=== PATIENT | male | born 1955 | race Caucasian/White ===

== ENCOUNTER 2019-04-06 09:40 | Inpatient (IN) | payer OTHER ==
[~2019-04-06 09:40] MED LIST: EPINEPHrine 1 MG/1 ML Amp ONE; Labetalol 100 MG/20 ML MDV ONE; Lidocaine 1% 10 ML MDV ONE; Midazolam 1 MG/ML 5 ML SDV ONE; methylPREDNISolone Sodium Succinate 125 MG/2 ML SDV ONE
[2019-04-06] MEDS ORDERED: methylPREDNISolone Sodium Succinate 125 MG/2 ML SDV ONE (09:51)
[2019-04-06] MEDS ORDERED: Sodium Chloride 0.9% 10 ML Syringe FLUSH PRN (09:52)
[2019-04-06] MEDS ORDERED: methylPREDNISolone Sodium Succinate 125 MG/2 ML SDV IVPUSH ONE (09:54)
--- NOTE | 2019-04-06 09:54 | EDM.PDOC ---
ED HPI GENERAL MEDICAL PROBLEM - General Chief Complaint: Respiratory Problem Stated Complaint: [facility] Time Seen by Provider: 04/06/19 09:40 Source of Information: Reports: Patient, RN Notes Reviewed - History of Present Illness INITIAL COMMENTS - FREE TEXT/NARRATIVE: 64-year-old male has been brought in by [facility] [facility] ambulance with severe difficulty breathing. He does have advanced COPD. He is chronically short of breath but had been doing fine during the night and had been up for close to an hour this morning also continuing to do okay when he suddenly said "I can't breathe". He does have chronic cough associated with his COPD but has not been coughing more than typical. His states that he did do fine with his breathing during the night and seemed to be doing okay this morning until his sudden difficulty getting enough air. Family apparently did have an oximeter and his sats were down into the 60s prior to EMS arrival. On EMS arrival he was down to around 50, very dusky face and upper body. He does have history of pneumonia. His states that he very that he very strongly has made it known that he does not want to be intubated or on a ventilator. - Related Data Allergies Allergy/AdvReac Type Severity Reaction Status Date / Time No Known Allergies Allergy Verified 04/06/19 11:46 Home Meds: Home Meds Albuterol Sulfate [Albuterol Sulfate Hfa] 2 puff IH Q4HR PRN 10/16/18 [History] Albuterol/Ipratropium [DuoNeb 3.0-0.5 MG/3 ML] 3 ml IH BID 10/16/18 [History] Budesonide/Formoterol Fumarate [Symbicort 80-4.5 Mcg Inhaler] 2 puff IH BID [History] Tiotropium [place] [Spiriva Respimat] 2.5 mcg IH DAILY 10/16/18 [History] ED ROS GENERAL - Review of Systems Review Of Systems: Unable To Obtain (Unable to obtain complete ROS, the information I am getting is from his and daughter) Constitutional: Denies: Fever, Chills, Diaphoresis HEENT: Denies: Throat Pain Respiratory: Reports: Shortness of Breath, Cough. Denies: Hemoptysis Skin: Reports: Change in Color (Face and upper body was very dusky upon EMS arrival) ED EXAM, GENERAL - Physical Exam Exam: See Below General Appearance: Obtunded, Severe Distress Eye Exam: Bilateral Eye: PERRL Throat/Mouth: Normal Inspection Head: Atraumatic. No: Facial Swelling Neck: Supple, Other (Bilateral JVD) Respiratory/Chest: Respiratory Distress (Severe), Wheezing (Mild bilateral), Accessory Muscle Use, Retractions (Moderate) Cardiovascular: Tachycardia (132) GI/Abdominal: Soft, Non-Tender. No: Distended Extremities: No Pedal Edema. No: Increased Warmth, Redness (Legs are not red or swollen) Neurological: Unresponsive Skin Exam: Dry, Other (Face and upper body still somewhat dusky on arrival to ED ) Course - Vital Signs Last Recorded V/S: Last Vital Signs Temp 98.5 F 04/06/19 11:49 Pulse 130 H 04/06/19 11:49 Resp 23 H 04/06/19 11:49 BP 189/135 H 04/06/19 11:49 Pulse Ox 74 L 04/06/19 11:49 - Orders/Labs/Meds Orders: Active Orders 24 hr Category Date Time Status Oxygen Therapy [RC] ASDIRECTED Care 04/06/19 09:53 Active Peripheral IV Care [RC] Q2HR Care 04/06/19 09:53 Active RT Aerosol Therapy [RC] ASDIRECTED Care 04/06/19 09:54 Active Chest 1V-Tube Placement Chk NC [CR] Routine Exams 04/06/19 11:00 Taken Sodium Chloride 0.9% [Normal Saline] 1,000 ml Med 04/06/19 12:45 Active IV ASDIRECTED Sodium Chloride 0.9% [Saline Flush] Med 04/06/19 09:52 Active 10 ml FLUSH ASDIRECTED PRN Peripheral IV Insertion Adult [OM.PC] Stat Oth 04/06/19 09:53 Ordered Medication Orders Acetaminophen (Tylenol) 650 mg PO Q4H PRN PRN Reason: Pain (Mild 1-3)/fever Hydrocodone Bitart/Acetaminophen ([place] 325-5 Mg) 1 tab PO Q4H PRN PRN Reason: Pain (moderate 4-6) Albuterol (Proventil Hfa) 0 gm INH Q4H PRN PRN Reason: Shortness of Breath Albuterol/Ipratropium (Duoneb 3.0-0.5 Mg/3 Ml) 3 ml INH BIDRT [facility] Bisacodyl (Dulcolax) 5 mg PO DAILY PRN PRN Reason: Constipation Docusate Sodium (Colace) 100 mg PO BID PRN PRN Reason: Constipation Glycopyrrolate (Seebri Neohaler) 0 mcg IH BIDRT [facility] Guaifenesin/Phenylephrine HCl (Robitussin Dm) 10 ml PO Q4H PRN PRN Reason: Cough Hydromorphone HCl (Dilaudid) 0.25 mg IVPUSH Q2H PRN PRN Reason: Pain (severe 7-10) Sodium Chloride (Normal Saline) 1,000 mls @ 150 mls/hr IV ASDIRECTED [facility] Last Admin: 04/06/19 12:42 Dose: 150 mls/hr Magnesium Sulfate/Dextrose 1 (gm/ Premix) 100 mls @ 100 mls/hr IV ONETIME ONE Stop: 04/06/19 14:59 Promethazine HCl 6.25 mg/ (Sodium Chloride) 50.25 mls @ 100 mls/hr IV Q6H PRN PRN Reason: Nausea/Vomiting Azithromycin 250 mg/ Sodium (Chloride) 250 mls @ 250 mls/hr IV Q24H [facility] Lorazepam (Ativan) 1 mg IV Q6H PRN PRN Reason: Anxiety Magnesium Oxide (Magnesium Oxide) 400 mg PO BID [facility] Methylprednisolone Sodium Succinate (Solu-Medrol) 125 mg IVPUSH Q8H [facility] Mometasone Furoate/Formoterol Fumar (Dulera 100-5 Mcg) 0 puff IH BIDRT [facility] Morphine Sulfate (Morphine) 1 mg IVPUSH Q2H PRN PRN Reason: Pain (severe 7-10) Stop: 04/07/19 14:02 Ondansetron HCl (Zofran) 4 mg IV Q6H PRN PRN Reason: Nausea/Vomiting Pantoprazole Sodium (Protonix Iv) 40 mg IV Q12HR [facility] Polyethylene Glycol (Miralax) 17 gm PO DAILY PRN PRN Reason: Constipation Senna/Docusate Sodium (Senna Plus) 1 tab PO BID PRN PRN Reason: Constipation Sodium Chloride (Saline Flush) 10 ml FLUSH ASDIRECTED PRN PRN Reason: Keep Vein Open Last Admin: 04/06/19 12:39 Dose: 10 ml Temazepam (Restoril) 7.5 mg PO BEDTIME PRN PRN Reason: Sleep Labs: Laboratory Tests 04/06/19 04/06/19 04/06/19 Range/Units 09:45 09:45 09:45 WBC 16.67 H (4.23-9.07) K/mm3 RBC 5.15 (4.63-6.08) M/mm3 Hgb 15.0 (13.7-17.5) gm/L Hct 47.1 (40.1-51.0) % MCV 91.5 (79.0-92.2) fl MCH 29.1 (25.7-32.2) pg MCHC 31.8 L (32.2-35.5) g/dl RDW Std Deviation 46.1 H (35.1-43.9) fL Plt Count 283 (163-337) K/mm3 MPV 10.2 (9.4-12.3) fl Neut % (Auto) 28.4 L (34.0-67.9) % Lymph % (Auto) 60.1 H (21.8-53.1) % [place] % (Auto) 7.0 (5.3-12.2) % Eos % (Auto) 3.3 (0.8-7.0) Baso % (Auto) 1.0 (0.1-1.2) % Neut # (Auto) 4.73 (1.78-5.38) K/mm3 Lymph # (Auto) 10.02 H (1.32-3.57) K/mm3 [place] # (Auto) 1.17 H (0.30-0.82) K/mm3 Eos # (Auto) 0.55 H (0.04-0.54) K/mm3 Baso # (Auto) 0.17 H (0.01-0.08) K/mm3 Manual Slide Review Normal smear PT 10.8 (9.5-12.1) SECONDS INR 0.99 APTT 27 (24-31) SECONDS ABG pH (7.35-7.45) ABG pCO2 (35.0-45.0) mmHg ABG pO2 (80.0-100.0) mmHg ABG HCO3 (22.0-26.0) meq/L ABG O2 Saturation (96.0-97.0) % ABG Base Excess (-2-2.0) Junaid Test A-a Gradient mmHg FiO2 (21.00-100.00) % Sodium 141 (136-145) mEq/L Potassium 4.3 (3.5-5.1) mEq/L Chloride 104 (98-107) mEq/L Carbon Dioxide 27 (21-32) mEq/L Anion Gap 14.3 (5-15) BUN 10 (7-18) mg/dL Creatinine 1.0 (0.7-1.3) mg/dL Est Cr Clr Drug Dosing TNP Estimated GFR (MDRD) > 60 (>60) mL/min BUN/Creatinine Ratio 10.0 L (14-18) Glucose 274 H (80-115) mg/dL Calcium 8.9 (8.5-10.1) mg/dL Total Bilirubin 1.1 H (0.2-1.0) mg/dL AST 23 (15-37) U/L ALT 26 (16-63) U/L Alkaline Phosphatase 78 (46-116) U/L C-Reactive Protein < 0.2 (<1.0) mg/dL Total Protein 7.5 (6.4-8.2) g/dl Albumin 4.0 (3.4-5.0) g/dl Globulin 3.5 gm/dL Albumin/Globulin Ratio 1.1 (1-2) 04/06/19 04/06/19 Range/Units 10:13 11:11 WBC (4.23-9.07) K/mm3 RBC (4.63-6.08) M/mm3 Hgb (13.7-17.5) gm/L Hct (40.1-51.0) % MCV (79.0-92.2) fl MCH (25.7-32.2) pg MCHC (32.2-35.5) g/dl RDW Std Deviation (35.1-43.9) fL Plt Count (163-337) K/mm3 MPV (9.4-12.3) fl Neut % (Auto) (34.0-67.9) % Lymph % (Auto) (21.8-53.1) % [place] % (Auto) (5.3-12.2) % Eos % (Auto) (0.8-7.0) Baso % (Auto) (0.1-1.2) % Neut # (Auto) (1.78-5.38) K/mm3 Lymph # (Auto) (1.32-3.57) K/mm3 [place] # (Auto) (0.30-0.82) K/mm3 Eos # (Auto) (0.04-0.54) K/mm3 Baso # (Auto) (0.01-0.08) K/mm3 Manual Slide Review PT (9.5-12.1) SECONDS INR APTT (24-31) SECONDS ABG pH 7.16 L* 7.24 L (7.35-7.45) ABG pCO2 71.5 H* 64.6 H (35.0-45.0) mmHg ABG pO2 428.0 H* 278.0 H* (80.0-100.0) mmHg ABG HCO3 24.5 26.6 H (22.0-26.0) meq/L ABG O2 Saturation 99.4 H 99.4 H (96.0-97.0) % ABG Base Excess -5.7 L -1.6 (-2-2.0) Junaid Test Positive Positive A-a Gradient 197 142 mmHg FiO2 0.00 L (21.00-100.00) % Sodium (136-145) mEq/L Potassium (3.5-5.1) mEq/L Chloride (98-107) mEq/L Carbon Dioxide (21-32) mEq/L Anion Gap (5-15) BUN (7-18) mg/dL Creatinine (0.7-1.3) mg/dL Est Cr Clr Drug Dosing Estimated GFR (MDRD) (>60) mL/min BUN/Creatinine Ratio (14-18) Glucose (80-115) mg/dL Calcium (8.5-10.1) mg/dL Total Bilirubin (0.2-1.0) mg/dL AST (15-37) U/L ALT (16-63) U/L Alkaline Phosphatase (46-116) U/L C-Reactive Protein (<1.0) mg/dL Total Protein (6.4-8.2) g/dl Albumin (3.4-5.0) g/dl Globulin gm/dL Albumin/Globulin Ratio (1-2) Meds: Medications Generic Name Dose Route Start Last Admin Trade Name Freq PRN Reason Stop Dose Admin Acetaminophen 650 mg 04/06/19 14:01 Tylenol PO Q4H PRN Pain (Mild 1-3)/fever Hydrocodone Bitart/Acetaminophen 1 tab 04/06/19 14:01 [place] 325-5 Mg PO Q4H PRN Pain (moderate 4-6) Albuterol 0 gm 04/06/19 13:58 Proventil Hfa INH Q4H PRN Shortness of Breath Albuterol/Ipratropium 3 ml 04/06/19 21:00 Duoneb 3.0-0.5 Mg/3 Ml INH BIDRT [facility] Bisacodyl 5 mg 04/06/19 14:01 Dulcolax PO DAILY PRN Constipation Docusate Sodium 100 mg 04/06/19 14:01 Colace PO BID PRN Constipation Glycopyrrolate 0 mcg 04/07/19 06:00 Seebri Neohaler IH BIDRT [facility] Guaifenesin/Phenylephrine HCl 10 ml 04/06/19 14:06 Robitussin Dm PO Q4H PRN Cough Hydromorphone HCl 0.25 mg 04/06/19 14:01 Dilaudid IVPUSH Q2H PRN Pain (severe 7-10) Sodium Chloride 1,000 mls @ 150 mls/hr 04/06/19 12:45 04/06/19 12:42 Normal Saline IV 150 mls/hr ASDIRECTED [facility] Administration Magnesium Sulfate/Dextrose 1 100 mls @ 100 mls/hr 04/06/19 14:00 gm/ Premix IV 04/06/19 14:59 ONETIME ONE Promethazine HCl 6.25 mg/ 50.25 mls @ 100 mls/hr 04/06/19 14:01 Sodium Chloride IV Q6H PRN Nausea/Vomiting Azithromycin 250 mg/ Sodium 250 mls @ 250 mls/hr 04/06/19 15:00 Chloride IV Q24H [facility] Lorazepam 1 mg 04/06/19 14:01 Ativan IV Q6H PRN Anxiety Magnesium Oxide 400 mg 04/06/19 21:00 Magnesium Oxide PO BID [facility] Methylprednisolone Sodium Succinate 125 mg 04/06/19 18:00 Solu-Medrol IVPUSH Q8H [facility] Mometasone Furoate/Formoterol Fumar 0 puff 04/06/19 21:00 Dulera 100-5 Mcg IH BIDRT [facility] Morphine Sulfate 1 mg 04/06/19 14:01 Morphine IVPUSH 04/07/19 14:02 Q2H PRN Pain (severe 7-10) Ondansetron HCl 4 mg 04/06/19 14:01 Zofran IV Q6H PRN Nausea/Vomiting Pantoprazole Sodium 40 mg 04/06/19 21:00 Protonix Iv IV Q12HR [facility] Polyethylene Glycol 17 gm 04/06/19 14:01 Miralax PO DAILY PRN Constipation Senna/Docusate Sodium 1 tab 04/06/19 14:01 Senna Plus PO BID PRN Constipation Sodium Chloride 10 ml 04/06/19 09:52 04/06/19 12:39 Saline Flush FLUSH 10 ml ASDIRECTED PRN Administration Keep Vein Open Temazepam 7.5 mg 04/06/19 14:01 Restoril PO BEDTIME PRN Sleep Discontinued Medications Generic Name Dose Route Start Last Admin Trade Name Freq PRN Reason Stop Dose Admin Albuterol/Ipratropium 3 ml 04/06/19 09:54 04/06/19 10:00 Duoneb 3.0-0.5 Mg/3 Ml NEB 04/06/19 09:55 3 ml ONETIME ONE Administration Dextrose/Lactated Ringer's 1,000 mls @ 999 mls/hr 04/06/19 12:45 04/06/19 09: 54 Dextrose 5%-Lactated Ringers IV 999 mls/hr ASDIRECTED [facility] Administration Labetalol HCl Confirm 04/06/19 10:03 04/06/19 10:04 Normodyne Administered 04/06/19 10:04 10 mg Dose Administration 100 mg .ROUTE .STK-MED ONE Lorazepam Confirm 04/06/19 12:29 04/06/19 12:40 Ativan Administered 04/06/19 12:30 Not Given Dose 2 mg .ROUTE .STK-MED ONE Lorazepam 1 mg 04/06/19 12:35 04/06/19 12:36 Ativan IV 04/06/19 12:36 1 mg ONETIME ONE Administration Methylprednisolone Sodium Succinate 125 mg 04/06/19 09:54 04/06/19 09:54 Solu-Medrol IVPUSH 04/06/19 09:55 125 mg ONETIME ONE Administration Methylprednisolone Sodium Succinate Confirm 04/06/19 09:51 04/06/19 12:39 Solu-Medrol Administered 04/06/19 09:52 Not Given Dose 125 mg .ROUTE .STK-MED ONE - Re-Assessments/Exams Free Text/Narrative Re-Assessment/Exam: 04/06/19 10:40. As noted patient still in severe respiratory distress on arrival to ED. Sats had improved from around 50 upon EMS arrival to upper 70s on arrival to the ED. This was with 15 L nonrebreather. His made it known right away that he had made it strongly known that he did not want to be intubated or on a ventilator should he get into a respiratory crisis like this. Therefore he was started on BiPAP immediately and also given DuoNeb as soon as possible. We did give 0.3 mils epi IM and Solu-Medrol 125 mg IV. Chest x-ray showed pneumothorax and on further review findings compatible with tension pneumothorax. Therefore needle was placed 2nd intercostal space midclavicular line on the left. There was not a gush of air but sats did immediately improve from around 90 up to 100% within a few minutes. I did call Dr. Arvizu, general surgeon supervisor contact lens to come in and place a chest tube. Postprocedure x-ray does show expansion of the lung [place] previously collapsed. We have decreased his FiO2 from 100% down to 70% over time. He sat still running 100%. Will recheck gases at this time. 04/06/19 11:45. Repeat gases are improved with pH now 7.24, PCO2 64.6 PO2 still elevated at 278. Blood pressure continues to run in the 90s systolic and receiving multiple doses of Versed IV at time of needle insertion and much higher dosage at time of chest tube insertion. He also was given 20 mg labetalol shortly after arrival with initial BP running about 192/130. He will be admitted ICU once they can move a patient out to make room. Departure - Departure Time of Disposition: 11:15 Disposition: Admitted As Inpatient 67 Condition: Serious Clinical Impression: Tension pneumothorax, COPD (chronic obstructive pulmonary disease) Respiratory failure Qualifiers: Chronicity: acute Respiratory failure complication: hypoxia and hypercapnia Qualified Code(s): J96.01 - Acute respiratory failure with hypoxia - Discharge Information ED Communication - Discussed Case With (1) Discussed Case With (1): Admitting Provider (Dr. Garcia, decision to admit at about 11:10) - My Orders Last 24 Hours: My Active Orders 04/06/19 09:52 Sodium Chloride 0.9% [Saline Flush] 10 ml FLUSH ASDIRECTED PRN 04/06/19 09:53 Oxygen Therapy [RC] ASDIRECTED Peripheral IV Care [RC] Q2HR Peripheral IV Insertion Adult [OM.PC] Stat 04/06/19 09:54 RT Aerosol Therapy [RC] ASDIRECTED 04/06/19 11:00 Chest 1V-Tube Placement Chk NC [CR] Routine 04/06/19 12:45 Sodium Chloride 0.9% [Normal Saline] 1,000 ml IV ASDIRECTED - Assessment/Plan Last 24 Hours: My Active Orders 04/06/19 09:52 Sodium Chloride 0.9% [Saline Flush] 10 ml FLUSH ASDIRECTED PRN 04/06/19 09:53 Oxygen Therapy [RC] ASDIRECTED Peripheral IV Care [RC] Q2HR Peripheral IV Insertion Adult [OM.PC] Stat 04/06/19 09:54 RT Aerosol Therapy [RC] ASDIRECTED 04/06/19 11:00 Chest 1V-Tube Placement Chk NC [CR] Routine 04/06/19 12:45 Sodium Chloride 0.9% [Normal Saline] 1,000 ml IV ASDIRECTED
[2019-04-06] MEDS: Albuterol/Ipratropium 3.0-0.5 MG/3 ML Neb Soln NEB ONE ×2 (10:00→14:31)
[2019-04-06] MEDS ORDERED: Labetalol 100 MG/20 ML MDV ONE (10:03)
--- NOTE | 2019-04-06 10:37 | CR ---
Chest: Portable view of the chest was obtained. Comparison: No prior chest x-ray. Large left sided pneumothorax is seen. Lungs are otherwise hyperinflated compatible with emphysematous change. Heart size is not enlarged. Bony structures are grossly intact. Impression: 1. Large left-sided pneumothorax which will require a chest tube. 2. Emphysematous change. Diagnostic code #5
--- NOTE | 2019-04-06 12:25 | OR ---
DATE OF OPERATION: 04/06/2019 SURGEON: Toro Arvizu MD PREOPERATIVE DIAGNOSIS: Tension pneumothorax on the left. POSTOPERATIVE DIAGNOSIS: Tension pneumothorax on the left. OPERATION PERFORMED: Emergent chest tube placement on the left. ESTIMATED BLOOD LOSS: Less than 1 mL. COMPLICATIONS: None. DISPOSITION: Respiratory failure prior to the procedure. CONDITION: Improved postoperatively with a saturation of 100%. FINDINGS: As soon as I entered the thorax, there was a rapid espino of pressurized air emitting from the thoracostomy. The preoperative chest x-ray demonstrated what appeared to be tension with shifting of the mediastinum to the right and a large pneumothorax with collapsed left lung secondary to pneumothorax. DESCRIPTION OF PROCEDURE: The patient could not give consent. He was not responding appropriately due to respiratory failure. His was at the bedside and I did thoroughly inform her his clinical condition, the risks, benefits, and alternatives. The risks include, but are not limited to further surgery, bleeding, infection, and others. She gave informed consent. The left arm was secured to the bed with a Kerlix roll. The left chest was prepped and draped in the usual sterile fashion. The 5th interspace was identified lateral to the pectorals major. An incision was created on the skin after infusion with 1% lidocaine without epinephrine. The skin and subcutaneous tissue were anesthetized. I made an incision with a #11 blade, approximately 13 mm. I dissected down to the intercostal muscles. The intercostal muscles were opened sharply with Metzenbaum scissors. I passed a Mara clamp directly into the thorax and then this was followed with a 28-Liberian thoracostomy tube. I got a rapid espino of pressurized air through the thoracostomy. Once the tube was in place, it was secured with 0 Vicryl suture material. Two sutures were used for this purpose and then connected contemporaneously with the Hemovac and placed this on suction. His saturation immediately went to 100%. Sterile dressing was applied first with petroleum gauze followed by a stack of 4x4s. This was secured in place with tape. Mesentery was created to take the tension off the tube with a silk tape. The tube was secured with silk tape and its interface with the Pleur- evac tubing. Chest x-ray showed resolution of the pneumothorax, though he does have a large bleb in the lower lobe. ANESTHESIA: MMODAL /[id number]
[2019-04-06] MEDS ORDERED: LORazepam 2 MG/ML SDV ONE (12:29)
[2019-04-06] MEDS ORDERED: LORazepam 2 MG/ML SDV IV ONE (12:35)
[2019-04-06] MEDS: Sodium Chloride 0.9% 1,000 ML IV SCH (12:42)
[2019-04-06] MEDS ORDERED: Dextrose 5%-Lactated Ringers 1,000 ML IV SCH (12:45)
--- NOTE | 2019-04-06 13:46 | PCM.HP.2 ---
H&P History of Present Illness - General Date of Service: 04/06/19 Admit Problem/Dx: Admission Diagnosis/Problem Admission Diagnosis/Problem Pneumothorax on left Source of Information: Patient, Old Records, Provider, RN Notes Reviewed History Limitations: Reports: Respiratory Distress - History of Present Illness Initial Comments - Free Text/Narative: This is a 64 yo white male with past medical hx/o Advanced COPD and Hx/o Smoking who presents to ED via ambulance in respiratory distress that happened at rest. He carries a hx/o advanced pulmonary insufficiency and is chronically short of air with baseline 2L NC at night and at rest during the day. His last known well was last night but this morning he suddenly developed dyspnea. His family checked his O2 sat via pulse oximeter and he was found sating in the 60s. His family states he was choking and looked like turning blue. Patient was on 15L NRM upon presentation to ED but then immediately switched to BIPAP. However he was found with a large left sided pneumothorax on chest x-ray. Urgent needle decompression was performed and a chest tube was put in on his left flank for further management. He received bronchodilators, steroids and epinephrine prior to transfer to the unit. His initial work up in ED shows a CBC remarkable for WBC of 16.67, MCHC of 31.8 , RDW of 46.1, Neutrophils of 28.4%, Lymphocytes # of 10.02, Monocyte # of 1.17 , Eosinophils # of 0.55, and Basophils # of 0.17. His chemistry shows BS of 274 , and Total Bilirubin of 1.1. Patient is coming in for further management of spontaneous pneumothorax status post chest tube placement. Left Chest Pain Score (Numeric/FACES): 1 - Related Data Allergies/Adverse Reactions: Allergies Allergy/AdvReac Type Severity Reaction Status Date / Time No Known Allergies Allergy Verified 04/06/19 11:46 Home Medications: Home Meds Albuterol Sulfate [Albuterol Sulfate Hfa] 2 puff IH Q4HR PRN 10/16/18 [History] Albuterol/Ipratropium [DuoNeb 3.0-0.5 MG/3 ML] 3 ml IH BID 10/16/18 [History] Budesonide/Formoterol Fumarate [Symbicort 80-4.5 Mcg Inhaler] 2 puff IH BID [History] Tiotropium [place] [Spiriva Respimat] 2.5 mcg IH DAILY 10/16/18 [History] Past Medical History Respiratory History: Reports: Asthma, COPD, Pneumonia, Recurrent Social & Family History - Tobacco Use Smoking Status *Q: Former Smoker Used Tobacco, but Quit: Yes Month/Year Tobacco Last Used: 2007 H&P Review of Systems - Review of Systems: Review Of Systems: ROS reveals no pertinent complaints other than HPI. Exam - Exam Exam: See Below - Vital Signs Vital Signs: Last Vital Signs Temp 36.9 C 04/06/19 11:49 Pulse 130 H 04/06/19 11:49 Resp 23 H 04/06/19 11:49 BP 189/135 H 04/06/19 11:49 Pulse Ox 74 L 04/06/19 11:49 - Exam Quality Assessment: Supplemental Oxygen General: Alert, Cooperative HEENT: Conjunctiva Clear, EOMI, Pupils Equal, Pupils Reactive Neck: Supple, Trachea Midline Lungs: Normal Respiratory Effort, Decreased Breath Sounds, Other (chest tube in left flank with water sealed chest drain) Cardiovascular: Regular Rate, Regular Rhythm GI/Abdominal Exam: Normal Bowel Sounds, Soft, Non-Tender, No Organomegaly, No Distention, No Abnormal Bruit (Male) Exam: Deferred Rectal (Males) Exam: Deferred Back Exam: Normal Inspection, Decreased Range of Motion Extremities: Normal Inspection, Normal Range of Motion, Non-Tender, No Pedal Edema, Normal Capillary Refill Peripheral Pulses: 2+: Posterior Tibial (L), Posterior Tibial (R), Dorsalis Pedis (L), Dorsalis Pedis (R) Skin: Warm, Dry, Intact Neuro Extensive - Mental Status: Oriented x3, Normal Cognition, Memory Intact Neuro Extensive - Motor, Sensory, Reflexes: CN II-XII Intact (limited due to chest tube placement) Psychiatric: Alert, Normal Affect, Normal Mood - Patient Data Lab Results Last 24 hrs: Laboratory Results - last 24 hr 04/06/19 04/06/19 04/06/19 Range/Units 09:45 09:45 09:45 WBC 16.67 H (4.23-9.07) K/mm3 RBC 5.15 (4.63-6.08) M/mm3 Hgb 15.0 (13.7-17.5) gm/L Hct 47.1 (40.1-51.0) % MCV 91.5 (79.0-92.2) fl MCH 29.1 (25.7-32.2) pg MCHC 31.8 L (32.2-35.5) g/dl RDW Std Deviation 46.1 H (35.1-43.9) fL Plt Count 283 (163-337) K/mm3 MPV 10.2 (9.4-12.3) fl Neut % (Auto) 28.4 L (34.0-67.9) % Lymph % (Auto) 60.1 H (21.8-53.1) % [place] % (Auto) 7.0 (5.3-12.2) % Eos % (Auto) 3.3 (0.8-7.0) Baso % (Auto) 1.0 (0.1-1.2) % Neut # (Auto) 4.73 (1.78-5.38) K/mm3 Lymph # (Auto) 10.02 H (1.32-3.57) K/mm3 [place] # (Auto) 1.17 H (0.30-0.82) K/mm3 Eos # (Auto) 0.55 H (0.04-0.54) K/mm3 Baso # (Auto) 0.17 H (0.01-0.08) K/mm3 Manual Slide Review Normal smear PT 10.8 (9.5-12.1) SECONDS INR 0.99 APTT 27 (24-31) SECONDS ABG pH (7.35-7.45) ABG pCO2 (35.0-45.0) mmHg ABG pO2 (80.0-100.0) mmHg ABG HCO3 (22.0-26.0) meq/L ABG O2 Saturation (96.0-97.0) % ABG Base Excess (-2-2.0) Junaid Test A-a Gradient mmHg FiO2 (21.00-100.00) % Sodium 141 (136-145) mEq/L Potassium 4.3 (3.5-5.1) mEq/L Chloride 104 (98-107) mEq/L Carbon Dioxide 27 (21-32) mEq/L Anion Gap 14.3 (5-15) BUN 10 (7-18) mg/dL Creatinine 1.0 (0.7-1.3) mg/dL Est Cr Clr Drug Dosing TNP Estimated GFR (MDRD) > 60 (>60) mL/min BUN/Creatinine Ratio 10.0 L (14-18) Glucose 274 H (80-115) mg/dL Calcium 8.9 (8.5-10.1) mg/dL Total Bilirubin 1.1 H (0.2-1.0) mg/dL AST 23 (15-37) U/L ALT 26 (16-63) U/L Alkaline Phosphatase 78 (46-116) U/L C-Reactive Protein < 0.2 (<1.0) mg/dL Total Protein 7.5 (6.4-8.2) g/dl Albumin 4.0 (3.4-5.0) g/dl Globulin 3.5 gm/dL Albumin/Globulin Ratio 1.1 (1-2) 04/06/19 04/06/19 Range/Units 10:13 11:11 WBC (4.23-9.07) K/mm3 RBC (4.63-6.08) M/mm3 Hgb (13.7-17.5) gm/L Hct (40.1-51.0) % MCV (79.0-92.2) fl MCH (25.7-32.2) pg MCHC (32.2-35.5) g/dl RDW Std Deviation (35.1-43.9) fL Plt Count (163-337) K/mm3 MPV (9.4-12.3) fl Neut % (Auto) (34.0-67.9) % Lymph % (Auto) (21.8-53.1) % [place] % (Auto) (5.3-12.2) % Eos % (Auto) (0.8-7.0) Baso % (Auto) (0.1-1.2) % Neut # (Auto) (1.78-5.38) K/mm3 Lymph # (Auto) (1.32-3.57) K/mm3 [place] # (Auto) (0.30-0.82) K/mm3 Eos # (Auto) (0.04-0.54) K/mm3 Baso # (Auto) (0.01-0.08) K/mm3 Manual Slide Review PT (9.5-12.1) SECONDS INR APTT (24-31) SECONDS ABG pH 7.16 L* 7.24 L (7.35-7.45) ABG pCO2 71.5 H* 64.6 H (35.0-45.0) mmHg ABG pO2 428.0 H* 278.0 H* (80.0-100.0) mmHg ABG HCO3 24.5 26.6 H (22.0-26.0) meq/L ABG O2 Saturation 99.4 H 99.4 H (96.0-97.0) % ABG Base Excess -5.7 L -1.6 (-2-2.0) Junaid Test Positive Positive A-a Gradient 197 142 mmHg FiO2 0.00 L (21.00-100.00) % Sodium (136-145) mEq/L Potassium (3.5-5.1) mEq/L Chloride (98-107) mEq/L Carbon Dioxide (21-32) mEq/L Anion Gap (5-15) BUN (7-18) mg/dL Creatinine (0.7-1.3) mg/dL Est Cr Clr Drug Dosing Estimated GFR (MDRD) (>60) mL/min BUN/Creatinine Ratio (14-18) Glucose (80-115) mg/dL Calcium (8.5-10.1) mg/dL Total Bilirubin (0.2-1.0) mg/dL AST (15-37) U/L ALT (16-63) U/L Alkaline Phosphatase (46-116) U/L C-Reactive Protein (<1.0) mg/dL Total Protein (6.4-8.2) g/dl Albumin (3.4-5.0) g/dl Globulin gm/dL Albumin/Globulin Ratio (1-2) Result Diagrams: 04/07/19 04:50 04/07/19 04:50 Problem List Initiated/Reviewed/Updated: Yes Orders Last 24hrs: Active Orders 24 hr Category Date Time Status Admission Status [Patient Status] [ADT] Routine ADT 04/06/19 13:37 Active EKG 12 Lead [EKG Documentation Completion] [RC] STAT Care 04/06/19 09:53 Active Oxygen Therapy [RC] ASDIRECTED Care 04/06/19 09:53 Active Peripheral IV Care [RC] . DIRECTED Care 04/06/19 09:53 Active RT Aerosol Therapy [RC] ASDIRECTED Care 04/06/19 09:54 Active Chest 1V-Tube Placement Chk NC [CR] Routine Exams 04/06/19 11:00 Taken Dextrose 5%-Lactated Ringers 1,000 ml Med 04/06/19 12:45 Active IV ASDIRECTED Sodium Chloride 0.9% [Normal Saline] 1,000 ml Med 04/06/19 12:45 Active IV ASDIRECTED Sodium Chloride 0.9% [Saline Flush] Med 04/06/19 09:52 Active 10 ml FLUSH ASDIRECTED PRN Peripheral IV Insertion Adult [OM.PC] Stat Oth 04/06/19 09:53 Ordered Medication Orders Dextrose/Lactated Ringer's (Dextrose 5%-Lactated Ringers) 1,000 mls @ 999 mls/ hr IV ASDIRECTED MICHELE Last Admin: 04/06/19 09:54 Dose: 999 mls/hr Sodium Chloride (Normal Saline) 1,000 mls @ 150 mls/hr IV ASDIRECTED MICHELE Last Admin: 04/06/19 12:42 Dose: 150 mls/hr Sodium Chloride (Saline Flush) 10 ml FLUSH ASDIRECTED PRN PRN Reason: Keep Vein Open Last Admin: 04/06/19 12:39 Dose: 10 ml Assessment/Plan Comment:: Assessment: Acute: Spontaneous Pneumothorax - Developed sudden onset of dyspnea at rest with O2 sat in the 602 prior to arrival to ED - Severe respiratory distress in ED and was on 15L of NRM - Was initially on BIPAP then treated with Douneb, Epi, and Solumedrol - CXR shows large left sided pneumothorax with pleural bled - Had immediate needle decompression while in ED and chest tube was put in by Dr. Arvizu - Consulted Dr. Arvizu for chest tube management - PRN analgesic medications for pain management [employer] Exacerbation - Carries a hx/o Advanced COPD; suspect A1A as it runs in the family: dad and a brother who had pulmonary transplantation - He follows pulmonology in [place] - Transplant candidate but refused it per family - Steroid, Bronchodilators, Smooth Muscle Relaxant, Supplemental O2 and Anti- inflammatory agent Accelerated Hypertensive - Document BP f 192/130 in ED - 2/2 Epinephrine administration - He is now back to baseline Chronic: Advanced COPD (Suspect A1A Deficiency) and Hx/o Smoking Plan: Admit to ICU for chest tube management Resume Some Home Meds Routine AM Labs RT consult to assess and treat DVT/GI Prophylaxis Regular Diet Activity with assistance GS consult with Dr. Arvizu for chest tube management SW/CM for d/c planning Code status: DNR/DNI Additional orders as above Prognosis good - Mortality Measure Prognosis:: Good
[2019-04-06] MEDS ORDERED: Albuterol 6.7 GM Inhaler INH PRN (13:58)
[2019-04-06] MEDS ORDERED: HYDROmorphone 0.5 MG/0.5 ML Syringe IVPUSH PRN (14:01)
[2019-04-06] MEDS ORDERED: Bisacodyl 5 MG Tab PO PRN (14:01)
[2019-04-06] MEDS ORDERED: LORazepam 2 MG/ML SDV IV PRN (14:01)
[2019-04-06] MEDS ORDERED: Promethazine 6.25 MG in Sodium Chloride 0.9% 50 ML IV PRN (14:01)
[2019-04-06] MEDS ORDERED: Acetaminophen 325 MG Tab PO PRN (14:01)
[2019-04-06] MEDS ORDERED: Polyethylene Glycol 3350 Powder 17 GM Packet PO PRN (14:01)
[2019-04-06] MEDS ORDERED: Docusate Sodium 100 MG Cap PO PRN (14:01)
[2019-04-06] MEDS ORDERED: Ondansetron 4 MG/2 ML SDV IV PRN (14:01)
[2019-04-06] MEDS ORDERED: Temazepam 7.5 MG Cap PO PRN (14:01)
[2019-04-06] MEDS ORDERED: guaiFENesin/Dextromethorphan 100-10 MG/5 ML Soln 5 ML Cup PO PRN (14:06)
[2019-04-06] MEDS ORDERED: Albuterol/Ipratropium 3.0-0.5 MG/3 ML Neb Soln ONE (14:29)
[2019-04-06] MEDS: Azithromycin 250 MG in Sodium Chloride 0.9% 250 ML IV SCH (15:01)
[2019-04-06] MEDS ORDERED: Albuterol/Ipratropium 3.0-0.5 MG/3 ML Neb Soln NEB PRN (15:08)
[2019-04-06] MEDS: methylPREDNISolone Sodium Succinate 125 MG/2 ML SDV IVPUSH SCH (17:37)
[2019-04-06] MEDS: Magnesium Oxide 400 MG Tab PO SCH (20:00)
[2019-04-06] MEDS: Pantoprazole 40 MG Vial IV SCH (20:00)
[2019-04-06] MEDS: Morphine 2 MG/ML Syringe IVPUSH PRN (20:26)
[2019-04-06] MEDS: Acetaminophen/HYDROcodone 325-5 MG Tab PO PRN (21:45)
[2019-04-06] MEDS: Formoterol/Mometasone 100-5 MCG 8.8 GM Inhaler IH SCH (21:52)
[2019-04-06] MEDS: Albuterol/Ipratropium 3.0-0.5 MG/3 ML Neb Soln INH SCH (21:52)
[2019-04-06] MEDS: Glycopyrrolate 15.6 MCG Cap.W.Dev Kit of 6 IH SCH (21:53)
[2019-04-07] MEDS: methylPREDNISolone Sodium Succinate 125 MG/2 ML SDV IVPUSH SCH ×3 (02:04→17:49)
[2019-04-07] MEDS: Sodium Chloride 0.9% 1,000 ML IV SCH (02:04)
[2019-04-07] MEDS ORDERED: Glycopyrrolate 15.6 MCG Cap.W.Dev Kit of 6 IH SCH (06:00)
[2019-04-07] MEDS: Glycopyrrolate 15.6 MCG Cap.W.Dev Kit of 6 IH SCH ×2 (06:11→20:16)
[2019-04-07] MEDS: Formoterol/Mometasone 100-5 MCG 8.8 GM Inhaler IH SCH ×2 (06:11→20:16)
[2019-04-07] MEDS: Albuterol/Ipratropium 3.0-0.5 MG/3 ML Neb Soln INH SCH ×2 (06:11→20:16)
[2019-04-07] MEDS: Morphine 2 MG/ML Syringe IVPUSH PRN (06:42)
--- NOTE | 2019-04-07 07:17 | PCM.PN ---
- General Info Date of Service: 04/07/19 Admission Dx/Problem (Free Text): Admission Diagnosis/Problem Admission Diagnosis/Problem Pneumothorax on left Subjective Update: Follow Up Functional Status: Reports: Pain Controlled, Tolerating Diet, Ambulating, Urinating. Denies: New Symptoms Pain Score: 1 - Review of Systems General: Denies: Fever, Weakness, Fatigue, Malaise, Chills HEENT: Reports: No Symptoms Pulmonary: Denies: Shortness of Breath Cardiovascular: Denies: Chest Pain, Palpitations, Dyspnea on Exertion Gastrointestinal: Denies: Abdominal Pain, Decreased Appetite, Nausea, Vomiting Genitourinary: Reports: No Symptoms Musculoskeletal: Reports: No Symptoms Skin: Denies: Diaphoresis, Bruising, Pruritis Neurological: Denies: Confusion, Difficulty Walking, Weakness, Gait Disturbance Psychiatric: Denies: Depression, Anxiety, Agitation, Hallucinations Systems Review Comment:: Had an uneventful night. He rested well and no acute issues this morning. His pain is controlled. He is off BIPAP since yesterday and now on supplemental O2 sating anywhere bet 94-98%. - Patient Data Vitals - Most Recent: Last Vital Signs Temp 36.9 C 04/07/19 04:00 Pulse 93 04/06/19 16:00 Resp 20 04/07/19 04:00 BP 114/64 04/07/19 04:00 Pulse Ox 98 04/07/19 06:14 Weight - Most Recent: 79.379 kg I&O - Last 24 Hours: Intake & Output 04/06/19 04/07/19 04/07/19 22:59 06:59 14:59 Intake Total 400 986 Output Total 765 320 Balance -365 666 Lab Results Last 24 Hours: Laboratory Results - last 24 hr 04/06/19 04/06/19 04/06/19 Range/Units 09:45 09:45 09:45 WBC 16.67 H (4.23-9.07) K/mm3 RBC 5.15 (4.63-6.08) M/mm3 Hgb 15.0 (13.7-17.5) gm/L Hct 47.1 (40.1-51.0) % MCV 91.5 (79.0-92.2) fl MCH 29.1 (25.7-32.2) pg MCHC 31.8 L (32.2-35.5) g/dl RDW Std Deviation 46.1 H (35.1-43.9) fL Plt Count 283 (163-337) K/mm3 MPV 10.2 (9.4-12.3) fl Neut % (Auto) 28.4 L (34.0-67.9) % Lymph % (Auto) 60.1 H (21.8-53.1) % Tyrrell % (Auto) 7.0 (5.3-12.2) % Eos % (Auto) 3.3 (0.8-7.0) Baso % (Auto) 1.0 (0.1-1.2) % Neut # (Auto) 4.73 (1.78-5.38) K/mm3 Lymph # (Auto) 10.02 H (1.32-3.57) K/mm3 Tyrrell # (Auto) 1.17 H (0.30-0.82) K/mm3 Eos # (Auto) 0.55 H (0.04-0.54) K/mm3 Baso # (Auto) 0.17 H (0.01-0.08) K/mm3 Manual Slide Review Normal smear PT 10.8 (9.5-12.1) SECONDS INR 0.99 APTT 27 (24-31) SECONDS ABG pH (7.35-7.45) ABG pCO2 (35.0-45.0) mmHg ABG pO2 (80.0-100.0) mmHg ABG HCO3 (22.0-26.0) meq/L ABG O2 Saturation (96.0-97.0) % ABG Base Excess (-2-2.0) Junaid Test A-a Gradient mmHg FiO2 (21.00-100.00) % Sodium 141 (136-145) mEq/L Potassium 4.3 (3.5-5.1) mEq/L Chloride 104 (98-107) mEq/L Carbon Dioxide 27 (21-32) mEq/L Anion Gap 14.3 (5-15) BUN 10 (7-18) mg/dL Creatinine 1.0 (0.7-1.3) mg/dL Est Cr Clr Drug Dosing TNP Estimated GFR (MDRD) > 60 (>60) mL/min BUN/Creatinine Ratio 10.0 L (14-18) Glucose 274 H (80-115) mg/dL Calcium 8.9 (8.5-10.1) mg/dL Magnesium (1.8-2.4) mg/dl Total Bilirubin 1.1 H (0.2-1.0) mg/dL AST 23 (15-37) U/L ALT 26 (16-63) U/L Alkaline Phosphatase 78 (46-116) U/L C-Reactive Protein < 0.2 (<1.0) mg/dL Total Protein 7.5 (6.4-8.2) g/dl Albumin 4.0 (3.4-5.0) g/dl Globulin 3.5 gm/dL Albumin/Globulin Ratio 1.1 (1-2) 04/06/19 04/06/19 04/07/19 Range/Units 10:13 11:11 04:50 WBC 14.09 H (4.23-9.07) K/mm3 RBC 4.47 L (4.63-6.08) M/mm3 Hgb 12.7 L D (13.7-17.5) gm/L Hct 40.5 (40.1-51.0) % MCV 90.6 (79.0-92.2) fl MCH 28.4 (25.7-32.2) pg MCHC 31.4 L (32.2-35.5) g/dl RDW Std Deviation 45.3 H (35.1-43.9) fL Plt Count 202 D (163-337) K/mm3 MPV 10.8 (9.4-12.3) fl Neut % (Auto) 89.0 H (34.0-67.9) % Lymph % (Auto) 9.5 L (21.8-53.1) % Tyrrell % (Auto) 1.2 L (5.3-12.2) % Eos % (Auto) 0.1 L (0.8-7.0) Baso % (Auto) 0.1 (0.1-1.2) % Neut # (Auto) 12.54 H (1.78-5.38) K/mm3 Lymph # (Auto) 1.34 (1.32-3.57) K/mm3 Tyrrell # (Auto) 0.17 L (0.30-0.82) K/mm3 Eos # (Auto) 0.01 L (0.04-0.54) K/mm3 Baso # (Auto) 0.01 (0.01-0.08) K/mm3 Manual Slide Review Abnormal smear PT (9.5-12.1) SECONDS INR APTT (24-31) SECONDS ABG pH 7.16 L* 7.24 L (7.35-7.45) ABG pCO2 71.5 H* 64.6 H (35.0-45.0) mmHg ABG pO2 428.0 H* 278.0 H* (80.0-100.0) mmHg ABG HCO3 24.5 26.6 H (22.0-26.0) meq/L ABG O2 Saturation 99.4 H 99.4 H (96.0-97.0) % ABG Base Excess -5.7 L -1.6 (-2-2.0) Junaid Test Positive Positive A-a Gradient 197 142 mmHg FiO2 0.00 L (21.00-100.00) % Sodium (136-145) mEq/L Potassium (3.5-5.1) mEq/L Chloride (98-107) mEq/L Carbon Dioxide (21-32) mEq/L Anion Gap (5-15) BUN (7-18) mg/dL Creatinine (0.7-1.3) mg/dL Est Cr Clr Drug Dosing Estimated GFR (MDRD) (>60) mL/min BUN/Creatinine Ratio (14-18) Glucose (80-115) mg/dL Calcium (8.5-10.1) mg/dL Magnesium (1.8-2.4) mg/dl Total Bilirubin (0.2-1.0) mg/dL AST (15-37) U/L ALT (16-63) U/L Alkaline Phosphatase (46-116) U/L C-Reactive Protein (<1.0) mg/dL Total Protein (6.4-8.2) g/dl Albumin (3.4-5.0) g/dl Globulin gm/dL Albumin/Globulin Ratio (1-2) 04/07/19 Range/Units 04:50 WBC (4.23-9.07) K/mm3 RBC (4.63-6.08) M/mm3 Hgb (13.7-17.5) gm/L Hct (40.1-51.0) % MCV (79.0-92.2) fl MCH (25.7-32.2) pg MCHC (32.2-35.5) g/dl RDW Std Deviation (35.1-43.9) fL Plt Count (163-337) K/mm3 MPV (9.4-12.3) fl Neut % (Auto) (34.0-67.9) % Lymph % (Auto) (21.8-53.1) % Tyrrell % (Auto) (5.3-12.2) % Eos % (Auto) (0.8-7.0) Baso % (Auto) (0.1-1.2) % Neut # (Auto) (1.78-5.38) K/mm3 Lymph # (Auto) (1.32-3.57) K/mm3 Tyrrell # (Auto) (0.30-0.82) K/mm3 Eos # (Auto) (0.04-0.54) K/mm3 Baso # (Auto) (0.01-0.08) K/mm3 Manual Slide Review PT (9.5-12.1) SECONDS INR APTT (24-31) SECONDS ABG pH (7.35-7.45) ABG pCO2 (35.0-45.0) mmHg ABG pO2 (80.0-100.0) mmHg ABG HCO3 (22.0-26.0) meq/L ABG O2 Saturation (96.0-97.0) % ABG Base Excess (-2-2.0) Junaid Test A-a Gradient mmHg FiO2 (21.00-100.00) % Sodium 139 (136-145) mEq/L Potassium 4.4 (3.5-5.1) mEq/L Chloride 105 (98-107) mEq/L Carbon Dioxide 26 (21-32) mEq/L Anion Gap 12.4 (5-15) BUN 13 (7-18) mg/dL Creatinine 0.9 (0.7-1.3) mg/dL Est Cr Clr Drug Dosing TNP Estimated GFR (MDRD) > 60 (>60) mL/min BUN/Creatinine Ratio 14.4 (14-18) Glucose 187 H (80-115) mg/dL Calcium 9.0 (8.5-10.1) mg/dL Magnesium 1.9 (1.8-2.4) mg/dl Total Bilirubin (0.2-1.0) mg/dL AST (15-37) U/L ALT (16-63) U/L Alkaline Phosphatase (46-116) U/L C-Reactive Protein (<1.0) mg/dL Total Protein (6.4-8.2) g/dl Albumin (3.4-5.0) g/dl Globulin gm/dL Albumin/Globulin Ratio (1-2) Med Orders - Current: Current Medications Acetaminophen (Tylenol) 650 mg PO Q4H PRN PRN Reason: Pain (Mild 1-3)/fever Hydrocodone Bitart/Acetaminophen (Lipan 325-5 Mg) 1 tab PO Q4H PRN PRN Reason: Pain (moderate 4-6) Last Admin: 04/06/19 21:45 Dose: 1 tab Albuterol (Proventil Hfa) 0 gm INH Q4H PRN PRN Reason: Shortness of Breath Albuterol/Ipratropium (Duoneb 3.0-0.5 Mg/3 Ml) 3 ml INH BIDRT [facility] Last Admin: 04/07/19 06:11 Dose: 3 ml Albuterol/Ipratropium (Duoneb 3.0-0.5 Mg/3 Ml) 3 ml NEB Q4HRRT PRN PRN Reason: Wheezing Bisacodyl (Dulcolax) 5 mg PO DAILY PRN PRN Reason: Constipation Docusate Sodium (Colace) 100 mg PO BID PRN PRN Reason: Constipation Glycopyrrolate (Seebri Neohaler) 0 mcg IH BIDRT [facility] Last Admin: 04/07/19 06:11 Dose: 1 cap Guaifenesin/Phenylephrine HCl (Robitussin Dm) 10 ml PO Q4H PRN PRN Reason: Cough Hydromorphone HCl (Dilaudid) 0.25 mg IVPUSH Q2H PRN PRN Reason: Pain (severe 7-10) Sodium Chloride (Normal Saline) 1,000 mls @ 150 mls/hr IV ASDIRECTED [facility] Last Admin: 04/07/19 02:04 Dose: 150 mls/hr Promethazine HCl 6.25 mg/ (Sodium Chloride) 50.25 mls @ 100 mls/hr IV Q6H PRN PRN Reason: Nausea/Vomiting Azithromycin 250 mg/ Sodium (Chloride) 250 mls @ 250 mls/hr IV Q24H [facility] Last Admin: 04/06/19 15:01 Dose: 250 mls/hr Lorazepam (Ativan) 1 mg IV Q6H PRN PRN Reason: Anxiety Magnesium Oxide (Magnesium Oxide) 400 mg PO BID [facility] Last Admin: 04/06/19 20:00 Dose: 400 mg Methylprednisolone Sodium Succinate (Solu-Medrol) 125 mg IVPUSH Q8H [facility] Last Admin: 04/07/19 02:04 Dose: 125 mg Mometasone Furoate/Formoterol Fumar (Dulera 100-5 Mcg) 0 puff IH BIDRT [facility] Last Admin: 04/07/19 06:11 Dose: 2 puff Morphine Sulfate (Morphine) 1 mg IVPUSH Q2H PRN PRN Reason: Pain (severe 7-10) Stop: 04/07/19 14:02 Last Admin: 04/07/19 06:42 Dose: 1 mg Ondansetron HCl (Zofran) 4 mg IV Q6H PRN PRN Reason: Nausea/Vomiting Pantoprazole Sodium (Protonix Iv) 40 mg IV Q12HR [facility] Last Admin: 04/06/19 20:00 Dose: 40 mg Polyethylene Glycol (Miralax) 17 gm PO DAILY PRN PRN Reason: Constipation Senna/Docusate Sodium (Senna Plus) 1 tab PO BID PRN PRN Reason: Constipation Sodium Chloride (Saline Flush) 10 ml FLUSH ASDIRECTED PRN PRN Reason: Keep Vein Open Last Admin: 04/06/19 12:39 Dose: 10 ml Temazepam (Restoril) 7.5 mg PO BEDTIME PRN PRN Reason: Sleep Discontinued Medications Albuterol/Ipratropium (Duoneb 3.0-0.5 Mg/3 Ml) 3 ml NEB ONETIME ONE Stop: 04/06/19 09:55 Last Admin: 04/06/19 14:31 Dose: 3 ml Albuterol/Ipratropium (Duoneb 3.0-0.5 Mg/3 Ml) Confirm Administered Dose 3 ml .ROUTE .STK-MED ONE Stop: 04/06/19 14:30 Last Admin: 04/06/19 15:07 Dose: Not Given Glycopyrrolate (Seebri Neohaler) 0 mcg IH BIDRT [facility] Dextrose/Lactated Ringer's (Dextrose 5%-Lactated Ringers) 1,000 mls @ 999 mls/ hr IV ASDIRECTED [facility] Last Admin: 04/06/19 09:54 Dose: 999 mls/hr Magnesium Sulfate/Dextrose 1 (gm/ Premix) 100 mls @ 100 mls/hr IV ONETIME ONE Stop: 04/06/19 14:59 Last Admin: 04/06/19 14:48 Dose: 100 mls/hr Labetalol HCl (Normodyne) Confirm Administered Dose 100 mg .ROUTE .STK-MED ONE Stop: 04/06/19 10:04 Last Admin: 04/06/19 10:04 Dose: 10 mg Lorazepam (Ativan) Confirm Administered Dose 2 mg .ROUTE .STK-MED ONE Stop: 04/06/19 12:30 Last Admin: 04/06/19 12:40 Dose: Not Given Lorazepam (Ativan) 1 mg IV ONETIME ONE Stop: 04/06/19 12:36 Last Admin: 04/06/19 12:36 Dose: 1 mg Methylprednisolone Sodium Succinate (Solu-Medrol) 125 mg IVPUSH ONETIME ONE Stop: 04/06/19 09:55 Last Admin: 04/06/19 09:54 Dose: 125 mg Methylprednisolone Sodium Succinate (Solu-Medrol) Confirm Administered Dose 125 mg .ROUTE .STK-MED ONE Stop: 04/06/19 09:52 Last Admin: 04/06/19 12:39 Dose: Not Given - Exam Quality Assessment: Supplemental Oxygen General: Alert, Oriented, Cooperative, No Acute Distress HEENT: Pupils Equal, Pupils Reactive, EOMI, Mucous Membr. Moist/[place] Lungs: Normal Respiratory Effort, Decreased Breath Sounds (on left upper lung), Wheezing Cardiovascular: Regular Rate, Regular Rhythm, Other (chest tube on left flank) GI/Abdominal Exam: Normal Bowel Sounds, Soft, Non-Tender, No Organomegaly, No Distention, No Abnormal Bruit, No Mass (Male) Exam: Other (indwelling roach catheter) Back Exam: Normal Inspection, Decreased Range of Motion Extremities: Normal Inspection, Normal Range of Motion, Non-Tender, No Pedal Edema, Normal Capillary Refill Peripheral Pulses: 2+: Posterior Tibial (L), Posterior Tibial (R), Dorsalis Pedis (L), Dorsalis Pedis (R) Skin: Warm, Dry, Intact Neurological: No New Focal Deficit Psy/Mental Status: Alert, Normal Affect, Normal Mood - Problem List Review Problem List Initiated/Reviewed/Updated: Yes - My Orders Last 24 Hours: My Active Orders 04/06/19 13:58 Albuterol [Proventil HFA] 0 gm INH Q4H PRN 04/06/19 14:01 Cardiac Monitoring [RC] CONTINUOUS Height and Weight [RC] 0400 Intake and Output [RC] Q2HR Oxygen Therapy [RC] PRN Up With Assistance [RC] ASDIRECTED VTE/DVT Education [RC] Consult to Case Management/Manufacturing Helper [CONS] Routine Consult to Spiritual Care [CONS] Routine OT Evaluation and Treatment [CONS] Routine PT Evaluation and Treatment [CONS] Routine Respiratory Care Assess and Treatment [CONS] Routine CULTURE SPUTUM + SMEAR [RM] Stat Acetaminophen [Tylenol] 650 mg PO Q4H PRN Acetaminophen/HYDROcodone [Lipan 325-5 MG] 1 tab PO Q4H PRN Bisacodyl [Dulcolax] 5 mg PO DAILY PRN Docusate Sodium [Colace] 100 mg PO BID PRN Docusate Sodium/Sennosides [Senna Plus] 1 tab PO BID PRN HYDROmorphone [Dilaudid] 0.25 mg IVPUSH Q2H PRN LORazepam [Ativan] 1 mg IV Q6H PRN Morphine 1 mg IVPUSH Q2H PRN Ondansetron [Zofran] 4 mg IV Q6H PRN Polyethylene Glycol 3350 [MiraLAX] 17 gm PO DAILY PRN Promethazine [Phenergan] 6.25 mg Sodium Chloride 0.9% [Normal Saline] 50 ml IV Q6H Temazepam [Restoril] 7.5 mg PO BEDTIME PRN 04/06/19 14:06 Dextromethorphan/guaiFENesin [Robitussin DM] 10 ml PO Q4H PRN 04/06/19 14:08 Consult to Physician [CONS] Routine 04/06/19 14:09 Notify Provider Consults [RC] ASDIRECTED 04/06/19 14:36 Resuscitation Status Routine 04/06/19 15:00 Azithromycin [Zithromax] 250 mg Sodium Chloride 0.9% [Normal Saline] 250 ml IV Q24H 04/06/19 15:08 Albuterol/Ipratropium [DuoNeb 3.0-0.5 MG/3 ML] 3 ml NEB Q4HRRT PRN 04/06/19 15:09 RT Aerosol Therapy [RC] ASDIRECTED 04/06/19 16:58 RT BiPAP/CPAP [RC] ASDIRECTED 04/06/19 18:00 methylPREDNISolone Sod Succ [Solu-MEDROL] 125 mg IVPUSH Q8H 04/06/19 18:32 Antiembolic Devices [RC] PER UNIT ROUTINE SCD [Sequential Compression Device] [OM.PC] Routine 04/06/19 21:00 Albuterol/Ipratropium [DuoNeb 3.0-0.5 MG/3 ML] 3 ml INH BIDRT Glycopyrrolate [Seebri Neohaler] 0 mcg IH BIDRT Magnesium Oxide 400 mg PO BID Mometasone/Formoterol [Dulera 100-5 MCG] 0 puff IH BIDRT Pantoprazole [ProTONIX IV] 40 mg IV Q12HR 04/06/19 Lunch Regular Diet [DIET] 04/07/19 04:50 A1C [GLYCOSYLATED HEMOGLOBIN,HGBA1C] [CHEM] AM 04/07/19 07:00 Chest 1V Frontal [CR] DAILY 04/08/19 05:11 BASIC METABOLIC PANEL,BMP [CHEM] AM CBC WITH AUTO DIFF [HEME] AM MAGNESIUM [CHEM] AM 04/08/19 07:00 Chest 1V Frontal [CR] DAILY 04/09/19 05:11 BASIC METABOLIC PANEL,BMP [CHEM] AM CBC WITH AUTO DIFF [HEME] AM MAGNESIUM [CHEM] AM 04/09/19 07:00 Chest 1V Frontal [CR] DAILY 04/10/19 05:11 BASIC METABOLIC PANEL,BMP [CHEM] AM CBC WITH AUTO DIFF [HEME] AM MAGNESIUM [CHEM] AM 04/10/19 07:00 Chest 1V Frontal [CR] DAILY 04/11/19 05:11 BASIC METABOLIC PANEL,BMP [CHEM] AM CBC WITH AUTO DIFF [HEME] AM MAGNESIUM [CHEM] AM 04/11/19 07:00 Chest 1V Frontal [CR] DAILY - Plan Plan:: Assessment: Acute: Spontaneous Pneumothorax - Developed sudden onset of dyspnea at rest with O2 sat in the 602 prior to arrival to ED - Severe respiratory distress in ED and was on 15L of NRM - Was initially on BIPAP then treated with Douneb, Epi, and Solumedrol - CXR shows large left sided pneumothorax with pleural bled - Had immediate needle decompression while in ED and chest tube was put in by Dr. Arvizu - Defer management to Dr. Arvizu - PRN analgesic medications for pain management SENIOR PRODUCTION SUPERVISOR Exacerbation, Improved - Carries a hx/o Advanced COPD; suspect A1A as it runs in the family: dad and a brother who had pulmonary transplantation - He follows pulmonology in [place] - Transplant candidate but refused it per family - Steroid, Bronchodilators, Smooth Muscle Relaxant, Supplemental O2 and Anti- inflammatory agent Resolved: S/p Accelerated Hypertensive - Document BP f 192/130 in ED - 2/2 Epinephrine administration - He is now back to baseline Chronic: Advanced COPD (Suspect A1A Deficiency) and Hx/o Smoking He is much better clinically Routine AM Labs RT consult to assess and treat DVT/GI Prophylaxis Regular Diet Activity with assistance Dr. Arvizu following SW/CM for d/c planning Code status: DNR/DNI Additional orders as above Prognosis remains good
[2019-04-07] MEDS ORDERED: Sodium Chloride 0.9% 1,000 ML IV SCH (07:30)
[2019-04-07 07:35] LABS: HEMOGLOBIN A1C 6.1 % (4.50-6.20)
[2019-04-07] MEDS: Pantoprazole 40 MG Vial IV SCH ×2 (08:38→20:07)
[2019-04-07] MEDS: Magnesium Oxide 400 MG Tab PO SCH ×2 (08:41→20:07)
--- NOTE | 2019-04-07 10:41 | PN ---
DATE OF SERVICE: 04/07/2019 SUBJECTIVE: The patient says he feels substantially better. He does not remember having a chest tube placed today. He came in obtunded, in respiratory failure secondary to a tension pneumothorax. He is now off his BiPAP saturating in the high 90s on 3 L nasal cannula. He is not complaining of any pain. He denies any shortness of breath. OBJECTIVE: GENERAL: He is alert. He looks comfortable, in no obvious distress. VITAL SIGNS: Temperature 97.8, pulse 108, respirations 20, blood pressure 143/79, and saturating 95% on 3 L nasal cannula. LUNGS: Clear to auscultation bilaterally. Breath sounds are equal. I have interrogated the chest tube. He still has an air leak. He is tidaling. LABORATORY DATA: Chest x-ray: I have reviewed the chest x-ray, which shows no pneumothorax. Chest tube is in good position in the left chest. ASSESSMENT: Emphysema, status post chest tube placement for tension pneumothorax. PLAN: Chest tube has to stay in place until his air leak resolves. When his air leak resolves, I will put him on clamp and reassess the chest x-ray. At that point, we can consider taking the chest tube out. However, as long as he has an air leak, the tube will have to stay for now. MAURIZIO /[id number]
[2019-04-07] MEDS: Acetaminophen/HYDROcodone 325-5 MG Tab PO PRN ×2 (14:15→20:30)
[2019-04-07] MEDS: Azithromycin 250 MG in Sodium Chloride 0.9% 250 ML IV SCH (15:19)
[2019-04-08] MEDS: methylPREDNISolone Sodium Succinate 125 MG/2 ML SDV IVPUSH SCH ×3 (02:38→22:15)
[2019-04-08] MEDS: Formoterol/Mometasone 100-5 MCG 8.8 GM Inhaler IH SCH ×2 (06:16→20:42)
[2019-04-08] MEDS: Albuterol/Ipratropium 3.0-0.5 MG/3 ML Neb Soln INH SCH ×2 (06:16→20:41)
[2019-04-08] MEDS: Glycopyrrolate 15.6 MCG Cap.W.Dev Kit of 6 IH SCH ×2 (06:17→20:42)
--- NOTE | 2019-04-08 06:25 | CR ---
Chest: Portable view of the chest was obtained. Comparison: Prior chest x-ray performed earlier on the same day (9:47 AM). Left-sided chest tube has been placed. Previous pneumothorax has been evacuated. Very minimal apical pneumothorax remains. Atelectasis and scarring is seen within the left lung. Lungs otherwise are clear. Heart size is normal. Upper mediastinum is normal. Impression: 1. Left-sided chest tube with majority of pneumothorax having been evacuated. Small apical pneumothorax remains. 2. Mild areas of scarring and atelectasis within the left lung. Diagnostic code #3 MTDD
--- NOTE | 2019-04-08 06:55 | CR ---
Chest: Portable view of the chest was obtained. Comparison: Prior chest x-ray of 04/06/19. Left-sided chest tube is seen. No pneumothorax is seen. Mild scarring or atelectasis is seen within the left base. Emphysematous change is noted. Heart size and mediastinum are normal. Impression: 1. Mild scarring or atelectasis within the left base. 2. Left-sided chest tube. 3. No pneumothorax is seen. 4. Stable emphysematous change. Diagnostic code #2 MTDD
--- NOTE | 2019-04-08 08:09 | CR ---
Chest: Portable view of the chest was obtained. Comparison: Prior chest x-ray of 04/07/19. Left-sided chest tube is seen. Mild atelectasis or scarring is noted within the left chest which is stable. Lungs are hyperinflated but otherwise clear. No pneumothorax is seen. Impression: 1. Emphysematous change. 2. Left-sided chest tube with no pneumothorax being seen. 3. Stable scarring or atelectasis within the left chest. Diagnostic code #2
[2019-04-08] MEDS: Acetaminophen/HYDROcodone 325-5 MG Tab PO PRN ×2 (08:21→12:21)
[2019-04-08] MEDS: Magnesium Oxide 400 MG Tab PO SCH ×2 (08:21→22:14)
[2019-04-08] MEDS: Pantoprazole 40 MG Vial IV SCH (08:23)
[2019-04-08] MEDS: Albuterol/Ipratropium 3.0-0.5 MG/3 ML Neb Soln NEB PRN ×2 (10:55→14:55)
--- NOTE | 2019-04-08 11:11 | PCM.PN ---
<Warner Doran - Last Filed: 04/08/19 14:25> - General Info Date of Service: 04/08/19 Admission Dx/Problem (Free Text): Admission Diagnosis/Problem Admission Diagnosis/Problem Pneumothorax on left Subjective Update: Patient is sitting comfortably eating breakfast during rounds today. Patient states that he is feeling much better today. The chest tube has not been bothering him much, and his pain has been well controlled. He notes only slight pruritis around the incision. Functional Status: Reports: Pain Controlled, Tolerating Diet, Ambulating - Review of Systems General: Denies: Fever, Chills HEENT: Reports: No Symptoms Pulmonary: Reports: Shortness of Breath Cardiovascular: Reports: No Symptoms Gastrointestinal: Reports: No Symptoms Genitourinary: Reports: No Symptoms Musculoskeletal: Reports: No Symptoms Skin: Reports: No Symptoms Neurological: Reports: No Symptoms Psychiatric: Reports: No Symptoms - Patient Data Vitals - Most Recent: Last Vital Signs Temp 98.5 F 04/08/19 08:00 Pulse 107 H 04/07/19 16:00 Resp 20 04/08/19 08:00 BP 121/74 04/08/19 08:00 Pulse Ox 96 04/08/19 10:55 Weight - Most Recent: 79.2 kg I&O - Last 24 Hours: Intake & Output 04/07/19 04/08/19 04/08/19 22:59 06:59 14:59 Intake Total 1131 300 Output Total 350 250 200 Balance 781 -250 100 Lab Results Last 24 Hours: Laboratory Results - last 24 hr 04/08/19 04/08/19 Range/Units 05:00 05:00 WBC 21.23 H (4.23-9.07) K/mm3 RBC 4.47 L (4.63-6.08) M/mm3 Hgb 13.2 L (13.7-17.5) gm/L Hct 40.2 (40.1-51.0) % MCV 89.9 (79.0-92.2) fl MCH 29.5 (25.7-32.2) pg MCHC 32.8 (32.2-35.5) g/dl RDW Std Deviation 46.1 H (35.1-43.9) fL Plt Count 218 (163-337) K/mm3 MPV 11.1 (9.4-12.3) fl Neut % (Auto) 92.1 H (34.0-67.9) % Lymph % (Auto) 4.4 L (21.8-53.1) % [place] % (Auto) 3.3 L (5.3-12.2) % Eos % (Auto) 0 L (0.8-7.0) Baso % (Auto) 0.0 L (0.1-1.2) % Neut # (Auto) 19.54 H (1.78-5.38) K/mm3 Lymph # (Auto) 0.94 L (1.32-3.57) K/mm3 [place] # (Auto) 0.71 (0.30-0.82) K/mm3 Eos # (Auto) 0.00 L (0.04-0.54) K/mm3 Baso # (Auto) 0.00 L (0.01-0.08) K/mm3 Manual Slide Review Abnormal smear Sodium 140 (136-145) mEq/L Potassium 4.1 (3.5-5.1) mEq/L Chloride 105 (98-107) mEq/L Carbon Dioxide 27 (21-32) mEq/L Anion Gap 12.1 (5-15) BUN 20 H (7-18) mg/dL Creatinine 0.9 (0.7-1.3) mg/dL Est Cr Clr Drug Dosing 92.21 mL/min Estimated GFR (MDRD) > 60 (>60) mL/min BUN/Creatinine Ratio 22.2 H (14-18) Glucose 159 H (80-115) mg/dL Calcium 9.0 (8.5-10.1) mg/dL Magnesium 1.9 (1.8-2.4) mg/dl Med Orders - Current: Current Medications Acetaminophen (Tylenol) 650 mg PO Q4H PRN PRN Reason: Pain (Mild 1-3)/fever Hydrocodone Bitart/Acetaminophen ([place] 325-5 Mg) 1 tab PO Q4H PRN PRN Reason: Pain (moderate 4-6) Last Admin: 04/08/19 08:21 Dose: 1 tab Albuterol (Proventil Hfa) 0 gm INH Q4H PRN PRN Reason: Shortness of Breath Albuterol/Ipratropium (Duoneb 3.0-0.5 Mg/3 Ml) 3 ml INH BIDRT [facility] Last Admin: 04/08/19 06:16 Dose: 3 ml Albuterol/Ipratropium (Duoneb 3.0-0.5 Mg/3 Ml) 3 ml NEB Q4HRRT PRN PRN Reason: Shortness of Breath Last Admin: 04/08/19 10:55 Dose: 3 ml Azithromycin (Zithromax) 250 mg PO Q24H [facility] Bisacodyl (Dulcolax) 5 mg PO DAILY PRN PRN Reason: Constipation Docusate Sodium (Colace) 100 mg PO BID PRN PRN Reason: Constipation Glycopyrrolate (Seebri Neohaler) 0 mcg IH BIDRT [facility] Last Admin: 04/08/19 06:17 Dose: 1 cap Guaifenesin/Phenylephrine HCl (Robitussin Dm) 10 ml PO Q4H PRN PRN Reason: Cough Hydromorphone HCl (Dilaudid) 0.25 mg IVPUSH Q2H PRN PRN Reason: Pain (severe 7-10) Promethazine HCl 6.25 mg/ (Sodium Chloride) 50.25 mls @ 100 mls/hr IV Q6H PRN PRN Reason: Nausea/Vomiting Lorazepam (Ativan) 1 mg IV Q6H PRN PRN Reason: Anxiety Magnesium Oxide (Magnesium Oxide) 400 mg PO BID [facility] Last Admin: 04/08/19 08:21 Dose: 400 mg Methylprednisolone Sodium Succinate (Solu-Medrol) 125 mg IVPUSH Q8H [facility] Last Admin: 04/08/19 10:03 Dose: 125 mg Mometasone Furoate/Formoterol Fumar (Dulera 100-5 Mcg) 0 puff IH BIDRT [facility] Last Admin: 04/08/19 06:16 Dose: 2 puff Ondansetron HCl (Zofran) 4 mg IV Q6H PRN PRN Reason: Nausea/Vomiting Pantoprazole Sodium (Protonix) 40 mg PO BID [facility] Polyethylene Glycol (Miralax) 17 gm PO DAILY PRN PRN Reason: Constipation Senna/Docusate Sodium (Senna Plus) 1 tab PO BID PRN PRN Reason: Constipation Sodium Chloride (Saline Flush) 10 ml FLUSH ASDIRECTED PRN PRN Reason: Keep Vein Open Last Admin: 04/06/19 12:39 Dose: 10 ml Temazepam (Restoril) 7.5 mg PO BEDTIME PRN PRN Reason: Sleep Discontinued Medications Albuterol/Ipratropium (Duoneb 3.0-0.5 Mg/3 Ml) 3 ml NEB ONETIME ONE Stop: 04/06/19 09:55 Last Admin: 04/06/19 14:31 Dose: 3 ml Albuterol/Ipratropium (Duoneb 3.0-0.5 Mg/3 Ml) Confirm Administered Dose 3 ml .ROUTE .STK-MED ONE Stop: 04/06/19 14:30 Last Admin: 04/06/19 15:07 Dose: Not Given Albuterol/Ipratropium (Duoneb 3.0-0.5 Mg/3 Ml) 3 ml NEB Q4HRRT PRN PRN Reason: Wheezing Glycopyrrolate (Seebri Neohaler) 0 mcg IH BIDRT [facility] Dextrose/Lactated Ringer's (Dextrose 5%-Lactated Ringers) 1,000 mls @ 999 mls/ hr IV ASDIRECTED [facility] Last Admin: 04/06/19 09:54 Dose: 999 mls/hr Sodium Chloride (Normal Saline) 1,000 mls @ 150 mls/hr IV ASDIRECTED [facility] Last Admin: 04/07/19 02:04 Dose: 150 mls/hr Magnesium Sulfate/Dextrose 1 (gm/ Premix) 100 mls @ 100 mls/hr IV ONETIME ONE Stop: 04/06/19 14:59 Last Admin: 04/06/19 14:48 Dose: 100 mls/hr Azithromycin 250 mg/ Sodium (Chloride) 250 mls @ 250 mls/hr IV Q24H [facility] Last Admin: 04/07/19 15:19 Dose: 250 mls/hr Sodium Chloride (Normal Saline) 1,000 mls @ 15 mls/hr IV ASDIRECTED [facility] Stop: 04/11/19 07:22 Labetalol HCl (Normodyne) Confirm Administered Dose 100 mg .ROUTE .STK-MED ONE Stop: 04/06/19 10:04 Last Admin: 04/06/19 10:04 Dose: 10 mg Lorazepam (Ativan) Confirm Administered Dose 2 mg .ROUTE .STK-MED ONE Stop: 04/06/19 12:30 Last Admin: 04/06/19 12:40 Dose: Not Given Lorazepam (Ativan) 1 mg IV ONETIME ONE Stop: 04/06/19 12:36 Last Admin: 04/06/19 12:36 Dose: 1 mg Methylprednisolone Sodium Succinate (Solu-Medrol) 125 mg IVPUSH ONETIME ONE Stop: 04/06/19 09:55 Last Admin: 04/06/19 09:54 Dose: 125 mg Methylprednisolone Sodium Succinate (Solu-Medrol) Confirm Administered Dose 125 mg .ROUTE .STK-MED ONE Stop: 04/06/19 09:52 Last Admin: 04/06/19 12:39 Dose: Not Given Morphine Sulfate (Morphine) 1 mg IVPUSH Q2H PRN PRN Reason: Pain (severe 7-10) Stop: 04/07/19 14:02 Last Admin: 04/07/19 06:42 Dose: 1 mg Pantoprazole Sodium (Protonix Iv) 40 mg IV Q12HR [facility] Last Admin: 04/08/19 08:23 Dose: 40 mg - Exam Quality Assessment: Supplemental Oxygen General: Alert, Oriented, Cooperative, No Acute Distress HEENT: Pupils Equal, Pupils Reactive, EOMI, Mucous Membr. Moist/[place] Neck: Supple, Trachea Midline, No JVD. No: JVD Lungs: Decreased Breath Sounds. No: Crackles, Rales, Rhonchi, Wheezing Cardiovascular: Regular Rhythm, No Murmurs, Tachycardia. No: Gallops, Rubs GI/Abdominal Exam: Normal Bowel Sounds, Soft, Non-Tender, No Organomegaly (Male) Exam: Deferred Back Exam: Normal Inspection, Full Range of Motion Extremities: Normal Inspection, Normal Range of Motion, Non-Tender, No Pedal Edema Skin: Warm, Dry, Intact Neurological: No New Focal Deficit, Normal Speech, Normal Tone, Cranial Nerves Intact Psy/Mental Status: Alert, Normal Affect, Normal Mood - Plan Plan:: Assessment: Acute: Spontaneous Pneumothorax - Developed sudden onset of dyspnea at rest with O2 sat in the 602 prior to arrival to ED - Severe respiratory distress in ED and was on 15L of NRM - Was initially on BIPAP then treated with Douneb, Epi, and Solumedrol - CXR shows large left sided pneumothorax with pleural bleb - Had immediate needle decompression while in ED and chest tube was put in by Dr. Arvizu - Defer management to Dr. Arvizu - PRN analgesic medications for pain management [employer] Exacerbation, Improved - Carries a hx/o Advanced COPD; suspect A1A as it runs in the family: dad and a brother who had pulmonary transplantation - He follows pulmonology in [place] - Transplant candidate but refused it per family - Steroid, Bronchodilators, Smooth Muscle Relaxant, Supplemental O2 and Anti- inflammatory agent; showing clinical improvement, continue medications Resolved: S/p Accelerated Hypertensive - Document BP f 192/130 in ED - 2/2 Epinephrine administration - He is now back to baseline Chronic: Advanced COPD (Suspect A1A Deficiency) and Hx/o Smoking He is much better clinically Routine AM Labs RT consult to assess and treat DVT/GI Prophylaxis Regular Diet Activity with assistance Dr. Arvizu following SW/CM for d/c planning Code status: DNR/DNI Additional orders as above Prognosis remains good <Irina Garcia T - Last Filed: 04/08/19 20:24> - Patient Data Vitals - Most Recent: Last Vital Signs Temp 36.9 C 04/08/19 16:00 Pulse 112 H 04/08/19 14:59 Resp 20 04/08/19 16:00 BP 114/88 04/08/19 16:00 Pulse Ox 96 04/08/19 16:00 I&O - Last 24 Hours: Intake & Output 04/08/19 04/08/19 04/08/19 06:59 14:59 22:59 Intake Total 300 700 Output Total 250 375 147 Balance -250 -75 553 Lab Results Last 24 Hours: Laboratory Results - last 24 hr 04/08/19 04/08/19 Range/Units 05:00 05:00 WBC 21.23 H (4.23-9.07) K/mm3 RBC 4.47 L (4.63-6.08) M/mm3 Hgb 13.2 L (13.7-17.5) gm/L Hct 40.2 (40.1-51.0) % MCV 89.9 (79.0-92.2) fl MCH 29.5 (25.7-32.2) pg MCHC 32.8 (32.2-35.5) g/dl RDW Std Deviation 46.1 H (35.1-43.9) fL Plt Count 218 (163-337) K/mm3 MPV 11.1 (9.4-12.3) fl Neut % (Auto) 92.1 H (34.0-67.9) % Lymph % (Auto) 4.4 L (21.8-53.1) % [place] % (Auto) 3.3 L (5.3-12.2) % Eos % (Auto) 0 L (0.8-7.0) Baso % (Auto) 0.0 L (0.1-1.2) % Neut # (Auto) 19.54 H (1.78-5.38) K/mm3 Lymph # (Auto) 0.94 L (1.32-3.57) K/mm3 [place] # (Auto) 0.71 (0.30-0.82) K/mm3 Eos # (Auto) 0.00 L (0.04-0.54) K/mm3 Baso # (Auto) 0.00 L (0.01-0.08) K/mm3 Manual Slide Review Abnormal smear Sodium 140 (136-145) mEq/L Potassium 4.1 (3.5-5.1) mEq/L Chloride 105 (98-107) mEq/L Carbon Dioxide 27 (21-32) mEq/L Anion Gap 12.1 (5-15) BUN 20 H (7-18) mg/dL Creatinine 0.9 (0.7-1.3) mg/dL Est Cr Clr Drug Dosing 92.21 mL/min Estimated GFR (MDRD) > 60 (>60) mL/min BUN/Creatinine Ratio 22.2 H (14-18) Glucose 159 H (80-115) mg/dL Calcium 9.0 (8.5-10.1) mg/dL Magnesium 1.9 (1.8-2.4) mg/dl Med Orders - Current: Current Medications Acetaminophen (Tylenol) 650 mg PO Q4H PRN PRN Reason: Pain (Mild 1-3)/fever Hydrocodone Bitart/Acetaminophen ([place] 325-5 Mg) 1 tab PO Q4H PRN PRN Reason: Pain (moderate 4-6) Last Admin: 04/08/19 12:21 Dose: 1 tab Albuterol (Proventil Hfa) 0 gm INH Q4H PRN PRN Reason: Shortness of Breath Albuterol/Ipratropium (Duoneb 3.0-0.5 Mg/3 Ml) 3 ml INH BIDRT [facility] Last Admin: 04/08/19 06:16 Dose: 3 ml Albuterol/Ipratropium (Duoneb 3.0-0.5 Mg/3 Ml) 3 ml NEB Q4HRRT PRN PRN Reason: Shortness of Breath Last Admin: 04/08/19 14:55 Dose: 3 ml Azithromycin (Zithromax) 250 mg PO Q24H [facility] Last Admin: 04/08/19 15:05 Dose: 250 mg Bisacodyl (Dulcolax) 5 mg PO DAILY PRN PRN Reason: Constipation Docusate Sodium (Colace) 100 mg PO BID PRN PRN Reason: Constipation Glycopyrrolate (Seebri Neohaler) 0 mcg IH BIDRT [facility] Last Admin: 04/08/19 06:17 Dose: 1 cap Guaifenesin/Phenylephrine HCl (Robitussin Dm) 10 ml PO Q4H PRN PRN Reason: Cough Hydromorphone HCl (Dilaudid) 0.25 mg IVPUSH Q2H PRN PRN Reason: Pain (severe 7-10) Promethazine HCl 6.25 mg/ (Sodium Chloride) 50.25 mls @ 100 mls/hr IV Q6H PRN PRN Reason: Nausea/Vomiting Lorazepam (Ativan) 1 mg IV Q6H PRN PRN Reason: Anxiety Magnesium Oxide (Magnesium Oxide) 400 mg PO BID [facility] Last Admin: 04/08/19 08:21 Dose: 400 mg Methylprednisolone Sodium Succinate (Solu-Medrol) 125 mg IVPUSH BID [facility] Mometasone Furoate/Formoterol Fumar (Dulera 100-5 Mcg) 0 puff IH BIDRT [facility] Last Admin: 04/08/19 06:16 Dose: 2 puff Ondansetron HCl (Zofran) 4 mg IV Q6H PRN PRN Reason: Nausea/Vomiting Pantoprazole Sodium (Protonix) 40 mg PO BID [facility] Polyethylene Glycol (Miralax) 17 gm PO DAILY PRN PRN Reason: Constipation Senna/Docusate Sodium (Senna Plus) 1 tab PO BID PRN PRN Reason: Constipation Sodium Chloride (Saline Flush) 10 ml FLUSH ASDIRECTED PRN PRN Reason: Keep Vein Open Last Admin: 08/17/19 12:39 Dose: 10 ml Temazepam (Restoril) 7.5 mg PO BEDTIME PRN PRN Reason: Sleep Discontinued Medications Albuterol/Ipratropium (Duoneb 3.0-0.5 Mg/3 Ml) 3 ml NEB ONETIME ONE Stop: 04/06/19 09:55 Last Admin: 04/06/19 14:31 Dose: 3 ml Albuterol/Ipratropium (Duoneb 3.0-0.5 Mg/3 Ml) Confirm Administered Dose 3 ml .ROUTE .STK-MED ONE Stop: 04/06/19 14:30 Last Admin: 04/06/19 15:07 Dose: Not Given Albuterol/Ipratropium (Duoneb 3.0-0.5 Mg/3 Ml) 3 ml NEB Q4HRRT PRN PRN Reason: Wheezing Epinephrine HCl (Adrenalin) 1 mg .ROUTE .STK-MED ONE Stop: 04/06/19 00:01 Glycopyrrolate (Seebri Neohaler) 0 mcg IH BIDRT [facility] Dextrose/Lactated Ringer's (Dextrose 5%-Lactated Ringers) 1,000 mls @ 999 mls/ hr IV ASDIRECTED [facility] Last Admin: 04/06/19 09:54 Dose: 999 mls/hr Sodium Chloride (Normal Saline) 1,000 mls @ 150 mls/hr IV ASDIRECTED [facility] Last Admin: 04/07/19 02:04 Dose: 150 mls/hr Magnesium Sulfate/Dextrose 1 (gm/ Premix) 100 mls @ 100 mls/hr IV ONETIME ONE Stop: 04/06/19 14:59 Last Admin: 04/06/19 14:48 Dose: 100 mls/hr Azithromycin 250 mg/ Sodium (Chloride) 250 mls @ 250 mls/hr IV Q24H [facility] Last Admin: 04/07/19 15:19 Dose: 250 mls/hr Sodium Chloride (Normal Saline) 1,000 mls @ 15 mls/hr IV ASDIRECTED [facility] Stop: 04/11/19 07:22 Labetalol HCl (Normodyne) Confirm Administered Dose 100 mg .ROUTE .STK-MED ONE Stop: 04/06/19 10:04 Last Admin: 04/06/19 10:04 Dose: 10 mg Labetalol HCl (Normodyne) 100 mg .ROUTE .STK-MED ONE Stop: 04/06/19 00:01 Lidocaine HCl (Xylocaine 1%) 10 ml .ROUTE .STK-MED ONE Stop: 04/06/19 00:01 Lorazepam (Ativan) Confirm Administered Dose 2 mg .ROUTE .STK-MED ONE Stop: 04/06/19 12:30 Last Admin: 04/06/19 12:40 Dose: Not Given Lorazepam (Ativan) 1 mg IV ONETIME ONE Stop: 04/06/19 12:36 Last Admin: 04/06/19 12:36 Dose: 1 mg Methylprednisolone Sodium Succinate (Solu-Medrol) 125 mg IVPUSH ONETIME ONE Stop: 04/06/19 09:55 Last Admin: 04/06/19 09:54 Dose: 125 mg Methylprednisolone Sodium Succinate (Solu-Medrol) Confirm Administered Dose 125 mg .ROUTE .STK-MED ONE Stop: 04/06/19 09:52 Last Admin: 04/06/19 12:39 Dose: Not Given Methylprednisolone Sodium Succinate (Solu-Medrol) 125 mg IVPUSH Q8H [facility] Last Admin: 04/08/19 10:03 Dose: 125 mg Methylprednisolone Sodium Succinate (Solu-Medrol) 125 mg .ROUTE .STK-MED ONE Stop: 04/06/19 00:01 Midazolam HCl (Versed 1 Mg/Ml) 5 mg .ROUTE .STK-MED ONE Stop: 04/06/19 00:01 Midazolam HCl (Versed 1 Mg/Ml) 5 mg .ROUTE .STK-MED ONE Stop: 04/06/19 00:01 Morphine Sulfate (Morphine) 1 mg IVPUSH Q2H PRN PRN Reason: Pain (severe 7-10) Stop: 04/07/19 14:02 Last Admin: 04/07/19 06:42 Dose: 1 mg Pantoprazole Sodium (Protonix Iv) 40 mg IV Q12HR [facility] Last Admin: 04/08/19 08:23 Dose: 40 mg - Problem List Review Problem List Initiated/Reviewed/Updated: Yes - My Orders Last 24 Hours: My Active Orders 04/08/19 15:00 Azithromycin [Zithromax] 250 mg PO Q24H 04/08/19 21:00 Pantoprazole [ProTONIX] 40 mg PO BID 04/08/19 Lunch Regular Diet [DIET] 04/09/19 05:11 BASIC METABOLIC PANEL,BMP [CHEM] AM CBC WITH AUTO DIFF [HEME] AM MAGNESIUM [CHEM] AM 04/09/19 07:00 Chest 1V Frontal [CR] DAILY 04/10/19 05:11 BASIC METABOLIC PANEL,BMP [CHEM] AM CBC WITH AUTO DIFF [HEME] AM MAGNESIUM [CHEM] AM 04/10/19 07:00 Chest 1V Frontal [CR] DAILY 04/11/19 05:11 BASIC METABOLIC PANEL,BMP [CHEM] AM CBC WITH AUTO DIFF [HEME] AM MAGNESIUM [CHEM] AM 04/11/19 07:00 Chest 1V Frontal [CR] DAILY - Plan Plan:: No overnight or acute issues. He is doing relatively well. His repeat chest x- ray report read as left sided chest tube with no pneumothorax being seen. We will continue current treatment and cut down his steroid frequency. Discharge pending removal of chest tube. The patient was seen and examined in concert with the medical student. The assessment and plans were discussed and agreed upon with me.
--- NOTE | 2019-04-08 12:55 | PN ---
DATE OF SERVICE: 04/08/2019 SUBJECTIVE: We have had no significant change. He denies any shortness of breath. The chest tube remains on suction with 20 cm of water. X-ray today again shows no evidence of a pneumothorax. Auscultation demonstrates what appears to be an air leak on suction on the left chest laterally. He has good expansion. No wheeze. Interrogation of the chest tube demonstrates an air leak. ASSESSMENT: 1. Emphysematous changes of both lungs. He has a large bleb in the left lower lung field. No pneumothorax is visualized. Chest tube is in good position. 2. Tension pneumothorax, status post chest tube placement. PLAN: I will try him on water-seal, discontinue his suction. I have asked him to let us know if he feels more short of breath and we will simply reconnect the suction and try again tomorrow. X-ray will be repeated tomorrow. MMODAL /[id number]
[2019-04-08] MEDS: Azithromycin 250 MG Tab PO SCH (15:05)
[2019-04-08] MEDS: Pantoprazole 40 MG Tab.CR PO SCH (22:14)
[2019-04-09] MEDS: Formoterol/Mometasone 100-5 MCG 8.8 GM Inhaler IH SCH ×2 (05:32→20:25)
[2019-04-09] MEDS: Albuterol/Ipratropium 3.0-0.5 MG/3 ML Neb Soln INH SCH ×2 (05:32→20:24)
[2019-04-09] MEDS: Glycopyrrolate 15.6 MCG Cap.W.Dev Kit of 6 IH SCH ×2 (05:32→20:24)
--- NOTE | 2019-04-09 08:30 | CR ---
Chest: Portable view of the chest was obtained. Comparison: Prior chest x-ray of 04/08/19. Left-sided chest tube is seen. Increasing interstitial perihilar change is noted within the left mid and lower lung from prior exam. Right lung remains clear. No discrete pneumothorax is seen. Bony structures show scoliosis within the spine. Lungs remain hyperinflated compatible with emphysematous change. Impression: 1. Left-sided chest tube remains stable. No pneumothorax is seen. 2. Increased perihilar interstitial change within the left mid and lower lung raising the possibility of bronchitis or early pneumonia as well as change from aspiration. Diagnostic code #3
[2019-04-09] MEDS: methylPREDNISolone Sodium Succinate 125 MG/2 ML SDV IVPUSH SCH (08:48)
[2019-04-09] MEDS: Magnesium Oxide 400 MG Tab PO SCH ×2 (08:49→21:05)
[2019-04-09] MEDS: Pantoprazole 40 MG Tab.CR PO SCH ×2 (08:49→21:06)
--- NOTE | 2019-04-09 09:11 | PCM.PN ---
<Warner Doran - Last Filed: 04/09/19 09:22> - General Info Date of Service: 04/09/19 Admission Dx/Problem (Free Text): Admission Diagnosis/Problem Admission Diagnosis/Problem Pneumothorax on left Subjective Update: Patient is sitting up in bed during rounds today. Patient reports he is feeling well today. He states he slept well last night. He has no pain with deep breaths. He states he coughed up only a small amount of sputum last night. Functional Status: Reports: Pain Controlled - Review of Systems General: Reports: No Symptoms HEENT: Reports: No Symptoms Pulmonary: Reports: Cough, Sputum. Denies: Pleuritic Chest Pain, Wheezing Cardiovascular: Reports: No Symptoms Gastrointestinal: Reports: No Symptoms Genitourinary: Reports: No Symptoms Musculoskeletal: Reports: No Symptoms Skin: Reports: No Symptoms Neurological: Reports: No Symptoms Psychiatric: Reports: No Symptoms - Patient Data Vitals - Most Recent: Last Vital Signs Temp 98.2 F 04/09/19 04:00 Pulse 112 H 04/08/19 14:59 Resp 14 04/09/19 04:00 BP 124/87 04/09/19 04:00 Pulse Ox 93 L 04/09/19 05:35 Weight - Most Recent: 74.707 kg I&O - Last 24 Hours: Intake & Output 04/08/19 04/09/19 04/09/19 22:59 06:59 14:59 Intake Total 700 400 Output Total 397 475 Balance 303 -75 Lab Results Last 24 Hours: Laboratory Results - last 24 hr 04/09/19 04/09/19 Range/Units 04:45 04:45 WBC 19.16 H (4.23-9.07) K/mm3 RBC 4.53 L (4.63-6.08) M/mm3 Hgb 13.4 L (13.7-17.5) gm/L Hct 40.5 (40.1-51.0) % MCV 89.4 (79.0-92.2) fl MCH 29.6 (25.7-32.2) pg MCHC 33.1 (32.2-35.5) g/dl RDW Std Deviation 45.7 H (35.1-43.9) fL Plt Count 232 (163-337) K/mm3 MPV 11.0 (9.4-12.3) fl Neut % (Auto) 91.9 H (34.0-67.9) % Lymph % (Auto) 4.6 L (21.8-53.1) % [place] % (Auto) 3.2 L (5.3-12.2) % Eos % (Auto) 0 L (0.8-7.0) Baso % (Auto) 0.1 (0.1-1.2) % Neut # (Auto) 17.62 H (1.78-5.38) K/mm3 Lymph # (Auto) 0.88 L (1.32-3.57) K/mm3 [place] # (Auto) 0.62 (0.30-0.82) K/mm3 Eos # (Auto) 0.00 L (0.04-0.54) K/mm3 Baso # (Auto) 0.01 (0.01-0.08) K/mm3 Manual Slide Review Normal smear Sodium 140 (136-145) mEq/L Potassium 4.0 (3.5-5.1) mEq/L Chloride 102 (98-107) mEq/L Carbon Dioxide 28 (21-32) mEq/L Anion Gap 14.0 (5-15) BUN 23 H (7-18) mg/dL Creatinine 0.8 (0.7-1.3) mg/dL Est Cr Clr Drug Dosing 99.87 mL/min Estimated GFR (MDRD) > 60 (>60) mL/min BUN/Creatinine Ratio 28.8 H (14-18) Glucose 153 H (80-115) mg/dL Calcium 9.2 (8.5-10.1) mg/dL Magnesium 2.1 (1.8-2.4) mg/dl Med Orders - Current: Current Medications Acetaminophen (Tylenol) 650 mg PO Q4H PRN PRN Reason: Pain (Mild 1-3)/fever Hydrocodone Bitart/Acetaminophen ([place] 325-5 Mg) 1 tab PO Q4H PRN PRN Reason: Pain (moderate 4-6) Last Admin: 04/08/19 12:21 Dose: 1 tab Albuterol (Proventil Hfa) 0 gm INH Q4H PRN PRN Reason: Shortness of Breath Albuterol/Ipratropium (Duoneb 3.0-0.5 Mg/3 Ml) 3 ml INH BIDRT [facility]HELE Last Admin: 04/09/19 05:32 Dose: 3 ml Albuterol/Ipratropium (Duoneb 3.0-0.5 Mg/3 Ml) 3 ml NEB Q4HRRT PRN PRN Reason: Shortness of Breath Last Admin: 04/08/19 14:55 Dose: 3 ml Azithromycin (Zithromax) 250 mg PO Q24H [facility] Last Admin: 04/08/19 15:05 Dose: 250 mg Bisacodyl (Dulcolax) 5 mg PO DAILY PRN PRN Reason: Constipation Docusate Sodium (Colace) 100 mg PO BID PRN PRN Reason: Constipation Glycopyrrolate (Seebri Neohaler) 0 mcg IH BIDRT [facility] Last Admin: 04/09/19 05:32 Dose: 1 cap Guaifenesin/Phenylephrine HCl (Robitussin Dm) 10 ml PO Q4H PRN PRN Reason: Cough Hydromorphone HCl (Dilaudid) 0.25 mg IVPUSH Q2H PRN PRN Reason: Pain (severe 7-10) Promethazine HCl 6.25 mg/ (Sodium Chloride) 50.25 mls @ 100 mls/hr IV Q6H PRN PRN Reason: Nausea/Vomiting Lorazepam (Ativan) 1 mg IV Q6H PRN PRN Reason: Anxiety Magnesium Oxide (Magnesium Oxide) 400 mg PO BID [facility] Last Admin: 04/09/19 08:49 Dose: 400 mg Methylprednisolone Sodium Succinate (Solu-Medrol) 125 mg IVPUSH BID [facility] Last Admin: 04/09/19 08:48 Dose: 125 mg Mometasone Furoate/Formoterol Fumar (Dulera 100-5 Mcg) 0 puff IH BIDRT [facility] Last Admin: 04/09/19 05:32 Dose: 2 puff Ondansetron HCl (Zofran) 4 mg IV Q6H PRN PRN Reason: Nausea/Vomiting Pantoprazole Sodium (Protonix) 40 mg PO BID [facility] Last Admin: 04/09/19 08:49 Dose: 40 mg Polyethylene Glycol (Miralax) 17 gm PO DAILY PRN PRN Reason: Constipation Senna/Docusate Sodium (Senna Plus) 1 tab PO BID PRN PRN Reason: Constipation Sodium Chloride (Saline Flush) 10 ml FLUSH ASDIRECTED PRN PRN Reason: Keep Vein Open Last Admin: 04/06/19 12:39 Dose: 10 ml Temazepam (Restoril) 7.5 mg PO BEDTIME PRN PRN Reason: Sleep Discontinued Medications Albuterol/Ipratropium (Duoneb 3.0-0.5 Mg/3 Ml) 3 ml NEB ONETIME ONE Stop: 04/06/19 09:55 Last Admin: 04/06/19 14:31 Dose: 3 ml Albuterol/Ipratropium (Duoneb 3.0-0.5 Mg/3 Ml) Confirm Administered Dose 3 ml .ROUTE .STK-MED ONE Stop: 04/06/19 14:30 Last Admin: 04/06/19 15:07 Dose: Not Given Albuterol/Ipratropium (Duoneb 3.0-0.5 Mg/3 Ml) 3 ml NEB Q4HRRT PRN PRN Reason: Wheezing Epinephrine HCl (Adrenalin) 1 mg .ROUTE .STK-MED ONE Stop: 04/06/19 00:01 Glycopyrrolate (Seebri Neohaler) 0 mcg IH BIDRT [facility] Dextrose/Lactated Ringer's (Dextrose 5%-Lactated Ringers) 1,000 mls @ 999 mls/ hr IV ASDIRECTED [facility] Last Admin: 04/06/19 09:54 Dose: 999 mls/hr Sodium Chloride (Normal Saline) 1,000 mls @ 150 mls/hr IV ASDIRECTED [facility] Last Admin: 04/07/19 02:04 Dose: 150 mls/hr Magnesium Sulfate/Dextrose 1 (gm/ Premix) 100 mls @ 100 mls/hr IV ONETIME ONE Stop: 04/06/19 14:59 Last Admin: 04/06/19 14:48 Dose: 100 mls/hr Azithromycin 250 mg/ Sodium (Chloride) 250 mls @ 250 mls/hr IV Q24H [facility] Last Admin: 04/07/19 15:19 Dose: 250 mls/hr Sodium Chloride (Normal Saline) 1,000 mls @ 15 mls/hr IV ASDIRECTED [facility] Stop: 04/11/19 07:22 Labetalol HCl (Normodyne) Confirm Administered Dose 100 mg .ROUTE .STK-MED ONE Stop: 04/06/19 10:04 Last Admin: 04/06/19 10:04 Dose: 10 mg Labetalol HCl (Normodyne) 100 mg .ROUTE .STK-MED ONE Stop: 04/06/19 00:01 Lidocaine HCl (Xylocaine 1%) 10 ml .ROUTE .STK-MED ONE Stop: 04/06/19 00:01 Lorazepam (Ativan) Confirm Administered Dose 2 mg .ROUTE .STK-MED ONE Stop: 04/06/19 12:30 Last Admin: 04/06/19 12:40 Dose: Not Given Lorazepam (Ativan) 1 mg IV ONETIME ONE Stop: 04/06/19 12:36 Last Admin: 04/06/19 12:36 Dose: 1 mg Methylprednisolone Sodium Succinate (Solu-Medrol) 125 mg IVPUSH ONETIME ONE Stop: 04/06/19 09:55 Last Admin: 04/06/19 09:54 Dose: 125 mg Methylprednisolone Sodium Succinate (Solu-Medrol) Confirm Administered Dose 125 mg .ROUTE .STK-MED ONE Stop: 04/06/19 09:52 Last Admin: 04/06/19 12:39 Dose: Not Given Methylprednisolone Sodium Succinate (Solu-Medrol) 125 mg IVPUSH Q8H [facility] Last Admin: 04/08/19 10:03 Dose: 125 mg Methylprednisolone Sodium Succinate (Solu-Medrol) 125 mg .ROUTE .STK-MED ONE Stop: 04/06/19 00:01 Midazolam HCl (Versed 1 Mg/Ml) 5 mg .ROUTE .STK-MED ONE Stop: 04/06/19 00:01 Midazolam HCl (Versed 1 Mg/Ml) 5 mg .ROUTE .STK-MED ONE Stop: 04/06/19 00:01 Morphine Sulfate (Morphine) 1 mg IVPUSH Q2H PRN PRN Reason: Pain (severe 7-10) Stop: 04/07/19 14:02 Last Admin: 04/07/19 06:42 Dose: 1 mg Pantoprazole Sodium (Protonix Iv) 40 mg IV Q12HR [facility] Last Admin: 04/08/19 08:23 Dose: 40 mg - Exam Quality Assessment: Supplemental Oxygen (1.5 L via nasal cannula), Urine Catheter General: Alert, Oriented, Cooperative, No Acute Distress HEENT: Pupils Equal, Pupils Reactive, EOMI, Mucous Membr. Moist/[place] Neck: Supple, Trachea Midline, No JVD. No: Lymphadenopathy Lungs: Decreased Breath Sounds, Wheezing. No: Crackles, Rales, Rhonchi Cardiovascular: Regular Rate, Regular Rhythm. No: No Murmurs, Murmurs, Gallops , Rubs GI/Abdominal Exam: Normal Bowel Sounds, Soft, Non-Tender, No Organomegaly, No Distention (Male) Exam: Deferred Back Exam: Normal Inspection, Full Range of Motion Extremities: Normal Inspection, Normal Range of Motion, Non-Tender, No Pedal Edema Skin: Warm, Dry, Intact Neurological: No New Focal Deficit, Normal Speech, Normal Tone Psy/Mental Status: Alert, Normal Affect, Normal Mood - Problem List Review Problem List Initiated/Reviewed/Updated: Yes - My Orders Last 24 Hours: My Active Orders 04/08/19 21:00 methylPREDNISolone Sod Succ [Solu-MEDROL] 125 mg IVPUSH BID - Plan Plan:: No overnight or acute issues. He is doing relatively well. He is currently on 1.5 L of O2 via nasal cannula, which is improved from his baseline of 2L. His repeat chest x-ray report read as left sided chest tube with no pneumothorax being seen. There are some increased interstitial changes which are not concerning due to his overwhelming clinical improvement. We will continue current treatment and cut down his steroid frequency. His roach catheter will be removed. Discharge pending removal of chest tube. The patient was seen and examined in concert with the medical student. The assessment and plans were discussed and agreed upon with me. <Irina Garcia T - Last Filed: 04/09/19 18:29> - General Info Subjective Update: No overnight or acute issues. he is now down to 1-1.5L on his supplemental O2 with minimal wheezes on auscultation. - Patient Data Vitals - Most Recent: Last Vital Signs Temp 36.6 C 04/09/19 11:52 Pulse 95 04/09/19 16:00 Resp 22 H 04/09/19 11:52 BP 125/79 04/09/19 11:52 Pulse Ox 94 L 04/09/19 16:00 I&O - Last 24 Hours: Intake & Output 04/09/19 04/09/19 04/09/19 06:59 14:59 22:59 Intake Total 400 420 Output Total 475 150 Balance -75 270 Imaging Impressions - Last 24 Hours: Chest x-ray shows stable left sided-chest tube and no pneumothorax seen. Lab Results Last 24 Hours: Laboratory Results - last 24 hr 04/09/19 04/09/19 Range/Units 04:45 04:45 WBC 19.16 H (4.23-9.07) K/mm3 RBC 4.53 L (4.63-6.08) M/mm3 Hgb 13.4 L (13.7-17.5) gm/L Hct 40.5 (40.1-51.0) % MCV 89.4 (79.0-92.2) fl MCH 29.6 (25.7-32.2) pg MCHC 33.1 (32.2-35.5) g/dl RDW Std Deviation 45.7 H (35.1-43.9) fL Plt Count 232 (163-337) K/mm3 MPV 11.0 (9.4-12.3) fl Neut % (Auto) 91.9 H (34.0-67.9) % Lymph % (Auto) 4.6 L (21.8-53.1) % [place] % (Auto) 3.2 L (5.3-12.2) % Eos % (Auto) 0 L (0.8-7.0) Baso % (Auto) 0.1 (0.1-1.2) % Neut # (Auto) 17.62 H (1.78-5.38) K/mm3 Lymph # (Auto) 0.88 L (1.32-3.57) K/mm3 [place] # (Auto) 0.62 (0.30-0.82) K/mm3 Eos # (Auto) 0.00 L (0.04-0.54) K/mm3 Baso # (Auto) 0.01 (0.01-0.08) K/mm3 Manual Slide Review Normal smear Sodium 140 (136-145) mEq/L Potassium 4.0 (3.5-5.1) mEq/L Chloride 102 (98-107) mEq/L Carbon Dioxide 28 (21-32) mEq/L Anion Gap 14.0 (5-15) BUN 23 H (7-18) mg/dL Creatinine 0.8 (0.7-1.3) mg/dL Est Cr Clr Drug Dosing 99.87 mL/min Estimated GFR (MDRD) > 60 (>60) mL/min BUN/Creatinine Ratio 28.8 H (14-18) Glucose 153 H (80-115) mg/dL Calcium 9.2 (8.5-10.1) mg/dL Magnesium 2.1 (1.8-2.4) mg/dl Phil Results Last 24 Hours: Microbiology 04/06/19 07:58 Gram Stain - Final Sputum - Expectorated Sputum Culture - Final Med Orders - Current: Current Medications Acetaminophen (Tylenol) 650 mg PO Q4H PRN PRN Reason: Pain (Mild 1-3)/fever Hydrocodone Bitart/Acetaminophen ([place] 325-5 Mg) 1 tab PO Q4H PRN PRN Reason: Pain (moderate 4-6) Last Admin: 04/08/19 12:21 Dose: 1 tab Albuterol (Proventil Hfa) 0 gm INH Q4H PRN PRN Reason: Shortness of Breath Albuterol/Ipratropium (Duoneb 3.0-0.5 Mg/3 Ml) 3 ml INH BIDRT [facility] Last Admin: 04/09/19 05:32 Dose: 3 ml Albuterol/Ipratropium (Duoneb 3.0-0.5 Mg/3 Ml) 3 ml NEB Q4HRRT PRN PRN Reason: Shortness of Breath Last Admin: 04/08/19 14:55 Dose: 3 ml Azithromycin (Zithromax) 250 mg PO Q24H [facility] Last Admin: 04/09/19 14:03 Dose: 250 mg Bisacodyl (Dulcolax) 5 mg PO DAILY PRN PRN Reason: Constipation Docusate Sodium (Colace) 100 mg PO BID PRN PRN Reason: Constipation Glycopyrrolate (Seebri Neohaler) 0 mcg IH BIDRT [facility] Last Admin: 04/09/19 05:32 Dose: 1 cap Guaifenesin/Phenylephrine HCl (Robitussin Dm) 10 ml PO Q4H PRN PRN Reason: Cough Hydromorphone HCl (Dilaudid) 0.25 mg IVPUSH Q2H PRN PRN Reason: Pain (severe 7-10) Promethazine HCl 6.25 mg/ (Sodium Chloride) 50.25 mls @ 100 mls/hr IV Q6H PRN PRN Reason: Nausea/Vomiting Lorazepam (Ativan) 1 mg IV Q6H PRN PRN Reason: Anxiety Magnesium Oxide (Magnesium Oxide) 400 mg PO BID [facility] Last Admin: 04/09/19 08:49 Dose: 400 mg Mometasone Furoate/Formoterol Fumar (Dulera 100-5 Mcg) 0 puff IH BIDRT [facility] Last Admin: 04/09/19 05:32 Dose: 2 puff Ondansetron HCl (Zofran) 4 mg IV Q6H PRN PRN Reason: Nausea/Vomiting Pantoprazole Sodium (Protonix) 40 mg PO BID [facility] Last Admin: 04/09/19 08:49 Dose: 40 mg Polyethylene Glycol (Miralax) 17 gm PO DAILY PRN PRN Reason: Constipation Prednisone (Prednisone) 40 mg PO WITHBREAKFAST [facility] Senna/Docusate Sodium (Senna Plus) 1 tab PO BID PRN PRN Reason: Constipation Sodium Chloride (Saline Flush) 10 ml FLUSH ASDIRECTED PRN PRN Reason: Keep Vein Open Last Admin: 04/06/19 12:39 Dose: 10 ml Temazepam (Restoril) 7.5 mg PO BEDTIME PRN PRN Reason: Sleep Discontinued Medications Albuterol/Ipratropium (Duoneb 3.0-0.5 Mg/3 Ml) 3 ml NEB ONETIME ONE Stop: 04/06/19 09:55 Last Admin: 04/06/19 14:31 Dose: 3 ml Albuterol/Ipratropium (Duoneb 3.0-0.5 Mg/3 Ml) Confirm Administered Dose 3 ml .ROUTE .STK-MED ONE Stop: 04/06/19 14:30 Last Admin: 04/06/19 15:07 Dose: Not Given Albuterol/Ipratropium (Duoneb 3.0-0.5 Mg/3 Ml) 3 ml NEB Q4HRRT PRN PRN Reason: Wheezing Epinephrine HCl (Adrenalin) 1 mg .ROUTE .STK-MED ONE Stop: 04/06/19 00:01 Glycopyrrolate (Seebri Neohaler) 0 mcg IH BIDRT [facility] Dextrose/Lactated Ringer's (Dextrose 5%-Lactated Ringers) 1,000 mls @ 999 mls/ hr IV ASDIRECTED [facility] Last Admin: 04/06/19 09:54 Dose: 999 mls/hr Sodium Chloride (Normal Saline) 1,000 mls @ 150 mls/hr IV ASDIRECTED [facility] Last Admin: 04/07/19 02:04 Dose: 150 mls/hr Magnesium Sulfate/Dextrose 1 (gm/ Premix) 100 mls @ 100 mls/hr IV ONETIME ONE Stop: 04/06/19 14:59 Last Admin: 04/06/19 14:48 Dose: 100 mls/hr Azithromycin 250 mg/ Sodium (Chloride) 250 mls @ 250 mls/hr IV Q24H [facility] Last Admin: 04/07/19 15:19 Dose: 250 mls/hr Sodium Chloride (Normal Saline) 1,000 mls @ 15 mls/hr IV ASDIRECTED [facility] Stop: 04/11/19 07:22 Labetalol HCl (Normodyne) Confirm Administered Dose 100 mg .ROUTE .STK-MED ONE Stop: 04/06/19 10:04 Last Admin: 04/06/19 10:04 Dose: 10 mg Labetalol HCl (Normodyne) 100 mg .ROUTE .STK-MED ONE Stop: 04/06/19 00:01 Lidocaine HCl (Xylocaine 1%) 10 ml .ROUTE .STK-MED ONE Stop: 04/06/19 00:01 Lorazepam (Ativan) Confirm Administered Dose 2 mg .ROUTE .STK-MED ONE Stop: 04/06/19 12:30 Last Admin: 04/06/19 12:40 Dose: Not Given Lorazepam (Ativan) 1 mg IV ONETIME ONE Stop: 04/06/19 12:36 Last Admin: 04/06/19 12:36 Dose: 1 mg Methylprednisolone Sodium Succinate (Solu-Medrol) 125 mg IVPUSH ONETIME ONE Stop: 04/06/19 09:55 Last Admin: 04/06/19 09:54 Dose: 125 mg Methylprednisolone Sodium Succinate (Solu-Medrol) Confirm Administered Dose 125 mg .ROUTE .STK-MED ONE Stop: 04/06/19 09:52 Last Admin: 04/06/19 12:39 Dose: Not Given Methylprednisolone Sodium Succinate (Solu-Medrol) 125 mg IVPUSH Q8H [facility] Last Admin: 04/08/19 10:03 Dose: 125 mg Methylprednisolone Sodium Succinate (Solu-Medrol) 125 mg .ROUTE .STK-MED ONE Stop: 04/06/19 00:01 Methylprednisolone Sodium Succinate (Solu-Medrol) 125 mg IVPUSH BID [facility] Last Admin: 04/09/19 08:48 Dose: 125 mg Midazolam HCl (Versed 1 Mg/Ml) 5 mg .ROUTE .STK-MED ONE Stop: 04/06/19 00:01 Midazolam HCl (Versed 1 Mg/Ml) 5 mg .ROUTE .STK-MED ONE Stop: 04/06/19 00:01 Morphine Sulfate (Morphine) 1 mg IVPUSH Q2H PRN PRN Reason: Pain (severe 7-10) Stop: 04/07/19 14:02 Last Admin: 04/07/19 06:42 Dose: 1 mg Pantoprazole Sodium (Protonix Iv) 40 mg IV Q12HR [facility] Last Admin: 04/08/19 08:23 Dose: 40 mg - Exam Lungs: Wheezing (minimal) - Problem List Review Problem List Initiated/Reviewed/Updated: Yes - My Orders Last 24 Hours: My Active Orders 04/08/19 21:00 Pantoprazole [ProTONIX] 40 mg PO BID 04/09/19 07:10 DC Roach Catheter [Urinary Catheter Removal] [RC] Per Unit Routine 04/10/19 05:11 BASIC METABOLIC PANEL,BMP [CHEM] AM CBC WITH AUTO DIFF [HEME] AM MAGNESIUM [CHEM] AM 04/10/19 07:00 Chest 1V Frontal [CR] DAILY 04/10/19 09:00 predniSONE 40 mg PO WITHBREAKFAST 04/11/19 05:11 BASIC METABOLIC PANEL,BMP [CHEM] AM CBC WITH AUTO DIFF [HEME] AM MAGNESIUM [CHEM] AM 04/11/19 07:00 Chest 1V Frontal [CR] DAILY - Plan Plan:: Discontinue accu-check and change intravenous steroid to oral dosing.
--- NOTE | 2019-04-09 11:07 | PN ---
DATE OF SERVICE: 04/09/2019 SUBJECTIVE: The patient is feeling much better. His O2 requirements are decreased. He is now down to 1 L nasal cannula. Sitting up in the bed when I visited with him this morning. OBJECTIVE: VITAL SIGNS: Temperature 98.1, pulse 100, respirations 22, blood pressure 139/73, and saturating 96% on 1 L nasal cannula. CHEST: Clear. I cannot appreciate the air leak, which I appreciated yesterday on his auscultation. I interrogated the chest tube. There is no evidence of an air leak currently. He is off suction, just on 20 cm of water seal. ASSESSMENT: Emphysema, status post tension pneumothorax with a chest tube in place. It seems the leak has sealed. PLAN: I have clamped the tube. We will reassess his chest x-ray tomorrow. If he shows no evidence of a pneumothorax with the tube on clamp overnight, I will just simply pull the tube. MMODAL /[id number]
[2019-04-09] MEDS: Azithromycin 250 MG Tab PO SCH (14:03)
[2019-04-10] MEDS: Glycopyrrolate 15.6 MCG Cap.W.Dev Kit of 6 IH SCH (05:37)
[2019-04-10] MEDS: Albuterol/Ipratropium 3.0-0.5 MG/3 ML Neb Soln INH SCH (05:37)
[2019-04-10] MEDS: Formoterol/Mometasone 100-5 MCG 8.8 GM Inhaler IH SCH (05:37)
--- NOTE | 2019-04-10 08:17 | CR ---
Chest: Portable view of the chest was obtained. Comparison: Prior chest x-ray of 04/09/19. Heart size is normal. Upper mediastinum is within normal limits. Left-sided chest tube is seen. Slight increased atelectasis is noted within the left lung. No pneumothorax is appreciated. Previously noted increased interstitial change remains stable within the left mid and lower lung. Impression: 1. Mild increased atelectasis within the left lung from prior chest x-ray. 2. Chest x-ray is otherwise stable from most recent study. 3. Chest tube remains with no evidence of pneumothorax seen on this study. Diagnostic code #3
[2019-04-10] MEDS: Magnesium Oxide 400 MG Tab PO SCH (08:32)
[2019-04-10] MEDS: Pantoprazole 40 MG Tab.CR PO SCH (08:33)
[2019-04-10] MEDS: Acetaminophen/HYDROcodone 325-5 MG Tab PO PRN (08:39)
[2019-04-10] MEDS ORDERED: predniSONE 20 MG Tab PO SCH (09:00)
--- NOTE | 2019-04-10 09:58 | PCM.PN ---
<Warner Doran - Last Filed: 04/10/19 09:51> - General Info Date of Service: 04/10/19 Admission Dx/Problem (Free Text): Admission Diagnosis/Problem Admission Diagnosis/Problem Pneumothorax on left Subjective Update: Patient is sitting in bed during rounds today. Patient states he is feeling well today. He slept well last night. He has no complaints at this time. Functional Status: Reports: Pain Controlled - Review of Systems General: Reports: No Symptoms HEENT: Reports: No Symptoms Pulmonary: Reports: Shortness of Breath Cardiovascular: Reports: No Symptoms Gastrointestinal: Reports: No Symptoms Genitourinary: Reports: No Symptoms Musculoskeletal: Reports: No Symptoms Skin: Reports: No Symptoms Neurological: Reports: No Symptoms Psychiatric: Reports: No Symptoms - Patient Data Vitals - Most Recent: Last Vital Signs Temp 97.8 F 04/10/19 08:00 Pulse 91 04/10/19 04:00 Resp 20 04/10/19 08:00 BP 140/73 04/10/19 08:00 Pulse Ox 95 04/10/19 08:00 Weight - Most Recent: 72.121 kg I&O - Last 24 Hours: Intake & Output 04/09/19 04/10/19 04/10/19 22:59 06:59 14:59 Intake Total 340 200 Output Total 250 300 Balance 90 200 -300 Lab Results Last 24 Hours: Laboratory Results - last 24 hr 04/10/19 04/10/19 Range/Units 04:25 04:25 WBC 17.37 H (4.23-9.07) K/mm3 RBC 4.61 L (4.63-6.08) M/mm3 Hgb 13.4 L (13.7-17.5) gm/L Hct 41.0 (40.1-51.0) % MCV 88.9 (79.0-92.2) fl MCH 29.1 (25.7-32.2) pg MCHC 32.7 (32.2-35.5) g/dl RDW Std Deviation 45.5 H (35.1-43.9) fL Plt Count 229 (163-337) K/mm3 MPV 11.0 (9.4-12.3) fl Neut % (Auto) 86.2 H (34.0-67.9) % Lymph % (Auto) 6.9 L (21.8-53.1) % [place] % (Auto) 6.6 (5.3-12.2) % Eos % (Auto) 0 L (0.8-7.0) Baso % (Auto) 0.0 L (0.1-1.2) % Neut # (Auto) 14.97 H (1.78-5.38) K/mm3 Lymph # (Auto) 1.20 L (1.32-3.57) K/mm3 [place] # (Auto) 1.14 H (0.30-0.82) K/mm3 Eos # (Auto) 0.00 L (0.04-0.54) K/mm3 Baso # (Auto) 0.00 L (0.01-0.08) K/mm3 Manual Slide Review Abnormal smear Sodium 139 (136-145) mEq/L Potassium 4.0 (3.5-5.1) mEq/L Chloride 103 (98-107) mEq/L Carbon Dioxide 29 (21-32) mEq/L Anion Gap 11.0 (5-15) BUN 24 H (7-18) mg/dL Creatinine 0.8 (0.7-1.3) mg/dL Est Cr Clr Drug Dosing 96.41 mL/min Estimated GFR (MDRD) > 60 (>60) mL/min BUN/Creatinine Ratio 30.0 H (14-18) Glucose 138 H (80-115) mg/dL Calcium 9.0 (8.5-10.1) mg/dL Magnesium 2.2 (1.8-2.4) mg/dl Phil Results Last 24 Hours: Microbiology 04/06/19 07:58 Gram Stain - Final Sputum - Expectorated Sputum Culture - Final Med Orders - Current: Current Medications Acetaminophen (Tylenol) 650 mg PO Q4H PRN PRN Reason: Pain (Mild 1-3)/fever Hydrocodone Bitart/Acetaminophen ([place] 325-5 Mg) 1 tab PO Q4H PRN PRN Reason: Pain (moderate 4-6) Last Admin: 04/10/19 08:39 Dose: 1 tab Albuterol (Proventil Hfa) 0 gm INH Q4H PRN PRN Reason: Shortness of Breath Albuterol/Ipratropium (Duoneb 3.0-0.5 Mg/3 Ml) 3 ml INH BIDRT [facility] Last Admin: 04/10/19 05:37 Dose: 3 ml Albuterol/Ipratropium (Duoneb 3.0-0.5 Mg/3 Ml) 3 ml NEB Q4HRRT PRN PRN Reason: Shortness of Breath Last Admin: 04/08/19 14:55 Dose: 3 ml Azithromycin (Zithromax) 250 mg PO Q24H [facility] Last Admin: 04/09/19 14:03 Dose: 250 mg Bisacodyl (Dulcolax) 5 mg PO DAILY PRN PRN Reason: Constipation Docusate Sodium (Colace) 100 mg PO BID PRN PRN Reason: Constipation Glycopyrrolate (Seebri Neohaler) 0 mcg IH BIDRT [facility] Last Admin: 04/10/19 05:37 Dose: 1 cap Guaifenesin/Phenylephrine HCl (Robitussin Dm) 10 ml PO Q4H PRN PRN Reason: Cough Hydromorphone HCl (Dilaudid) 0.25 mg IVPUSH Q2H PRN PRN Reason: Pain (severe 7-10) Promethazine HCl 6.25 mg/ (Sodium Chloride) 50.25 mls @ 100 mls/hr IV Q6H PRN PRN Reason: Nausea/Vomiting Lorazepam (Ativan) 1 mg IV Q6H PRN PRN Reason: Anxiety Magnesium Oxide (Magnesium Oxide) 400 mg PO BID [facility] Last Admin: 04/10/19 08:32 Dose: 400 mg Mometasone Furoate/Formoterol Fumar (Dulera 100-5 Mcg) 0 puff IH BIDRT [facility] Last Admin: 04/10/19 05:37 Dose: 2 puff Ondansetron HCl (Zofran) 4 mg IV Q6H PRN PRN Reason: Nausea/Vomiting Pantoprazole Sodium (Protonix) 40 mg PO BID [facility] Last Admin: 04/10/19 08:33 Dose: 40 mg Polyethylene Glycol (Miralax) 17 gm PO DAILY PRN PRN Reason: Constipation Prednisone (Prednisone) 40 mg PO WITHBREAKFAST [facility] Last Admin: 04/10/19 08:32 Dose: 40 mg Senna/Docusate Sodium (Senna Plus) 1 tab PO BID PRN PRN Reason: Constipation Sodium Chloride (Saline Flush) 10 ml FLUSH ASDIRECTED PRN PRN Reason: Keep Vein Open Last Admin: 04/06/19 12:39 Dose: 10 ml Temazepam (Restoril) 7.5 mg PO BEDTIME PRN PRN Reason: Sleep Discontinued Medications Albuterol/Ipratropium (Duoneb 3.0-0.5 Mg/3 Ml) 3 ml NEB ONETIME ONE Stop: 04/06/19 09:55 Last Admin: 04/06/19 14:31 Dose: 3 ml Albuterol/Ipratropium (Duoneb 3.0-0.5 Mg/3 Ml) Confirm Administered Dose 3 ml .ROUTE .STK-MED ONE Stop: 04/06/19 14:30 Last Admin: 04/06/19 15:07 Dose: Not Given Albuterol/Ipratropium (Duoneb 3.0-0.5 Mg/3 Ml) 3 ml NEB Q4HRRT PRN PRN Reason: Wheezing Epinephrine HCl (Adrenalin) 1 mg .ROUTE .STK-MED ONE Stop: 04/06/19 00:01 Glycopyrrolate (Seebri Neohaler) 0 mcg IH BIDRT [facility] Dextrose/Lactated Ringer's (Dextrose 5%-Lactated Ringers) 1,000 mls @ 999 mls/ hr IV ASDIRECTED [facility] Last Admin: 04/06/19 09:54 Dose: 999 mls/hr Sodium Chloride (Normal Saline) 1,000 mls @ 150 mls/hr IV ASDIRECTED [facility] Last Admin: 04/07/19 02:04 Dose: 150 mls/hr Magnesium Sulfate/Dextrose 1 (gm/ Premix) 100 mls @ 100 mls/hr IV ONETIME ONE Stop: 04/06/19 14:59 Last Admin: 04/06/19 14:48 Dose: 100 mls/hr Azithromycin 250 mg/ Sodium (Chloride) 250 mls @ 250 mls/hr IV Q24H [facility] Last Admin: 04/07/19 15:19 Dose: 250 mls/hr Sodium Chloride (Normal Saline) 1,000 mls @ 15 mls/hr IV ASDIRECTED [facility] Stop: 04/11/19 07:22 Labetalol HCl (Normodyne) Confirm Administered Dose 100 mg .ROUTE .STK-MED ONE Stop: 04/06/19 10:04 Last Admin: 04/06/19 10:04 Dose: 10 mg Labetalol HCl (Normodyne) 100 mg .ROUTE .STK-MED ONE Stop: 04/06/19 00:01 Lidocaine HCl (Xylocaine 1%) 10 ml .ROUTE .STK-MED ONE Stop: 04/06/19 00:01 Lorazepam (Ativan) Confirm Administered Dose 2 mg .ROUTE .STK-MED ONE Stop: 04/06/19 12:30 Last Admin: 04/06/19 12:40 Dose: Not Given Lorazepam (Ativan) 1 mg IV ONETIME ONE Stop: 04/06/19 12:36 Last Admin: 04/06/19 12:36 Dose: 1 mg Methylprednisolone Sodium Succinate (Solu-Medrol) 125 mg IVPUSH ONETIME ONE Stop: 04/06/19 09:55 Last Admin: 04/06/19 09:54 Dose: 125 mg Methylprednisolone Sodium Succinate (Solu-Medrol) Confirm Administered Dose 125 mg .ROUTE .STK-MED ONE Stop: 04/06/19 09:52 Last Admin: 04/06/19 12:39 Dose: Not Given Methylprednisolone Sodium Succinate (Solu-Medrol) 125 mg IVPUSH Q8H [facility] Last Admin: 04/08/19 10:03 Dose: 125 mg Methylprednisolone Sodium Succinate (Solu-Medrol) 125 mg .ROUTE .STK-MED ONE Stop: 04/06/19 00:01 Methylprednisolone Sodium Succinate (Solu-Medrol) 125 mg IVPUSH BID [facility] Last Admin: 04/09/19 08:48 Dose: 125 mg Midazolam HCl (Versed 1 Mg/Ml) 5 mg .ROUTE .STK-MED ONE Stop: 04/06/19 00:01 Midazolam HCl (Versed 1 Mg/Ml) 5 mg .ROUTE .STK-MED ONE Stop: 04/06/19 00:01 Morphine Sulfate (Morphine) 1 mg IVPUSH Q2H PRN PRN Reason: Pain (severe 7-10) Stop: 04/07/19 14:02 Last Admin: 04/07/19 06:42 Dose: 1 mg Pantoprazole Sodium (Protonix Iv) 40 mg IV Q12HR [facility] Last Admin: 04/08/19 08:23 Dose: 40 mg - Exam Quality Assessment: Supplemental Oxygen General: Alert, Oriented, Cooperative, No Acute Distress HEENT: Pupils Equal, Pupils Reactive, EOMI, Mucous Membr. Moist/[place] Neck: Supple, Trachea Midline, No JVD. No: Lymphadenopathy, Carotid Bruit Lungs: Decreased Breath Sounds. No: Crackles, Rales, Rhonchi, Stridor, Wheezing Cardiovascular: Regular Rhythm, No Murmurs, Tachycardia. No: Murmurs, Gallops, Rubs GI/Abdominal Exam: Normal Bowel Sounds, Soft, Non-Tender, No Organomegaly, No Distention (Male) Exam: Deferred Back Exam: Normal Inspection, Full Range of Motion ( ) Extremities: Normal Inspection, Normal Range of Motion, Non-Tender, No Pedal Edema. No: Joint Swelling Skin: Warm, Dry, Intact. No: Rash, Ecchymosis Neurological: No New Focal Deficit, Normal Gait, Normal Speech, Normal Tone, Cranial Nerves Intact Psy/Mental Status: Alert, Normal Affect, Normal Mood - Problem List Review Problem List Initiated/Reviewed/Updated: Yes - Plan Plan:: Discontinue accu-check and change intravenous steroid to oral dosing. downgrade to med/surg status after chest tube removal, and hopefully D/C tomorrow pending PT/OT evaluation of activity. <Irina Garcia T - Last Filed: 04/10/19 18:47> - Patient Data Vitals - Most Recent: Last Vital Signs Temp 36.7 C 04/10/19 16:00 Pulse 92 04/10/19 13:00 Resp 24 H 04/10/19 16:00 BP 158/94 H 04/10/19 16:00 Pulse Ox 97 04/10/19 17:12 I&O - Last 24 Hours: Intake & Output 04/10/19 04/10/19 04/10/19 06:59 14:59 22:59 Intake Total 200 180 400 Output Total 700 Balance 200 -520 400 Lab Results Last 24 Hours: Laboratory Results - last 24 hr 04/10/19 04/10/19 Range/Units 04:25 04:25 WBC 17.37 H (4.23-9.07) K/mm3 RBC 4.61 L (4.63-6.08) M/mm3 Hgb 13.4 L (13.7-17.5) gm/L Hct 41.0 (40.1-51.0) % MCV 88.9 (79.0-92.2) fl MCH 29.1 (25.7-32.2) pg MCHC 32.7 (32.2-35.5) g/dl RDW Std Deviation 45.5 H (35.1-43.9) fL Plt Count 229 (163-337) K/mm3 MPV 11.0 (9.4-12.3) fl Neut % (Auto) 86.2 H (34.0-67.9) % Lymph % (Auto) 6.9 L (21.8-53.1) % [place] % (Auto) 6.6 (5.3-12.2) % Eos % (Auto) 0 L (0.8-7.0) Baso % (Auto) 0.0 L (0.1-1.2) % Neut # (Auto) 14.97 H (1.78-5.38) K/mm3 Lymph # (Auto) 1.20 L (1.32-3.57) K/mm3 [place] # (Auto) 1.14 H (0.30-0.82) K/mm3 Eos # (Auto) 0.00 L (0.04-0.54) K/mm3 Baso # (Auto) 0.00 L (0.01-0.08) K/mm3 Manual Slide Review Abnormal smear Sodium 139 (136-145) mEq/L Potassium 4.0 (3.5-5.1) mEq/L Chloride 103 (98-107) mEq/L Carbon Dioxide 29 (21-32) mEq/L Anion Gap 11.0 (5-15) BUN 24 H (7-18) mg/dL Creatinine 0.8 (0.7-1.3) mg/dL Est Cr Clr Drug Dosing 96.41 mL/min Estimated GFR (MDRD) > 60 (>60) mL/min BUN/Creatinine Ratio 30.0 H (14-18) Glucose 138 H (80-115) mg/dL Calcium 9.0 (8.5-10.1) mg/dL Magnesium 2.2 (1.8-2.4) mg/dl Med Orders - Current: Current Medications Acetaminophen (Tylenol) 650 mg PO Q4H PRN PRN Reason: Pain (Mild 1-3)/fever Hydrocodone Bitart/Acetaminophen ([place] 325-5 Mg) 1 tab PO Q4H PRN PRN Reason: Pain (moderate 4-6) Last Admin: 04/10/19 08:39 Dose: 1 tab Albuterol (Proventil Hfa) 0 gm INH Q4H PRN PRN Reason: Shortness of Breath Albuterol/Ipratropium (Duoneb 3.0-0.5 Mg/3 Ml) 3 ml INH BIDRT [facility] Last Admin: 04/10/19 05:37 Dose: 3 ml Albuterol/Ipratropium (Duoneb 3.0-0.5 Mg/3 Ml) 3 ml NEB Q4HRRT PRN PRN Reason: Shortness of Breath Last Admin: 04/10/19 17:12 Dose: 3 ml Azithromycin (Zithromax) 250 mg PO Q24H [facility] Last Admin: 04/10/19 15:29 Dose: 250 mg Bisacodyl (Dulcolax) 5 mg PO DAILY PRN PRN Reason: Constipation Docusate Sodium (Colace) 100 mg PO BID PRN PRN Reason: Constipation Glycopyrrolate (Seebri Neohaler) 0 mcg IH BIDRT [facility] Last Admin: 04/10/19 05:37 Dose: 1 cap Guaifenesin/Phenylephrine HCl (Robitussin Dm) 10 ml PO Q4H PRN PRN Reason: Cough Hydromorphone HCl (Dilaudid) 0.25 mg IVPUSH Q2H PRN PRN Reason: Pain (severe 7-10) Promethazine HCl 6.25 mg/ (Sodium Chloride) 50.25 mls @ 100 mls/hr IV Q6H PRN PRN Reason: Nausea/Vomiting Lorazepam (Ativan) 1 mg IV Q6H PRN PRN Reason: Anxiety Magnesium Oxide (Magnesium Oxide) 400 mg PO BID [facility] Last Admin: 04/10/19 08:32 Dose: 400 mg Mometasone Furoate/Formoterol Fumar (Dulera 100-5 Mcg) 0 puff IH BIDRT [facility] Last Admin: 04/10/19 05:37 Dose: 2 puff Ondansetron HCl (Zofran) 4 mg IV Q6H PRN PRN Reason: Nausea/Vomiting Pantoprazole Sodium (Protonix) 40 mg PO BID [facility] Last Admin: 04/10/19 08:33 Dose: 40 mg Polyethylene Glycol (Miralax) 17 gm PO DAILY PRN PRN Reason: Constipation Prednisone (Prednisone) 40 mg PO WITHBREAKFAST [facility] Last Admin: 04/10/19 08:32 Dose: 40 mg Senna/Docusate Sodium (Senna Plus) 1 tab PO BID PRN PRN Reason: Constipation Sodium Chloride (Saline Flush) 10 ml FLUSH ASDIRECTED PRN PRN Reason: Keep Vein Open Last Admin: 04/06/19 12:39 Dose: 10 ml Temazepam (Restoril) 7.5 mg PO BEDTIME PRN PRN Reason: Sleep Discontinued Medications Albuterol/Ipratropium (Duoneb 3.0-0.5 Mg/3 Ml) 3 ml NEB ONETIME ONE Stop: 04/06/19 09:55 Last Admin: 04/06/19 14:31 Dose: 3 ml Albuterol/Ipratropium (Duoneb 3.0-0.5 Mg/3 Ml) Confirm Administered Dose 3 ml .ROUTE .STK-MED ONE Stop: 04/06/19 14:30 Last Admin: 04/06/19 15:07 Dose: Not Given Albuterol/Ipratropium (Duoneb 3.0-0.5 Mg/3 Ml) 3 ml NEB Q4HRRT PRN PRN Reason: Wheezing Epinephrine HCl (Adrenalin) 1 mg .ROUTE .STK-MED ONE Stop: 04/06/19 00:01 Glycopyrrolate (Seebri Neohaler) 0 mcg IH BIDRT [facility] Dextrose/Lactated Ringer's (Dextrose 5%-Lactated Ringers) 1,000 mls @ 999 mls/ hr IV ASDIRECTED [facility] Last Admin: 04/06/19 09:54 Dose: 999 mls/hr Sodium Chloride (Normal Saline) 1,000 mls @ 150 mls/hr IV ASDIRECTED [facility] Last Admin: 04/07/19 02:04 Dose: 150 mls/hr Magnesium Sulfate/Dextrose 1 (gm/ Premix) 100 mls @ 100 mls/hr IV ONETIME ONE Stop: 04/06/19 14:59 Last Admin: 04/06/19 14:48 Dose: 100 mls/hr Azithromycin 250 mg/ Sodium (Chloride) 250 mls @ 250 mls/hr IV Q24H [facility] Last Admin: 04/07/19 15:19 Dose: 250 mls/hr Sodium Chloride (Normal Saline) 1,000 mls @ 15 mls/hr IV ASDIRECTED [facility] Stop: 04/11/19 07:22 Labetalol HCl (Normodyne) Confirm Administered Dose 100 mg .ROUTE .STK-MED ONE Stop: 04/06/19 10:04 Last Admin: 04/06/19 10:04 Dose: 10 mg Labetalol HCl (Normodyne) 100 mg .ROUTE .STK-MED ONE Stop: 04/06/19 00:01 Lidocaine HCl (Xylocaine 1%) 10 ml .ROUTE .STK-MED ONE Stop: 04/06/19 00:01 Lorazepam (Ativan) Confirm Administered Dose 2 mg .ROUTE .STK-MED ONE Stop: 04/06/19 12:30 Last Admin: 04/06/19 12:40 Dose: Not Given Lorazepam (Ativan) 1 mg IV ONETIME ONE Stop: 04/06/19 12:36 Last Admin: 04/06/19 12:36 Dose: 1 mg Methylprednisolone Sodium Succinate (Solu-Medrol) 125 mg IVPUSH ONETIME ONE Stop: 04/06/19 09:55 Last Admin: 04/06/19 09:54 Dose: 125 mg Methylprednisolone Sodium Succinate (Solu-Medrol) Confirm Administered Dose 125 mg .ROUTE .STK-MED ONE Stop: 04/06/19 09:52 Last Admin: 04/06/19 12:39 Dose: Not Given Methylprednisolone Sodium Succinate (Solu-Medrol) 125 mg IVPUSH Q8H [facility] Last Admin: 04/08/19 10:03 Dose: 125 mg Methylprednisolone Sodium Succinate (Solu-Medrol) 125 mg .ROUTE .STK-MED ONE Stop: 04/06/19 00:01 Methylprednisolone Sodium Succinate (Solu-Medrol) 125 mg IVPUSH BID [facility] Last Admin: 04/09/19 08:48 Dose: 125 mg Midazolam HCl (Versed 1 Mg/Ml) 5 mg .ROUTE .STK-MED ONE Stop: 04/06/19 00:01 Midazolam HCl (Versed 1 Mg/Ml) 5 mg .ROUTE .STK-MED ONE Stop: 04/06/19 00:01 Morphine Sulfate (Morphine) 1 mg IVPUSH Q2H PRN PRN Reason: Pain (severe 7-10) Stop: 04/07/19 14:02 Last Admin: 04/07/19 06:42 Dose: 1 mg Pantoprazole Sodium (Protonix Iv) 40 mg IV Q12HR [facility] Last Admin: 04/08/19 08:23 Dose: 40 mg - Problem List & Annotations (1) Spontaneous tension pneumothorax SNOMED Code(s): 814835513 Code(s): J93.0 - SPONTANEOUS TENSION PNEUMOTHORAX Status: Resolved Current Visit: Yes (2) COPD (chronic obstructive pulmonary disease) SNOMED Code(s): 99358641 Code(s): J44.9 - CHRONIC OBSTRUCTIVE PULMONARY DISEASE, UNSPECIFIED Status : Resolved Current Visit: Yes Qualifiers: COPD type: COPD with acute exacerbation Qualified Code(s): J44.1 - Chronic obstructive pulmonary disease with (acute) exacerbation (3) Respiratory failure SNOMED Code(s): 132244029 Code(s): J96.90 - RESPIRATORY FAILURE, UNSP, UNSP W HYPOXIA OR HYPERCAPNIA Status: Resolved Current Visit: Yes Qualifiers: Chronicity: acute Respiratory failure complication: hypoxia and hypercapnia Qualified Code(s): J96.01 - Acute respiratory failure with hypoxia ; J96.02 - Acute respiratory failure with hypercapnia - Problem List Review Problem List Initiated/Reviewed/Updated: Yes - My Orders Last 24 Hours: My Active Orders 04/10/19 09:00 predniSONE 40 mg PO WITHBREAKFAST 04/10/19 10:11 Admission Status [Patient Status] [ADT] Routine 04/10/19 17:46 Ready for Discharge [RC] PER UNIT ROUTINE 04/11/19 05:11 BASIC METABOLIC PANEL,BMP [CHEM] AM CBC WITH AUTO DIFF [HEME] AM MAGNESIUM [CHEM] AM 04/11/19 07:00 Chest 1V Frontal [CR] DAILY - Plan Plan:: Patient continues to do well. His chest x-ray shows no pneumothorax and he has been doing relatively well since chest tube was removed this morning. We have him do PT/OT and pulmonary exercise. If repeat chest x-ray remains stable this evening, expect discharge. The patient was seen and examined at bedside in concert with the medical student. The assessment and plans were discussed and agreed upon with me.
--- NOTE | 2019-04-10 11:08 | PN ---
DATE OF SERVICE: 04/10/2019 I placed his chest tube on clamp yesterday. He has had no shortness of breath. No increased oxygen demand. His chest x-ray this morning showed no evidence of a pneumothorax. At this point, it is clear the lung has sealed. I removed the chest tube at the bedside and placed a sterile petroleum gauze dressing and secured in place over the thoracostomy. I have instructed him to leave the dressing in place for 3 days. After that, he can replace it with a Band-Aid. He has [address] Those can come out either in my office or he can remove them himself in 10 days or so. I have also spoken to him about lung transplant. There is no reason he could not push through with a lung transplant and may give him another decade of life. He expressed his understanding. I did caution him that he may pop another bleb which would put him in the same position he is currently in if he survives. MAURIZIO /[id number] FELY
[2019-04-10] MEDS: Azithromycin 250 MG Tab PO SCH (15:29)
[2019-04-10] MEDS: Albuterol/Ipratropium 3.0-0.5 MG/3 ML Neb Soln NEB PRN (17:12)
--- NOTE | 2019-04-10 17:47 | PCM.DCSUM1 ---
Discharge Summary - Hospital Course HPI Initial Comments: This is a 64 yo white male with past medical hx/o Advanced COPD and Hx/o Smoking who presents to ED via ambulance in respiratory distress that happened at rest. He carries a hx/o advanced pulmonary insufficiency and is chronically short of air with baseline 2L NC at night and at rest during the day. His last known well was last night but this morning he suddenly developed dyspnea. His family checked his O2 sat via pulse oximeter and he was found sating in the 60s. His family states he was choking and looked like turning blue. Patient was on 15L NRM upon presentation to ED but then immediately switched to BIPAP. However he was found with a large left sided pneumothorax on chest x-ray. Urgent needle decompression was performed and a chest tube was put in on his left flank for further management. He received bronchodilators, steroids and epinephrine prior to transfer to the unit. His initial work up in ED shows a CBC remarkable for WBC of 16.67, MCHC of 31.8 , RDW of 46.1, Neutrophils of 28.4%, Lymphocytes # of 10.02, Monocyte # of 1.17 , Eosinophils # of 0.55, and Basophils # of 0.17. His chemistry shows BS of 274 , and Total Bilirubin of 1.1. Patient is coming in for further management of spontaneous pneumothorax status post chest tube placement. Diagnosis: Stroke: No Modified [place] Scale: No Symptoms at All Modified [place] Scale Score: 0 - Discharge Data Discharge Date: 04/10/19 Discharge Disposition: Home, Self-Care 01 Condition: Good - Discharge Diagnosis/Problem(s) (1) Spontaneous tension pneumothorax SNOMED Code(s): 097599742 ICD Code: J93.0 - SPONTANEOUS TENSION PNEUMOTHORAX Status: Resolved (2) COPD (chronic obstructive pulmonary disease) SNOMED Code(s): 33102266 ICD Code: J44.9 - CHRONIC OBSTRUCTIVE PULMONARY DISEASE, UNSPECIFIED Status : Resolved Qualifiers: COPD type: COPD with acute exacerbation Qualified Code(s): J44.1 - Chronic obstructive pulmonary disease with (acute) exacerbation (3) Respiratory failure SNOMED Code(s): 615630224 ICD Code: J96.90 - RESPIRATORY FAILURE, UNSP, UNSP W HYPOXIA OR HYPERCAPNIA Status: Resolved Qualifiers: Chronicity: acute Respiratory failure complication: hypoxia and hypercapnia Qualified Code(s): J96.01 - Acute respiratory failure with hypoxia ; J96.02 - Acute respiratory failure with hypercapnia - Patient Summary/Data Operative Procedure(s) Performed: Needle Decompression and Status Post Chest Tube Placement Complications: None Consults: Consultations 04/06/19 14:01 Consult to Case Management/Fitter Hand [CONS] Routine Consult to Spiritual Care [CONS] Routine OT Evaluation and Treatment [CONS] Routine PT Evaluation and Treatment [CONS] Routine Respiratory Care Assess and Treatment [CONS] Routine 04/06/19 14:08 Consult to Physician [CONS] Routine Labs Pending at D/C: None Recommended Follow-up Testing/Procedures: None Planned Operative Procedure(s) after DC: None Hospital Course: Patient was primarily admitted for medical management of spontaneous tension pneumothorax. He received needle decompression as well as chest tube placement due to large pneumothorax. Breathing treatments, Supplemental O2, Bronchodilators, and Steroid were added to improve his respiration. Serial chest x-ray was done and his chest tube was removed once his pneumothorax resolved. His hospital course was uncomplicated. However he did have an upset stomach but this resolved prior to discharge. He was advised to follow discharge instruction and to see his family doctor in 1 week. He was further advised to come back or seek immediate care should his symptoms come back or get worse. - Patient Instructions Diet: Usual Diet as Tolerated Fluid Restriction: 2000 mL Activity: As Tolerated Driving: Do Not Drive Showering/Bathing: May Shower Wound/Incision Care: Keep Operative Site/Wound Site Clean and Dry Notify Provider of: Fever, Increased Pain, Drainage, Nausea and/or Vomiting Other/Special Instructions: - Please take all new medications as directed. - Resume routine home medications and activity as tolerated. - Continue with Prednisone taper dose until you see your family doctor. - Call or follow up with your doctor for any concerns or issues after discharge. - Follow up with your doctor 1 week. - Come back or seek immediate care should your symptoms persist or get worse - Discharge Plan *PRESCRIPTION DRUG MONITORING PROGRAM REVIEWED*: No *COPY OF PRESCRIPTION DRUG MONITORING REPORT IN PATIENT DARLINE: No Prescriptions/Med Rec: Hydrocodone/Acetaminophen [[place] 10-325 Tablet] 1 each PO Q8H #15 tablet methylPREDNISolone [Medrol] 4 mg PO ASDIRECTED #1 dosepk Home Medications: Home Meds Albuterol Sulfate [Albuterol Sulfate Hfa] 2 puff IH Q4HR PRN 10/16/18 [History] Albuterol/Ipratropium [DuoNeb 3.0-0.5 MG/3 ML] 3 ml IH BID 10/16/18 [History] Budesonide/Formoterol Fumarate [Symbicort 80-4.5 Mcg Inhaler] 2 puff IH BID [History] Tiotropium [place] [Spiriva Respimat] 2.5 mcg IH DAILY 10/16/18 [History] Hydrocodone/Acetaminophen [[place] 10-325 Tablet] 1 each PO Q8H #15 tablet [Rx] methylPREDNISolone [Medrol] 4 mg PO ASDIRECTED #1 dosepk 04/10/19 [Rx] Oxygen Therapy Mode: Nasal Cannula Patient Handouts: Chronic Obstructive Pulmonary Disease, [id number], Home Oxygen Use, Adult, Pneumothorax Referrals: Fer Mi MD [Primary Care Provider] - Toro Arvizu MD [Physician] - - Discharge Summary/Plan Comment DC Time >30 min.: No Discharge Summary/Plan Comment: Discharge to Home - General Info Date of Service: 04/10/19 Admission Dx/Problem (Free Text: Admission Diagnosis/Problem Admission Diagnosis/Problem Pneumothorax on left Subjective Update: Follow Up Functional Status: Reports: Pain Controlled, Tolerating Diet, Ambulating, Urinating. Denies: New Symptoms - Review of Systems General: Denies: Fever, Weakness, Fatigue, Malaise, Chills HEENT: Reports: No Symptoms Pulmonary: Reports: Shortness of Breath. Denies: Pleuritic Chest Pain, Cough, Sputum, Wheezing Cardiovascular: Denies: Chest Pain, Dyspnea on Exertion, Lightheadedness Gastrointestinal: Denies: Abdominal Pain, Nausea, Vomiting Genitourinary: Reports: No Symptoms Musculoskeletal: Reports: Back Pain Skin: Reports: No Symptoms Neurological: Denies: Confusion, Difficulty Walking, Weakness, Gait Disturbance Psychiatric: Denies: Depression, Anxiety, Agitation, Cravings - Patient Data Vitals - Most Recent: Last Vital Signs Temp 36.7 C 04/10/19 16:00 Pulse 92 04/10/19 13:00 Resp 24 H 04/10/19 16:00 BP 158/94 H 04/10/19 16:00 Pulse Ox 97 04/10/19 17:12 Weight - Most Recent: 72.121 kg I&O - Last 24 hours: Intake & Output 04/10/19 04/10/19 04/10/19 06:59 14:59 22:59 Intake Total 200 180 400 Output Total 700 Balance 200 -520 400 Lab Results - Last 24 hrs: Laboratory Results - last 24 hr 04/10/19 04/10/19 Range/Units 04:25 04:25 WBC 17.37 H (4.23-9.07) K/mm3 RBC 4.61 L (4.63-6.08) M/mm3 Hgb 13.4 L (13.7-17.5) gm/L Hct 41.0 (40.1-51.0) % MCV 88.9 (79.0-92.2) fl MCH 29.1 (25.7-32.2) pg MCHC 32.7 (32.2-35.5) g/dl RDW Std Deviation 45.5 H (35.1-43.9) fL Plt Count 229 (163-337) K/mm3 MPV 11.0 (9.4-12.3) fl Neut % (Auto) 86.2 H (34.0-67.9) % Lymph % (Auto) 6.9 L (21.8-53.1) % [place] % (Auto) 6.6 (5.3-12.2) % Eos % (Auto) 0 L (0.8-7.0) Baso % (Auto) 0.0 L (0.1-1.2) % Neut # (Auto) 14.97 H (1.78-5.38) K/mm3 Lymph # (Auto) 1.20 L (1.32-3.57) K/mm3 [place] # (Auto) 1.14 H (0.30-0.82) K/mm3 Eos # (Auto) 0.00 L (0.04-0.54) K/mm3 Baso # (Auto) 0.00 L (0.01-0.08) K/mm3 Manual Slide Review Abnormal smear Sodium 139 (136-145) mEq/L Potassium 4.0 (3.5-5.1) mEq/L Chloride 103 (98-107) mEq/L Carbon Dioxide 29 (21-32) mEq/L Anion Gap 11.0 (5-15) BUN 24 H (7-18) mg/dL Creatinine 0.8 (0.7-1.3) mg/dL Est Cr Clr Drug Dosing 96.41 mL/min Estimated GFR (MDRD) > 60 (>60) mL/min BUN/Creatinine Ratio 30.0 H (14-18) Glucose 138 H (80-115) mg/dL Calcium 9.0 (8.5-10.1) mg/dL Magnesium 2.2 (1.8-2.4) mg/dl NARAYAN Results - Last 24 hrs: Microbiology 04/06/19 07:58 Gram Stain - Final Sputum - Expectorated Sputum Culture - Final Med Orders - Current: Current Medications Acetaminophen (Tylenol) 650 mg PO Q4H PRN PRN Reason: Pain (Mild 1-3)/fever Hydrocodone Bitart/Acetaminophen ([place] 325-5 Mg) 1 tab PO Q4H PRN PRN Reason: Pain (moderate 4-6) Last Admin: 04/10/19 08:39 Dose: 1 tab Albuterol (Proventil Hfa) 0 gm INH Q4H PRN PRN Reason: Shortness of Breath Albuterol/Ipratropium (Duoneb 3.0-0.5 Mg/3 Ml) 3 ml INH BIDRT [facility] Last Admin: 04/10/19 05:37 Dose: 3 ml Albuterol/Ipratropium (Duoneb 3.0-0.5 Mg/3 Ml) 3 ml NEB Q4HRRT PRN PRN Reason: Shortness of Breath Last Admin: 04/10/19 17:12 Dose: 3 ml Azithromycin (Zithromax) 250 mg PO Q24H [facility] Last Admin: 04/10/19 15:29 Dose: 250 mg Bisacodyl (Dulcolax) 5 mg PO DAILY PRN PRN Reason: Constipation Docusate Sodium (Colace) 100 mg PO BID PRN PRN Reason: Constipation Glycopyrrolate (Seebri Neohaler) 0 mcg IH BIDRT [facility] Last Admin: 04/10/19 05:37 Dose: 1 cap Guaifenesin/Phenylephrine HCl (Robitussin Dm) 10 ml PO Q4H PRN PRN Reason: Cough Hydromorphone HCl (Dilaudid) 0.25 mg IVPUSH Q2H PRN PRN Reason: Pain (severe 7-10) Promethazine HCl 6.25 mg/ (Sodium Chloride) 50.25 mls @ 100 mls/hr IV Q6H PRN PRN Reason: Nausea/Vomiting Lorazepam (Ativan) 1 mg IV Q6H PRN PRN Reason: Anxiety Magnesium Oxide (Magnesium Oxide) 400 mg PO BID [facility] Last Admin: 04/10/19 08:32 Dose: 400 mg Mometasone Furoate/Formoterol Fumar (Dulera 100-5 Mcg) 0 puff IH BIDRT [facility] Last Admin: 04/10/19 05:37 Dose: 2 puff Ondansetron HCl (Zofran) 4 mg IV Q6H PRN PRN Reason: Nausea/Vomiting Pantoprazole Sodium (Protonix) 40 mg PO BID [facility] Last Admin: 04/10/19 08:33 Dose: 40 mg Polyethylene Glycol (Miralax) 17 gm PO DAILY PRN PRN Reason: Constipation Prednisone (Prednisone) 40 mg PO WITHBREAKFAST [facility] Last Admin: 04/10/19 08:32 Dose: 40 mg Senna/Docusate Sodium (Senna Plus) 1 tab PO BID PRN PRN Reason: Constipation Sodium Chloride (Saline Flush) 10 ml FLUSH ASDIRECTED PRN PRN Reason: Keep Vein Open Last Admin: 04/06/19 12:39 Dose: 10 ml Temazepam (Restoril) 7.5 mg PO BEDTIME PRN PRN Reason: Sleep Discontinued Medications Albuterol/Ipratropium (Duoneb 3.0-0.5 Mg/3 Ml) 3 ml NEB ONETIME ONE Stop: 04/06/19 09:55 Last Admin: 04/06/19 14:31 Dose: 3 ml Albuterol/Ipratropium (Duoneb 3.0-0.5 Mg/3 Ml) Confirm Administered Dose 3 ml .ROUTE .STK-MED ONE Stop: 04/06/19 14:30 Last Admin: 04/06/19 15:07 Dose: Not Given Albuterol/Ipratropium (Duoneb 3.0-0.5 Mg/3 Ml) 3 ml NEB Q4HRRT PRN PRN Reason: Wheezing Epinephrine HCl (Adrenalin) 1 mg .ROUTE .STK-MED ONE Stop: 04/06/19 00:01 Glycopyrrolate (Seebri Neohaler) 0 mcg IH BIDRT [facility] Dextrose/Lactated Ringer's (Dextrose 5%-Lactated Ringers) 1,000 mls @ 999 mls/ hr IV ASDIRECTED [facility] Last Admin: 04/06/19 09:54 Dose: 999 mls/hr Sodium Chloride (Normal Saline) 1,000 mls @ 150 mls/hr IV ASDIRECTED [facility] Last Admin: 04/07/19 02:04 Dose: 150 mls/hr Magnesium Sulfate/Dextrose 1 (gm/ Premix) 100 mls @ 100 mls/hr IV ONETIME ONE Stop: 04/06/19 14:59 Last Admin: 04/06/19 14:48 Dose: 100 mls/hr Azithromycin 250 mg/ Sodium (Chloride) 250 mls @ 250 mls/hr IV Q24H [facility] Last Admin: 04/07/19 15:19 Dose: 250 mls/hr Sodium Chloride (Normal Saline) 1,000 mls @ 15 mls/hr IV ASDIRECTED [facility] Stop: 04/11/19 07:22 Labetalol HCl (Normodyne) Confirm Administered Dose 100 mg .ROUTE .STK-MED ONE Stop: 04/06/19 10:04 Last Admin: 04/06/19 10:04 Dose: 10 mg Labetalol HCl (Normodyne) 100 mg .ROUTE .STK-MED ONE Stop: 04/06/19 00:01 Lidocaine HCl (Xylocaine 1%) 10 ml .ROUTE .STK-MED ONE Stop: 04/06/19 00:01 Lorazepam (Ativan) Confirm Administered Dose 2 mg .ROUTE .STK-MED ONE Stop: 04/06/19 12:30 Last Admin: 04/06/19 12:40 Dose: Not Given Lorazepam (Ativan) 1 mg IV ONETIME ONE Stop: 04/06/19 12:36 Last Admin: 04/06/19 12:36 Dose: 1 mg Methylprednisolone Sodium Succinate (Solu-Medrol) 125 mg IVPUSH ONETIME ONE Stop: 04/06/19 09:55 Last Admin: 04/06/19 09:54 Dose: 125 mg Methylprednisolone Sodium Succinate (Solu-Medrol) Confirm Administered Dose 125 mg .ROUTE .STK-MED ONE Stop: 04/06/19 09:52 Last Admin: 04/06/19 12:39 Dose: Not Given Methylprednisolone Sodium Succinate (Solu-Medrol) 125 mg IVPUSH Q8H [facility] Last Admin: 04/08/19 10:03 Dose: 125 mg Methylprednisolone Sodium Succinate (Solu-Medrol) 125 mg .ROUTE .STK-MED ONE Stop: 04/06/19 00:01 Methylprednisolone Sodium Succinate (Solu-Medrol) 125 mg IVPUSH BID [facility] Last Admin: 04/09/19 08:48 Dose: 125 mg Midazolam HCl (Versed 1 Mg/Ml) 5 mg .ROUTE .STK-MED ONE Stop: 04/06/19 00:01 Midazolam HCl (Versed 1 Mg/Ml) 5 mg .ROUTE .STK-MED ONE Stop: 04/06/19 00:01 Morphine Sulfate (Morphine) 1 mg IVPUSH Q2H PRN PRN Reason: Pain (severe 7-10) Stop: 04/07/19 14:02 Last Admin: 04/07/19 06:42 Dose: 1 mg Pantoprazole Sodium (Protonix Iv) 40 mg IV Q12HR [facility] Last Admin: 04/08/19 08:23 Dose: 40 mg - Exam Quality Assessment: Reports: Supplemental Oxygen General: Reports: Alert, Oriented, Cooperative, No Acute Distress HEENT: Reports: Pupils Equal, Pupils Reactive, EOMI, Mucous Membr. Moist/[place] Neck: Reports: Supple, Trachea Midline Lungs: Reports: Normal Respiratory Effort, Decreased Breath Sounds, Rhonchi ( faint), Wheezing Cardiovascular: Reports: Regular Rate, Regular Rhythm GI/Abdominal Exam: Normal Bowel Sounds, Soft, Non-Tender, No Organomegaly, No Distention, No Abnormal Bruit (Male) Exam: Deferred Rectal (Males) Exam: Deferred Back Exam: Reports: Normal Inspection, Decreased Range of Motion Extremities: Normal Inspection, Normal Range of Motion, Non-Tender, No Pedal Edema, Normal Capillary Refill Skin: Reports: Warm, Dry, Intact Neurological: Reports: No New Focal Deficit Psy/Mental Status: Reports: Alert, Normal Affect, Normal Mood
--- NOTE | 2019-04-10 18:23 | CR ---
Chest: Portable view of the chest was obtained. Comparison: Prior chest x-ray performed earlier on the same day (7:17 AM). Previous right sided chest tube has been removed. No pneumothorax is seen on this study. Continuing atelectasis is noted within the left lung. Improved perihilar interstitial change is seen on the left side from prior exam. Lungs are hyperinflated compatible with emphysematous change. Heart size and mediastinum are within normal limits. Impression: 1. Removal of left chest tube. No pneumothorax is seen on this exam. 2. Mild atelectasis remains. 3. Emphysematous change is again noted. 4. Decreased left sided perihilar interstitial change. Diagnostic code #2
[2019-04-10] MEDS ORDERED: Calcium Carbonate 500 MG Tab.Chew PO PRN (18:39)
[2019-04-10] MEDS ORDERED: Scopolamine 1.5 MG Transdermal Patch TOP ONE (18:49)
[2019-04-10] MEDS ORDERED: Simethicone 80 MG Tab.Chew PO ONE (18:50)
== END 2019-04-10 20:40 | disposition home or self-care (01) | DRG 199 ==
LOC: JD.ED 09:40 → JD.ICU 13:37
PROVIDERS: ADMIT Internal Medicine; ATTEND Internal Medicine
PROC: 5A09357 Assistance with Respiratory Ventilation, Less than 24 Consecutive Hours, Continuous Positive Airway Pressure (ICD-10-PCS; principal; 2019-04-06)
PROC: 0W9B00Z Drainage of Left Pleural Cavity with Drainage Device, Open Approach (ICD-10-PCS; 2019-04-06)
DX: J93.0 Spontaneous tension pneumothorax (principal); J96.01 Acute respiratory failure with hypoxia; J96.02 Acute respiratory failure with hypercapnia; I10 Essential (primary) hypertension; J43.9 Emphysema, unspecified; Z66 Do not resuscitate; Z87.891 Personal history of nicotine dependence; Z79.899 Other long term (current) drug therapy; Z87.01 Personal history of pneumonia (recurrent)
CPT/HCPCS: 32551; 36415; 36600; 71045; 71045-26; 80048; 80053; 82803; 83036; 83735; 85025; 85610; 85730; 86140; 87205; 93005; 94640; 94660; 94762; 96372; 96374; 96375; 97110-GP; 97116-GP; 97162-GP; 97165-GO; 97530-GO; 99283; 99291-25; 99292; A9270-GY; C9113; J0171; J0456; J2001; J2060; J2250; J2270; J2930; J3475; J3490; J7040; J7042; J7050; J7620-GY

== ENCOUNTER 2019-04-13 03:07 | Emergency (ER) | payer OTHER ==
--- NOTE | 2019-04-13 03:17 | EDM.PDOC ---
ED HPI GENERAL MEDICAL PROBLEM - General Chief Complaint: Respiratory Problem Stated Complaint: [facility] Time Seen by Provider: 04/13/19 03:11 Source of Information: Reports: Patient, RN History Limitations: Reports: Physical Impairment - History of Present Illness INITIAL COMMENTS - FREE TEXT/NARRATIVE: Mr. Chu is a very pleasant 64 year old man with a history of advanced COPD, on home oxygen 2 L per minute continuously. Medical records indicate that he was admitted to this hospital on 04/06/2019 after developing a spontaneous left-sided pneumothorax. A left-sided chest tube was placed, and the patient was admitted for treatment of the pneumothorax, as well as for a COPD exacerbation, being discharged home on 04/10/2019. The patient tells me that he subsequently followed up with his Harpsichord Maker's PA yesterday, 04/12/2019. The patient now returns to the ED via EMS after developing sudden-onset shortness of breath when he got up around 02:30 this morning. EMS found his oxygen saturation to be 69%. They placed a partial rebreather mask. The patient denies any recent illnesses, such as fever, chills, cough, chest discomfort, palpitations, nausea, vomiting, constipation, diarrhea, abdominal pain, recent weight gain or weight loss, bloody bowel movements, black bowel movements, joint aches, headaches, or rashes. The patient's PCP is Dr. Fer Mi. His Harpsichord Maker is Dr. Thiago Velázquez. - Related Data Allergies Allergy/AdvReac Type Severity Reaction Status Date / Time No Known Allergies Allergy Verified 04/13/19 03:10 Home Meds: Home Meds Albuterol Sulfate [Albuterol Sulfate Hfa] 2 puff IH Q4HR PRN 10/16/18 [History] Albuterol/Ipratropium [DuoNeb 3.0-0.5 MG/3 ML] 3 ml IH BID 10/16/18 [History] Budesonide/Formoterol Fumarate [Symbicort 80-4.5 Mcg Inhaler] 2 puff IH BID [History] Tiotropium [place] [Spiriva Respimat] 2.5 mcg IH DAILY 10/16/18 [History] Hydrocodone/Acetaminophen [Dolliver 10-325 Tablet] 1 each PO Q8H #15 tablet [Rx] methylPREDNISolone [Medrol] 4 mg PO ASDIRECTED #1 dosepk 04/10/19 [Rx] Past Medical History Respiratory History: Reports: COPD (advanced, on 2L O2/NC continuously), Pneumothorax (spontaneous, 04/06/2019, 04/13/2019) Musculoskeletal History: Reports: Fracture (right arm) - Past Surgical History HEENT Surgical History: Reports: Oral Surgery (Dentures) Respiratory Surgical History: Reports: Other (See Below) (Left chest tube 2018, 04/13/2019) GI Surgical History: Reports: Hernia, Inguinal (left) Musculoskeletal Surgical History: Reports: Other (See Below) (Right foot FB removal) Social & Family History - Tobacco Use Smoking Status *Q: Former Smoker Years of Tobacco use: 33 Packs/Tins Daily: 2 Month/Year Tobacco Last Used: Quit Jul 2018 - Caffeine Use Caffeine Use: Reports: Coffee - Alcohol Use Alcohol Use History: Yes Alcohol Use Frequency: Rarely - Recreational Drug Use Recreational Drug Use: No - Living Situation & Occupation Living situation: Reports: , with Spouse Occupation: Employed ([employer]) ED ROS GENERAL - Review of Systems Review Of Systems: ROS reveals no pertinent complaints other than HPI. ED EXAM, GENERAL - Physical Exam Exam: See Below Exam Limited By: No Limitations General Appearance: Alert, Mild Distress (appears dyspneic), Thin Eye Exam: Bilateral Eye: EOMI, Normal Inspection Ears: Normal External Exam, Hearing Grossly Normal Nose: Normal Inspection Throat/Mouth: Normal Inspection, Normal Lips, Normal Voice, No Airway Compromise Head: Atraumatic, Normocephalic Neck: Normal Inspection, Full Range of Motion Respiratory/Chest: No Accessory Muscle Use, Decreased Breath Sounds (left lung field), Crackles (2 subcutaneous emphysema, to the left chest). No: Rhonchi, Wheezing, Prolonged Expiration Cardiovascular: Normal Peripheral Pulses, Regular Rate, Rhythm, No Edema, No Gallop, No JVD, No Murmur, No Rub Peripheral Pulses: 4+: Radial (L), Radial (R) GI/Abdominal: Normal Bowel Sounds, Soft, Non-Tender, No Organomegaly, No Distention, No Abnormal Bruit, No Mass (Male) Exam: Deferred Rectal (Males) Exam: Deferred Back Exam: Normal Inspection, Full Range of Motion, NT Extremities: Normal Inspection, Normal Range of Motion, No Pedal Edema, Normal Capillary Refill Neurological: Alert, Oriented, Normal Cognition, No Motor/Sensory Deficits Psychiatric: Normal Affect Skin Exam: Warm, Dry, Intact, Normal Color, No Rash ED RESPIRATORY PROCEDURES - Chest Tube Insertion Chest Tube Location: Left Site: Mid Axillary Line, Intercostal Space: (6th) Tube Size: 28Fr Skin Prep: Betadine Local Anesthesia - Lidocaine (Xylocaine): 1% with EPI (50:50 admixture) Local Anesthesia - Bupivicaine (Marcaine): 0.5% Plain (50:50 admixture) Local Anesthetic Volume: Other (15 ml) Cox of Air Cotton: Yes Number of Attempts: 1 Tube Sutured to Skin: Yes Post procedure tube position confirmed by: by CXR Tube Connected to Suction: Yes Course - Vital Signs Last Recorded V/S: Last Vital Signs Temp 36.1 C 04/13/19 03:11 Pulse 144 H 04/13/19 03:11 Resp 21 H 04/13/19 03:11 BP 153/116 H 04/13/19 03:11 Pulse Ox 91 L 04/13/19 03:11 - Orders/Labs/Meds Orders: Active Orders 24 hr Category Date Time Status EKG Documentation Completion [RC] STAT Care 04/13/19 03:25 Ordered Chest 1V Frontal [CR] Stat Exams 04/13/19 03:24 Ordered Chest 1V-Tube Placement Chk NC [CR] Stat Exams 04/13/19 03:38 Ordered Meds: Medications Discontinued Medications Generic Name Dose Route Start Last Admin Trade Name Disha PRN Reason Stop Dose Admin Bupivacaine HCl 10 ml 04/13/19 03:25 Sensorcaine-Mpf 0.5% INJECT 04/13/19 03:26 ONETIME ONE Bupivacaine HCl Confirm 04/13/19 03:26 Sensorcaine-Mpf 0.5% Administered 04/13/19 03:27 Dose 10 ml .ROUTE .STK-MED ONE Lidocaine HCl Confirm 04/13/19 03:26 Xylocaine 1% Administered 04/13/19 03:27 Dose 10 ml .ROUTE .STK-MED ONE Lidocaine/Epinephrine 20 ml 04/13/19 03:25 Xylocaine 1% With Epinephrine 1:100,000 INJECT 04/13/19 03:26 ONETIME ONE - Re-Assessments/Exams Free Text/Narrative Re-Assessment/Exam: 04/13/19 03:22 Portable chest x-ray reviewed. The cardiac silhouette is within normal limits. No pulmonary vascular congestion. No pleural effusion seen on this AP view. No focal infiltrate. There appears to be an approximately 80% pneumothorax on the left. There may be subtle midline shift to the right. There is hyperinflation on the right with bilateral diaphragmatic flattening, consistent with advanced COPD. There is subcutaneous emphysema to the lateral left chest, left infra- and supraclavicular fossas, and to the base of the right neck. Formal read per the Radiologist pending. 04/13/19 04:07 Following local anesthesia with a 50:50 admixture of lidocaine 1% with epinephrine and bupivacaine 0.5% without epinephrine, a left-sided 28-gauge chest tube was placed without difficulty. I felt resistance to insertion of the tube at about 6 cm. I tried repositioning the tube several times, always meeting resistance at that time, therefore I did not push it. The tube was sutured into place, then dressed with Vaseline gauze, dry gauze, and elastic tape. The patient tolerated the procedure well. A post-procedure portable chest x-ray shows the tip of the tube in the mid left chest, with expansion of the lung. There appears to be a large left inferior bleb. Subcutaneous emphysema is again demonstrated. Case discussed with Dr. Arvizu at 04:02. He agreed to be the surgical consult on the case, provided the patient was admitted to the Hospitalist service. He did not want antibiotics started. Case then discussed with Dr. Garcia at 04:05. He declined admission of the patient, stating that his recommendations following the patient's previous admission were that if this happened again, that the patient go to [place] in order to be evaluated by a thoracic surgeon for possible pleurodesis. 04/13/19 04:16 The above was discussed with the patient and his . They prefer transfer to [facility]. 04/13/19 04:39 Case discussed with [place] at [facility] at 04:17. Case then discussed with Dr. Grande, Hospitalist at [facility], and Dr. Watson, Harpsichord Maker at [facility], at 04:35. Dr. Watson opined that the patient may have some septations leading to a false wall, disallowing me to advance the chest tube. Since all of the chest tube fenestrations are within the chest, he agreed that the tube did not need to be advanced further. He did not want any blood work be obtained; that if they needed any, they would draw it themselves. Dr. Grande accepted the patient for transfer to their facility. The patient will be transported by ground ambulance. Pre-and post procedure chest radiograph images have been pushed to [facility]. Departure - Departure Time of Disposition: 04:40 Disposition: DC/Tfer to Acute Hospital 02 Condition: Fair Clinical Impression: Recurrent spontaneous pneumothorax - Discharge Information *PRESCRIPTION DRUG MONITORING PROGRAM REVIEWED*: Not Applicable *COPY OF PRESCRIPTION DRUG MONITORING REPORT IN PATIENT DARLINE: Not Applicable Referrals: Fer Mi MD [Primary Care Provider] - Thiago Velázquez MD [Ordering Only Provider] - - My Orders Last 24 Hours: My Active Orders 04/13/19 03:24 Chest 1V Frontal [CR] Stat 04/13/19 03:25 EKG Documentation Completion [RC] STAT 04/13/19 03:38 Chest 1V-Tube Placement Chk NC [CR] Stat - Assessment/Plan Last 24 Hours: My Active Orders 04/13/19 03:24 Chest 1V Frontal [CR] Stat 04/13/19 03:25 EKG Documentation Completion [RC] STAT 04/13/19 03:38 Chest 1V-Tube Placement Chk NC [CR] Stat
[2019-04-13] MEDS ORDERED: Lidocaine 1% with EPINEPHrine 1:100,000 20 ML MDV INJECT ONE (03:25)
[2019-04-13] MEDS ORDERED: Bupivacaine 0.5% 10 ML SDV INJECT ONE (03:25)
[2019-04-13] MEDS ORDERED: Bupivacaine 0.5% 10 ML SDV ONE (03:26)
[2019-04-13] MEDS ORDERED: Lidocaine 1% 10 ML MDV ONE (03:26)
[2019-04-13] MEDS ORDERED: Acetaminophen/HYDROcodone 325-5 MG Tab PO ONE (04:54)
--- NOTE | 2019-04-15 07:00 | CR ---
Chest: Portable view of the chest was obtained. Comparison: Prior chest x-ray performed earlier the same day (3:11 AM). Left-sided chest tube is seen. Side port lies within the chest wall. Pneumothorax has been evacuated. Large amount of subcutaneous air is seen increased from previous exam extending into the left neck. Scarring is noted within the left lung. Right lung is clear. Heart size and mediastinum are normal. Impression: 1. Increasing subcutaneous air within the left chest wall. 2. Left-sided chest tube in place with pneumothorax having been evacuated. Note made that the side port of the chest tube lies within the chest wall. 3. Increasing subcutaneous air within the left chest wall and left neck. Diagnostic code #5
--- NOTE | 2019-04-15 07:00 | CR ---
Chest: Portable view of the chest was obtained. Comparison: Prior chest x-ray of 04/10/19 Large left-sided pneumothorax has reappeared from as an interval change from most recent studies. Left-sided rib fractures are noted with subcutaneous air seen within the chest wall. Right lung is clear. Heart size is normal. Upper mediastinum is normal. Impression: 1. Reappearance of large left-sided pneumothorax. 2. Subcutaneous air within the left chest as well as stable left-sided rib fractures. Diagnostic code #5
== END 2019-04-13 05:07 ==
LOC: JD.ED 03:07
DX: J93.83 Other pneumothorax (principal); J44.9 Chronic obstructive pulmonary disease, unspecified; Z87.891 Personal history of nicotine dependence; Z79.899 Other long term (current) drug therapy
CPT/HCPCS: 32551; 71045; 93005; 99285; A9270; 36556; 93010

== ENCOUNTER 2021-10-05 14:10 | Inpatient (IN) | payer MEDICARE, OTHER ==
[2021-10-05] MEDS ORDERED: Sodium Chloride 0.9% 10 ML Syringe FLUSH PRN (14:23)
[2021-10-05] MEDS ORDERED: Albuterol 0.083% 2.5 MG/3 ML Neb Soln NEB ONE (14:24)
[2021-10-05] MEDS ORDERED: Levofloxacin/Dextrose 5%-Water 500 MG in Premix Bag 1 BAG IV ONE (15:25)
[2021-10-05] MEDS ORDERED: methylPREDNISolone Sodium Succinate 125 MG/2 ML SDV IVPUSH ONE (15:26)
[2021-10-05 16:45] LABS: CORONAVIRUS COVID-19 NAA NEGATIVE (NEGATIVE)
[2021-10-05] MEDS ORDERED: Sodium Chloride 0.9% 1,000 ML IV ONE (17:40)
[2021-10-05] MEDS ORDERED: Albuterol/Ipratropium 3.0-0.5 MG/3 ML Neb Soln NEB PRN (18:06)
[2021-10-05] MEDS ORDERED: Acetaminophen 325 MG Tab PO PRN (18:06)
[2021-10-05] MEDS ORDERED: Benzonatate 100 MG Cap PO PRN (18:13)
[2021-10-05] MEDS: Sodium Chloride 0.9% 1,000 ML IV SCH (18:58)
[2021-10-05] MEDS: cefTRIAXone 2 GM in Sodium Chloride 0.9% 100 ML IV SCH (18:58)
[2021-10-05] MEDS: methylPREDNISolone Sodium Succinate 40 MG/1 ML SDV IVPUSH SCH (20:24)
[2021-10-05] MEDS: guaiFENesin 600 MG Tab.ER PO SCH (20:25)
[2021-10-06] MEDS: methylPREDNISolone Sodium Succinate 40 MG/1 ML SDV IVPUSH SCH ×4 (02:03→20:22)
[2021-10-06] MEDS: Ondansetron 4 MG/2 ML SDV IV PRN ×2 (02:22→09:06)
[2021-10-06] MEDS: Albuterol 0.083% 2.5 MG/3 ML Neb Soln NEB PRN ×3 (07:59→16:28)
[2021-10-06] MEDS: guaiFENesin 600 MG Tab.ER PO SCH ×2 (08:57→20:22)
[2021-10-06] MEDS: Enoxaparin 40 MG/0.4 ML Syringe SUBCUT SCH (08:57)
[2021-10-06] MEDS ORDERED: Albuterol 6.7 GM Inhaler INH PRN (09:57)
[2021-10-06] MEDS: Tiotropium Bromide 4 GM Inhalation Spray (2.5mcg/1 dose; 10 doses) INH SCH (10:13)
[2021-10-06] MEDS: Tamsulosin 0.4 MG Cap.ER PO SCH (11:06)
[2021-10-06] MEDS: Azithromycin 500 MG in Sodium Chloride 0.9% 250 ML IV SCH (14:10)
[2021-10-06] MEDS: Sodium Chloride 0.9% 1,000 ML IV SCH (15:03)
[2021-10-06] MEDS: cefTRIAXone 2 GM in Sodium Chloride 0.9% 100 ML IV SCH (17:26)
[2021-10-06] MEDS: Formoterol/Mometasone 100-5 MCG 8.8 GM Inhaler IH SCH (20:17)
[2021-10-06] MEDS: Fluticasone NASAL Spray 16 GM Bottle NASBOTH SCH (20:22)
[2021-10-07] MEDS: methylPREDNISolone Sodium Succinate 40 MG/1 ML SDV IVPUSH SCH ×4 (02:12→20:57)
[2021-10-07] MEDS: Sodium Chloride 0.9% 1,000 ML IV SCH (03:50)
[2021-10-07] MEDS: Formoterol/Mometasone 100-5 MCG 8.8 GM Inhaler IH SCH ×2 (08:20→20:04)
[2021-10-07] MEDS: Albuterol 0.083% 2.5 MG/3 ML Neb Soln NEB PRN ×3 (08:20→15:59)
[2021-10-07] MEDS: Tiotropium Bromide 4 GM Inhalation Spray (2.5mcg/1 dose; 10 doses) INH SCH (08:21)
[2021-10-07] MEDS: Enoxaparin 40 MG/0.4 ML Syringe SUBCUT SCH (09:15)
[2021-10-07] MEDS: Tamsulosin 0.4 MG Cap.ER PO SCH (09:15)
[2021-10-07] MEDS: guaiFENesin 600 MG Tab.ER PO SCH ×2 (09:15→20:57)
[2021-10-07] MEDS: Fluticasone NASAL Spray 16 GM Bottle NASBOTH SCH ×2 (09:15→20:56)
[2021-10-07] MEDS: Azithromycin 500 MG in Sodium Chloride 0.9% 250 ML IV SCH (15:19)
[2021-10-07] MEDS: cefTRIAXone 2 GM in Sodium Chloride 0.9% 100 ML IV SCH (18:22)
[2021-10-08] MEDS: Albuterol 0.083% 2.5 MG/3 ML Neb Soln NEB PRN ×4 (03:35→16:18)
[2021-10-08] MEDS: methylPREDNISolone Sodium Succinate 40 MG/1 ML SDV IVPUSH SCH ×4 (04:35→20:10)
[2021-10-08] MEDS ORDERED: LORazepam 2 MG/ML SDV IVPUSH ONE ×2 (04:39→05:38)
[2021-10-08] MEDS ORDERED: Diltiazem 50 MG/10 ML SDV IVPUSH ONE (05:19)
[2021-10-08] MEDS ORDERED: Ipratropium 0.02% 0.5 MG/2.5 ML Neb Soln ONE (05:40)
[2021-10-08] MEDS ORDERED: Ipratropium 0.02% 0.5 MG/2.5 ML Neb Soln NEB ONE (05:41)
[2021-10-08] MEDS: Cefepime 2 GM in Sodium Chloride 0.9% 50 ML IV SCH ×3 (06:15→22:18)
[2021-10-08] MEDS ORDERED: Iopamidol 755 Mg/ML 100 ML Bottle IVPUSH ONE (07:07)
[2021-10-08] MEDS ORDERED: Sodium Chloride 0.9% 10 ML Syringe FLUSH PRN (07:07)
[2021-10-08] MEDS: Levofloxacin/Dextrose 5%-Water 750 MG in Premix Bag 1 BAG IV SCH (07:13)
[2021-10-08] MEDS ORDERED: Sodium Chloride 0.9% 100 ML IV SCH (07:15)
[2021-10-08] MEDS ORDERED: Vancomycin 1 GM, Vancomycin 500 MG in Sodium Chloride 0.9% 500 ML IV ONE (08:00)
[2021-10-08] MEDS: Enoxaparin 40 MG/0.4 ML Syringe SUBCUT SCH (08:13)
[2021-10-08] MEDS: Formoterol/Mometasone 100-5 MCG 8.8 GM Inhaler IH SCH ×2 (08:54→20:14)
[2021-10-08] MEDS: Tiotropium Bromide 4 GM Inhalation Spray (2.5mcg/1 dose; 10 doses) INH SCH (08:54)
[2021-10-08] MEDS: Tamsulosin 0.4 MG Cap.ER PO SCH (09:34)
[2021-10-08] MEDS: guaiFENesin 600 MG Tab.ER PO SCH ×2 (09:34→21:37)
[2021-10-08] MEDS: Fluticasone NASAL Spray 16 GM Bottle NASBOTH SCH ×2 (09:35→20:10)
[2021-10-08] MEDS ORDERED: LORazepam 2 MG/ML SDV IVPUSH PRN (11:45)
[2021-10-08] MEDS ORDERED: Furosemide 40 MG/4 ML VIAL IVPUSH ONE (11:47)
[2021-10-08] MEDS: Vancomycin 1 GM, Vancomycin 250 MG in Sodium Chloride 0.9% 250 ML IV SCH (20:01)
[2021-10-09] MEDS: methylPREDNISolone Sodium Succinate 40 MG/1 ML SDV IVPUSH SCH ×4 (03:12→20:27)
[2021-10-09] MEDS ORDERED: methylPREDNISolone Sodium Succinate 125 MG/2 ML SDV ONE (03:29)
[2021-10-09] MEDS: Cefepime 2 GM in Sodium Chloride 0.9% 50 ML IV SCH ×3 (06:10→22:20)
[2021-10-09] MEDS: Levofloxacin/Dextrose 5%-Water 750 MG in Premix Bag 1 BAG IV SCH (06:26)
[2021-10-09] MEDS: Vancomycin 1 GM, Vancomycin 250 MG in Sodium Chloride 0.9% 250 ML IV SCH ×2 (08:09→20:20)
[2021-10-09] MEDS: Enoxaparin 40 MG/0.4 ML Syringe SUBCUT SCH (08:13)
[2021-10-09] MEDS: guaiFENesin 600 MG Tab.ER PO SCH ×2 (08:13→20:19)
[2021-10-09] MEDS: Tamsulosin 0.4 MG Cap.ER PO SCH (08:13)
[2021-10-09] MEDS: Fluticasone NASAL Spray 16 GM Bottle NASBOTH SCH ×2 (08:14→20:19)
[2021-10-09] MEDS: Tiotropium Bromide 4 GM Inhalation Spray (2.5mcg/1 dose; 10 doses) INH SCH (08:31)
[2021-10-09] MEDS: Albuterol 0.083% 2.5 MG/3 ML Neb Soln NEB PRN ×3 (08:31→20:36)
[2021-10-09] MEDS: Formoterol/Mometasone 100-5 MCG 8.8 GM Inhaler IH SCH ×2 (08:31→20:36)
[2021-10-09] MEDS ORDERED: Famotidine 20 MG Tab PO PRN (21:01)
[2021-10-10] MEDS: methylPREDNISolone Sodium Succinate 40 MG/1 ML SDV IVPUSH SCH ×3 (03:10→20:28)
[2021-10-10] MEDS: Cefepime 2 GM in Sodium Chloride 0.9% 50 ML IV SCH (06:10)
[2021-10-10] MEDS: Levofloxacin/Dextrose 5%-Water 750 MG in Premix Bag 1 BAG IV SCH (06:38)
[2021-10-10] MEDS ORDERED: Vancomycin 1 GM, Vancomycin 500 MG in Sodium Chloride 0.9% 500 ML IV SCH (08:00)
[2021-10-10] MEDS: Tamsulosin 0.4 MG Cap.ER PO SCH (08:15)
[2021-10-10] MEDS: guaiFENesin 600 MG Tab.ER PO SCH ×2 (08:15→20:28)
[2021-10-10] MEDS: Enoxaparin 40 MG/0.4 ML Syringe SUBCUT SCH (08:15)
[2021-10-10] MEDS: Fluticasone NASAL Spray 16 GM Bottle NASBOTH SCH ×2 (08:16→20:28)
[2021-10-10] MEDS: Formoterol/Mometasone 100-5 MCG 8.8 GM Inhaler IH SCH ×2 (08:58→20:16)
[2021-10-10] MEDS: Albuterol 0.083% 2.5 MG/3 ML Neb Soln NEB PRN ×2 (08:58→20:17)
[2021-10-10] MEDS: Tiotropium Bromide 4 GM Inhalation Spray (2.5mcg/1 dose; 10 doses) INH SCH (08:58)
[2021-10-10] MEDS: Benzocaine/Cetylpyridinium/Menthol Lozenge MUCMEM PRN ×2 (12:05→17:20)
[2021-10-10] MEDS ORDERED: traZODone 50 MG Tab PO ONE (20:50)
[2021-10-11] MEDS ORDERED: Levofloxacin 750 MG Tab PO SCH (07:00)
[2021-10-11] MEDS: Albuterol 0.083% 2.5 MG/3 ML Neb Soln NEB PRN (08:59)
[2021-10-11] MEDS: Formoterol/Mometasone 100-5 MCG 8.8 GM Inhaler IH SCH (08:59)
[2021-10-11] MEDS: Tiotropium Bromide 4 GM Inhalation Spray (2.5mcg/1 dose; 10 doses) INH SCH (08:59)
[2021-10-11] MEDS: Tamsulosin 0.4 MG Cap.ER PO SCH (09:26)
[2021-10-11] MEDS: Enoxaparin 40 MG/0.4 ML Syringe SUBCUT SCH (09:26)
[2021-10-11] MEDS: guaiFENesin 600 MG Tab.ER PO SCH (09:26)
[2021-10-11] MEDS: methylPREDNISolone Sodium Succinate 40 MG/1 ML SDV IVPUSH SCH (09:26)
[2021-10-11] MEDS: Fluticasone NASAL Spray 16 GM Bottle NASBOTH SCH (11:44)
== END 2021-10-11 16:15 | disposition home or self-care (01) | DRG 193 ==
LOC: JD.ED 14:10 → JD.MS 17:18 → JD.ICU 17:19 → JD.MS 18:18
PROVIDERS: ADMIT Family Medicine; ATTEND Family Medicine
PROC: 5A09457 Assistance with Respiratory Ventilation, 24-96 Consecutive Hours, Continuous Positive Airway Pressure (ICD-10-PCS; principal; 2021-10-08)
DX: J18.9 Pneumonia, unspecified organism (principal); J96.02 Acute respiratory failure with hypercapnia; J44.1 Chronic obstructive pulmonary disease with (acute) exacerbation; E87.2 Acidosis; J44.0 Chronic obstructive pulmonary disease with (acute) lower respiratory infection; Z99.81 Dependence on supplemental oxygen; Z79.51 Long term (current) use of inhaled steroids; R00.0 Tachycardia, unspecified; Z79.899 Other long term (current) drug therapy; Z87.891 Personal history of nicotine dependence; Z98.890 Other specified postprocedural states; I10 Essential (primary) hypertension; F41.9 Anxiety disorder, unspecified; Z66 Do not resuscitate; N40.0 Benign prostatic hyperplasia without lower urinary tract symptoms; Z20.822 Contact with and (suspected) exposure to COVID-19
CPT/HCPCS: 0240U; 36415; 36600; 71045; 71275; 80048; 80053; 80202; 82803; 83605; 83735; 83880; 84100; 84145; 84484; 85025; 85379; 85610; 85730; 86738; 87040; 87205; 87899; 93005; 94640; 94660; 94667; 94668; 96365; 96375; 99285; 93010; A9270-GY; J0456; J0692; J0696; J1650; J1940; J1956; J2060; J2405; J2920; J2930; J3370; J7030; J7040; J7050; Q9967

== ENCOUNTER 2023-07-21 09:25 | Inpatient (IN) | payer MEDICARE, OTHER ==
[2023-07-21] MEDS ORDERED: Sodium Chloride 0.9% 10 ML Syringe FLUSH PRN (10:19)
[2023-07-21 10:54] LABS: BASOPHILS PERCENT AUTO 0.3 % (0.0-1.0); HEMATOCRIT 44.7 % (42.0-52.0); HEMOGLOBIN 13.6 gm/dl (14.0-18.0); IMMATURE GRAN ABSOLUTE AUTO 0.04 K/mm3 (0.00-0.05); IMMATURE GRAN PERCENT AUTO 0.4 % (0.0-0.4); LYMPHOCYTES ABSOLUTE AUTO 0.4 K/mm3 (1.0-4.8); MEAN CORPUSCULAR HGB CONC 30.4 g/dl (32.0-36.0); MEAN CORPUSCULAR VOLUME 101.8 fl (83.0-99.0); MEAN PLATELET VOLUME 10.7 fl (9.4-12.4); MONOCYTES ABSOLUTE AUTO 0.5 K/mm3 (0.0-0.8); MONOCYTES PERCENT AUTO 5.3 % (0.0-8.0); PLATELET COUNT,PLT 138 K/mm3 (150-400); RED BLOOD CELL COUNT 4.39 M/mm3 (4.52-5.90); WHITE BLOOD CELL COUNT,WBC 8.91 K/mm3 (3.9-11.3)
[2023-07-21 11:22] LABS: A/G RATIO 1.1 (1-2); ALBUMIN 3.7 g/dl (3.4-5.0); ANION GAP 10.6 (5-15); BILIRUBIN TOTAL 0.7 mg/dL (0.2-1.0); BUN/CREATININE RATIO 18.6 (14-18); CALCIUM 9.2 mg/dL (8.5-10.1); CREATININE 0.7 mg/dL (0.7-1.3); EST CRCL DRUG DOSING (CG) 101.83 mL/min; MAGNESIUM 1.7 mg/dL (1.8-2.4); POTASSIUM,K 4.6 mEq/L (3.5-5.1); PROTEIN TOTAL,TP 7.2 g/dl (6.4-8.2)
[2023-07-21] MEDS ORDERED: Azithromycin 500 MG in Sodium Chloride 0.9% 250 ML IV ONE (11:42)
[2023-07-21] MEDS ORDERED: cefTRIAXone 1 GM in Sodium Chloride 0.9% 100 ML IV ONE (11:42)
[2023-07-21] MEDS ORDERED: methylPREDNISolone Sodium Succinate 125 MG/2 ML SDV IVPUSH ONE (11:44)
[2023-07-21] MEDS ORDERED: Ondansetron 4 MG Tab.DIS PO PRN (11:59)
[2023-07-21] MEDS ORDERED: Acetaminophen 325 MG Tab PO PRN (11:59)
[2023-07-21] MEDS ORDERED: Ondansetron 4 MG/2 ML SDV IV PRN (11:59)
[2023-07-21] MEDS ORDERED: Azithromycin 500 MG in Sodium Chloride 0.9% 250 ML IV SCH (12:00)
[2023-07-21] MEDS ORDERED: cefTRIAXone 2 GM in Sodium Chloride 0.9% 100 ML IV SCH (12:00)
[2023-07-21] MEDS ORDERED: Heparin Sodium 5,000 Units/ML Vial SUBCUT SCH (12:00)
[2023-07-21 12:39] LABS: CORONAVIRUS COVID-19 NAA NEGATIVE (NEGATIVE); INFLUENZA A NAA NEGATIVE (NEGATIVE); RESPIRATORY SYNCYTIAL VIR NAA NEGATIVE (NEGATIVE)
[2023-07-21] MEDS: Albuterol/Ipratropium 3.0-0.5 MG/3 ML Neb Soln NEB SCH ×3 (13:30→20:34)
[2023-07-21 13:53] LABS: APPEARANCE,URINE CLEAR (Clear); BILIRUBIN,URINE 1+ (Negative); COLOR,URINE YELLOW (Yellow); GLUCOSE,URINE NEGATIVE (Negative); KETONES,URINE 4+ (Negative); LEUKOCYTE ESTERASE,URINE NEGATIVE (Negative); NITRITE,URINE NEGATIVE (Negative); OCCULT BLOOD,URINE 1+ (Negative); PH,URINE 5.5 (5.0-8.0); PROTEIN,URINE 1+ (Negative); UROBILINOGEN,URINE 0.2 (0.2-1.0)
[2023-07-21 14:05] LABS: BACTERIA,URINE FEW /hpf (FEW); EPITHELIAL CELLS,URINE 0-5 /hpf (0-5); MUCUS,URINE MANY /hpf (FEW); WBC,URINE 0-5 /hpf (0-5)
[2023-07-21] MEDS: Heparin Sodium 5,000 Units/ML Vial SUBCUT SCH ×2 (15:09→22:49)
[2023-07-22] MEDS: Albuterol/Ipratropium 3.0-0.5 MG/3 ML Neb Soln NEB SCH ×6 (00:24→20:05)
[2023-07-22 05:36] LABS: ANION GAP 5.5 (5-15); CALCIUM 9.2 mg/dL (8.5-10.1); CREATININE 0.7 mg/dL (0.7-1.3); EST CRCL DRUG DOSING (CG) 101.96 mL/min; POTASSIUM,K 4.5 mEq/L (3.5-5.1)
[2023-07-22 05:43] LABS: HEMATOCRIT 41.1 % (42.0-52.0); HEMOGLOBIN 12.6 gm/dl (14.0-18.0); IMMATURE GRAN ABSOLUTE AUTO 0.04 K/mm3 (0.00-0.05); IMMATURE GRAN PERCENT AUTO 0.6 % (0.0-0.4); LYMPHOCYTES ABSOLUTE AUTO 0.5 K/mm3 (1.0-4.8); LYMPHOCYTES PERCENT AUTO 6.5 % (24.0-44.0); MEAN CORPUSCULAR HEMOGLOBIN 30.9 pg (28.0-32.0); MEAN CORPUSCULAR HGB CONC 30.7 g/dl (32.0-36.0); MEAN CORPUSCULAR VOLUME 100.7 fl (83.0-99.0); MONOCYTES ABSOLUTE AUTO 0.3 K/mm3 (0.0-0.8); MONOCYTES PERCENT AUTO 3.6 % (0.0-8.0); NEUTROPHILS ABSOLUTE AUTO 6.2 K/mm3 (1.8-7.7); NEUTROPHILS PERCENT AUTO 89.3 % (41.0-71.0); PLATELET COUNT,PLT 146 K/mm3 (150-400); RED BLOOD CELL COUNT 4.08 M/mm3 (4.52-5.90); WHITE BLOOD CELL COUNT,WBC 6.91 K/mm3 (3.9-11.3)
[2023-07-22] MEDS: Heparin Sodium 5,000 Units/ML Vial SUBCUT SCH ×2 (06:54→14:00)
[2023-07-22] MEDS: predniSONE 20 MG Tab PO SCH (06:54)
[2023-07-22] MEDS: Tamsulosin 0.4 MG Cap.ER PO SCH (08:47)
[2023-07-22] MEDS: Azithromycin 500 MG in Sodium Chloride 0.9% 250 ML IV SCH (12:37)
[2023-07-22] MEDS: cefTRIAXone 2 GM in Sodium Chloride 0.9% 100 ML IV SCH (13:54)
[2023-07-23] MEDS: Heparin Sodium 5,000 Units/ML Vial SUBCUT SCH ×4 (00:02→23:10)
[2023-07-23] MEDS: Albuterol/Ipratropium 3.0-0.5 MG/3 ML Neb Soln NEB SCH ×6 (00:24→20:21)
[2023-07-23] MEDS: Albuterol 0.083% 2.5 MG/3 ML Neb Soln NEB PRN ×5 (04:17→20:22)
[2023-07-23] MEDS: predniSONE 20 MG Tab PO SCH (06:49)
[2023-07-23] MEDS: Docusate Sodium 100 MG Cap PO PRN (07:59)
[2023-07-23] MEDS: Tamsulosin 0.4 MG Cap.ER PO SCH (07:59)
[2023-07-23] MEDS: Azithromycin 500 MG in Sodium Chloride 0.9% 250 ML IV SCH (12:04)
[2023-07-23] MEDS: cefTRIAXone 2 GM in Sodium Chloride 0.9% 100 ML IV SCH (13:13)
[2023-07-24] MEDS: Albuterol 0.083% 2.5 MG/3 ML Neb Soln NEB PRN ×5 (00:22→23:06)
[2023-07-24] MEDS: Albuterol/Ipratropium 3.0-0.5 MG/3 ML Neb Soln NEB SCH ×7 (00:22→23:07)
[2023-07-24] MEDS: Heparin Sodium 5,000 Units/ML Vial SUBCUT SCH ×3 (07:25→22:18)
[2023-07-24] MEDS: predniSONE 20 MG Tab PO SCH (07:25)
[2023-07-24] MEDS: Tamsulosin 0.4 MG Cap.ER PO SCH (08:02)
[2023-07-24] MEDS: Azithromycin 500 MG in Sodium Chloride 0.9% 250 ML IV SCH (12:17)
[2023-07-24] MEDS: Docusate Sodium 100 MG Cap PO PRN (13:25)
[2023-07-24] MEDS: cefTRIAXone 2 GM in Sodium Chloride 0.9% 100 ML IV SCH (13:25)
[2023-07-25] MEDS: Albuterol 0.083% 2.5 MG/3 ML Neb Soln NEB PRN ×2 (04:08→08:33)
[2023-07-25] MEDS: Albuterol/Ipratropium 3.0-0.5 MG/3 ML Neb Soln NEB SCH ×2 (04:09→08:33)
[2023-07-25] MEDS: predniSONE 20 MG Tab PO SCH (06:45)
[2023-07-25] MEDS: Heparin Sodium 5,000 Units/ML Vial SUBCUT SCH (06:45)
[2023-07-25] MEDS: Tamsulosin 0.4 MG Cap.ER PO SCH (09:06)
== END 2023-07-25 11:21 | disposition home or self-care (01) | DRG 193 ==
LOC: JD.ED 09:25 → JD.MS 11:58
PROVIDERS: ADMIT Hospitalist; ATTEND Internal Medicine
DX: J18.9 Pneumonia, unspecified organism (principal); J96.21 Acute and chronic respiratory failure with hypoxia; R09.02 Hypoxemia; J96.22 Acute and chronic respiratory failure with hypercapnia; Z20.822 Contact with and (suspected) exposure to COVID-19; Z66 Do not resuscitate; J44.1 Chronic obstructive pulmonary disease with (acute) exacerbation; J44.0 Chronic obstructive pulmonary disease with (acute) lower respiratory infection; Z79.51 Long term (current) use of inhaled steroids; Z79.899 Other long term (current) drug therapy; Z87.891 Personal history of nicotine dependence; Z98.890 Other specified postprocedural states; Z99.81 Dependence on supplemental oxygen; Z11.52 Encounter for screening for COVID-19
CPT/HCPCS: 0241U; 36415; 71046; 80048; 80053; 81001; 83605; 83735; 85025; 87040; 94640; 94667; 94668; 94761; 94762; 97116; 97162; 99285; 99222; 99232; 99239; 99284; A9270-GY; J0456; J0696; J1644; J2930; J3490; J7050; J7512; J7620-GY

== ENCOUNTER 2023-08-14 07:18 | Inpatient (IN) | payer MEDICARE, OTHER ==
[2023-08-14 07:50] LABS: BASOPHILS PERCENT AUTO 0.3 % (0.0-1.0); EOSINOPHILS PERCENT AUTO 0.1 % (0.0-6.0); HEMATOCRIT 45.7 % (42.0-52.0); HEMOGLOBIN 13.4 gm/dl (14.0-18.0); IMMATURE GRAN ABSOLUTE AUTO 0.04 K/mm3 (0.00-0.05); IMMATURE GRAN PERCENT AUTO 0.5 % (0.0-0.4); LYMPHOCYTES ABSOLUTE AUTO 0.7 K/mm3 (1.0-4.8); LYMPHOCYTES PERCENT AUTO 9.9 % (24.0-44.0); MEAN CORPUSCULAR HEMOGLOBIN 30.6 pg (28.0-32.0); MEAN CORPUSCULAR HGB CONC 29.3 g/dl (32.0-36.0); MEAN CORPUSCULAR VOLUME 104.3 fl (83.0-99.0); MEAN PLATELET VOLUME 10.3 fl (9.4-12.4); MONOCYTES ABSOLUTE AUTO 0.4 K/mm3 (0.0-0.8); MONOCYTES PERCENT AUTO 5.9 % (0.0-8.0); NEUTROPHILS ABSOLUTE AUTO 6.2 K/mm3 (1.8-7.7); NEUTROPHILS PERCENT AUTO 83.3 % (41.0-71.0); PLATELET COUNT,PLT 131 K/mm3 (150-400); RED BLOOD CELL COUNT 4.38 M/mm3 (4.52-5.90); WHITE BLOOD CELL COUNT,WBC 7.46 K/mm3 (3.9-11.3)
[2023-08-14 07:59] LABS: A/G RATIO 1.1 (1-2); ALBUMIN 3.4 g/dl (3.4-5.0); BILIRUBIN TOTAL 0.7 mg/dL (0.2-1.0); BUN/CREATININE RATIO 28.3 (14-18); CREATININE 0.6 mg/dL (0.7-1.3); EST CRCL DRUG DOSING (CG) 118.04 mL/min; POTASSIUM,K 4.8 mEq/L (3.5-5.1); PROTEIN TOTAL,TP 6.6 g/dl (6.4-8.2)
[2023-08-14 08:06] LABS: ANION GAP 4.8 (5-15)
[2023-08-14 08:16] LABS: O2 SATURATION ARTERIAL 99.4 % (96.0-97.0)
[2023-08-14] MEDS ORDERED: oxyCODONE 5 MG Tab PO PRN (09:11)
[2023-08-14] MEDS ORDERED: Acetaminophen 325 MG Tab PO PRN (09:11)
[2023-08-14] MEDS: Fluticasone NASAL Spray 16 GM Bottle NASBOTH SCH ×2 (10:15→20:32)
[2023-08-14] MEDS: Heparin Sodium 5,000 Units/ML Vial SUBCUT SCH ×2 (10:44→19:26)
[2023-08-14] MEDS: methylPREDNISolone Sodium Succinate 125 MG/2 ML SDV IVPUSH SCH ×2 (10:44→19:26)
[2023-08-14] MEDS: Albuterol/Ipratropium 3.0-0.5 MG/3 ML Neb Soln NEB PRN ×3 (11:03→17:55)
[2023-08-14] MEDS: Sodium Chloride 0.9% 1,000 ML IV SCH ×2 (12:15→23:41)
[2023-08-14 14:57] LABS: BASE EXCESS ARTERIAL 15.7 (-2-2.0); BICARBONATE,ARTERIAL 46.8 meq/L (22.0-26.0); O2 SATURATION ARTERIAL 94.6 % (96.0-97.0)
[2023-08-14 14:58] LABS: PCO2 ARTERIAL 102.6 mmHg (35.0-45.0)
[2023-08-14] MEDS: Levalbuterol HCl 1.25 MG/3 ML Neb NEB PRN (20:22)
[2023-08-14] MEDS: Formoterol/Mometasone 200-5 MCG 8.8 GM Inhaler IH SCH (20:22)
[2023-08-14] MEDS: Doxycycline 100 MG in Sodium Chloride 0.9% 100 ML IV SCH (20:33)
[2023-08-15] MEDS: Levalbuterol HCl 1.25 MG/3 ML Neb NEB PRN ×6 (02:12→21:05)
[2023-08-15] MEDS: Heparin Sodium 5,000 Units/ML Vial SUBCUT SCH ×3 (02:34→17:14)
[2023-08-15] MEDS: methylPREDNISolone Sodium Succinate 125 MG/2 ML SDV IVPUSH SCH ×3 (02:34→17:14)
[2023-08-15 06:25] LABS: HEMATOCRIT 41.9 % (42.0-52.0); HEMOGLOBIN 12.7 gm/dl (14.0-18.0); IMMATURE GRAN ABSOLUTE AUTO 0.02 K/mm3 (0.00-0.05); IMMATURE GRAN PERCENT AUTO 0.3 % (0.0-0.4); LYMPHOCYTES ABSOLUTE AUTO 0.3 K/mm3 (1.0-4.8); LYMPHOCYTES PERCENT AUTO 4.9 % (24.0-44.0); MEAN CORPUSCULAR HEMOGLOBIN 30.9 pg (28.0-32.0); MEAN CORPUSCULAR HGB CONC 30.3 g/dl (32.0-36.0); MEAN CORPUSCULAR VOLUME 101.9 fl (83.0-99.0); MEAN PLATELET VOLUME 11.2 fl (9.4-12.4); MONOCYTES ABSOLUTE AUTO 0.1 K/mm3 (0.0-0.8); MONOCYTES PERCENT AUTO 1.7 % (0.0-8.0); NEUTROPHILS ABSOLUTE AUTO 5.5 K/mm3 (1.8-7.7); NEUTROPHILS PERCENT AUTO 93.1 % (41.0-71.0); PLATELET COUNT,PLT 135 K/mm3 (150-400); RED BLOOD CELL COUNT 4.11 M/mm3 (4.52-5.90); WHITE BLOOD CELL COUNT,WBC 5.93 K/mm3 (3.9-11.3)
[2023-08-15 06:47] LABS: A/G RATIO 1.1 (1-2); ALBUMIN 3.4 g/dl (3.4-5.0); ANION GAP 7.3 (5-15); BILIRUBIN TOTAL 0.6 mg/dL (0.2-1.0); BUN/CREATININE RATIO 25.7 (14-18); CREATININE 0.7 mg/dL (0.7-1.3); EST CRCL DRUG DOSING (CG) 93.29 mL/min; POTASSIUM,K 4.3 mEq/L (3.5-5.1); PROTEIN TOTAL,TP 6.4 g/dl (6.4-8.2)
[2023-08-15 07:34] LABS: SLIDE REVIEW ABNORMAL SMEAR
[2023-08-15 08:20] LABS: BASE EXCESS ARTERIAL 11.5 (-2-2.0); BICARBONATE,ARTERIAL 40.7 meq/L (22.0-26.0); O2 SATURATION ARTERIAL 93.6 % (96.0-97.0); PCO2 ARTERIAL 83.7 mmHg (35.0-45.0)
[2023-08-15] MEDS: Doxycycline 100 MG in Sodium Chloride 0.9% 100 ML IV SCH ×2 (08:53→20:13)
[2023-08-15] MEDS: Docusate Sodium 100 MG Cap PO SCH ×2 (08:54→20:06)
[2023-08-15] MEDS: Tamsulosin 0.4 MG Cap.ER PO SCH (08:54)
[2023-08-15] MEDS: Fluticasone NASAL Spray 16 GM Bottle NASBOTH SCH (08:55)
[2023-08-15] MEDS: Tiotropium Bromide 4 GM Inhalation Spray (2.5mcg/1 dose; 10 doses) INH SCH (09:51)
[2023-08-15] MEDS: Formoterol/Mometasone 200-5 MCG 8.8 GM Inhaler IH SCH ×2 (09:51→21:05)
[2023-08-15] MEDS: Sodium Chloride 0.9% 1,000 ML IV SCH ×2 (10:05→20:14)
[2023-08-15] MEDS ORDERED: Nystatin Susp 100,000 Unit/ML 5 ML UD Cup PO PRN (19:17)
[2023-08-16] MEDS: Fluticasone NASAL Spray 16 GM Bottle NASBOTH SCH ×3 (02:03→20:00)
[2023-08-16] MEDS: methylPREDNISolone Sodium Succinate 125 MG/2 ML SDV IVPUSH SCH ×3 (02:07→17:31)
[2023-08-16] MEDS: Heparin Sodium 5,000 Units/ML Vial SUBCUT SCH ×3 (02:07→17:30)
[2023-08-16] MEDS: Levalbuterol HCl 1.25 MG/3 ML Neb NEB PRN ×3 (02:15→21:57)
[2023-08-16] MEDS: Sodium Chloride 0.9% 1,000 ML IV SCH (04:57)
[2023-08-16 05:30] LABS: BASOPHILS PERCENT AUTO 0.1 % (0.0-1.0); HEMOGLOBIN 12.7 gm/dl (14.0-18.0); IMMATURE GRAN ABSOLUTE AUTO 0.05 K/mm3 (0.00-0.05); IMMATURE GRAN PERCENT AUTO 0.4 % (0.0-0.4); LYMPHOCYTES ABSOLUTE AUTO 0.3 K/mm3 (1.0-4.8); LYMPHOCYTES PERCENT AUTO 2.1 % (24.0-44.0); MEAN CORPUSCULAR HEMOGLOBIN 30.5 pg (28.0-32.0); MEAN CORPUSCULAR VOLUME 98.3 fl (83.0-99.0); MONOCYTES ABSOLUTE AUTO 0.3 K/mm3 (0.0-0.8); MONOCYTES PERCENT AUTO 2.2 % (0.0-8.0); NEUTROPHILS ABSOLUTE AUTO 11.8 K/mm3 (1.8-7.7); NEUTROPHILS PERCENT AUTO 95.2 % (41.0-71.0); PLATELET COUNT,PLT 146 K/mm3 (150-400); RED BLOOD CELL COUNT 4.17 M/mm3 (4.52-5.90); WHITE BLOOD CELL COUNT,WBC 12.34 K/mm3 (3.9-11.3)
[2023-08-16 05:38] LABS: A/G RATIO 1.1 (1-2); ALBUMIN 3.3 g/dl (3.4-5.0); ANION GAP 7.3 (5-15); BILIRUBIN TOTAL 0.6 mg/dL (0.2-1.0); BUN/CREATININE RATIO 26.3 (14-18); CALCIUM 8.8 mg/dL (8.5-10.1); CREATININE 0.8 mg/dL (0.7-1.3); EST CRCL DRUG DOSING (CG) 84.05 mL/min; POTASSIUM,K 4.3 mEq/L (3.5-5.1); PROTEIN TOTAL,TP 6.3 g/dl (6.4-8.2)
[2023-08-16 06:18] LABS: SLIDE REVIEW ABNORMAL SMEAR
[2023-08-16] MEDS: Tiotropium Bromide 4 GM Inhalation Spray (2.5mcg/1 dose; 10 doses) INH SCH (08:35)
[2023-08-16] MEDS: Formoterol/Mometasone 200-5 MCG 8.8 GM Inhaler IH SCH ×2 (08:35→20:48)
[2023-08-16] MEDS: Docusate Sodium 100 MG Cap PO SCH ×2 (08:51→20:00)
[2023-08-16] MEDS: Doxycycline 100 MG in Sodium Chloride 0.9% 100 ML IV SCH ×2 (08:51→20:01)
[2023-08-16] MEDS: Tamsulosin 0.4 MG Cap.ER PO SCH (08:52)
[2023-08-17] MEDS: Heparin Sodium 5,000 Units/ML Vial SUBCUT SCH ×3 (02:14→17:19)
[2023-08-17] MEDS: methylPREDNISolone Sodium Succinate 125 MG/2 ML SDV IVPUSH SCH ×3 (02:14→17:20)
[2023-08-17 05:44] LABS: HEMOGLOBIN 11.7 gm/dl (14.0-18.0); IMMATURE GRAN ABSOLUTE AUTO 0.05 K/mm3 (0.00-0.05); IMMATURE GRAN PERCENT AUTO 0.6 % (0.0-0.4); LYMPHOCYTES ABSOLUTE AUTO 0.2 K/mm3 (1.0-4.8); LYMPHOCYTES PERCENT AUTO 2.7 % (24.0-44.0); MEAN CORPUSCULAR HEMOGLOBIN 30.7 pg (28.0-32.0); MEAN CORPUSCULAR HGB CONC 30.8 g/dl (32.0-36.0); MEAN CORPUSCULAR VOLUME 99.7 fl (83.0-99.0); MEAN PLATELET VOLUME 10.9 fl (9.4-12.4); MONOCYTES ABSOLUTE AUTO 0.3 K/mm3 (0.0-0.8); MONOCYTES PERCENT AUTO 3.4 % (0.0-8.0); NEUTROPHILS PERCENT AUTO 93.3 % (41.0-71.0); PLATELET COUNT,PLT 110 K/mm3 (150-400); RED BLOOD CELL COUNT 3.81 M/mm3 (4.52-5.90); WHITE BLOOD CELL COUNT,WBC 8.57 K/mm3 (3.9-11.3)
[2023-08-17 05:51] LABS: A/G RATIO 1.1 (1-2); ALBUMIN 2.8 g/dl (3.4-5.0); ANION GAP 5.1 (5-15); BILIRUBIN TOTAL 0.6 mg/dL (0.2-1.0); CALCIUM 8.5 mg/dL (8.5-10.1); CREATININE 0.5 mg/dL (0.7-1.3); EST CRCL DRUG DOSING (CG) 133.55 mL/min; POTASSIUM,K 4.1 mEq/L (3.5-5.1); PROTEIN TOTAL,TP 5.3 g/dl (6.4-8.2)
[2023-08-17 07:40] LABS: SLIDE REVIEW ABNORMAL SMEAR
[2023-08-17] MEDS: Fluticasone NASAL Spray 16 GM Bottle NASBOTH SCH ×2 (08:41→20:58)
[2023-08-17] MEDS: Docusate Sodium 100 MG Cap PO SCH ×2 (08:41→20:58)
[2023-08-17] MEDS: Tamsulosin 0.4 MG Cap.ER PO SCH (08:41)
[2023-08-17] MEDS: Doxycycline 100 MG in Sodium Chloride 0.9% 100 ML IV SCH ×2 (08:42→20:57)
[2023-08-17] MEDS: Levalbuterol HCl 1.25 MG/3 ML Neb NEB PRN (09:19)
[2023-08-17] MEDS: Tiotropium Bromide 4 GM Inhalation Spray (2.5mcg/1 dose; 10 doses) INH SCH (09:20)
[2023-08-17] MEDS: Formoterol/Mometasone 200-5 MCG 8.8 GM Inhaler IH SCH ×2 (09:20→20:06)
[2023-08-18] MEDS: methylPREDNISolone Sodium Succinate 125 MG/2 ML SDV IVPUSH SCH ×3 (00:52→09:04)
[2023-08-18] MEDS: Heparin Sodium 5,000 Units/ML Vial SUBCUT SCH ×3 (00:52→09:04)
[2023-08-18 05:27] LABS: HEMATOCRIT 38.2 % (42.0-52.0); HEMOGLOBIN 11.9 gm/dl (14.0-18.0); IMMATURE GRAN ABSOLUTE AUTO 0.04 K/mm3 (0.00-0.05); IMMATURE GRAN PERCENT AUTO 0.5 % (0.0-0.4); LYMPHOCYTES ABSOLUTE AUTO 0.2 K/mm3 (1.0-4.8); LYMPHOCYTES PERCENT AUTO 2.3 % (24.0-44.0); MEAN CORPUSCULAR HEMOGLOBIN 30.4 pg (28.0-32.0); MEAN CORPUSCULAR HGB CONC 31.2 g/dl (32.0-36.0); MEAN CORPUSCULAR VOLUME 97.7 fl (83.0-99.0); MEAN PLATELET VOLUME 11.1 fl (9.4-12.4); MONOCYTES ABSOLUTE AUTO 0.3 K/mm3 (0.0-0.8); MONOCYTES PERCENT AUTO 3.5 % (0.0-8.0); NEUTROPHILS ABSOLUTE AUTO 8.1 K/mm3 (1.8-7.7); NEUTROPHILS PERCENT AUTO 93.7 % (41.0-71.0); PLATELET COUNT,PLT 99 K/mm3 (150-400); RED BLOOD CELL COUNT 3.91 M/mm3 (4.52-5.90); WHITE BLOOD CELL COUNT,WBC 8.64 K/mm3 (3.9-11.3)
[2023-08-18 05:43] LABS: ANION GAP 2.1 (5-15); BUN/CREATININE RATIO 38.3 (14-18); CALCIUM 8.4 mg/dL (8.5-10.1); CREATININE 0.6 mg/dL (0.7-1.3); EST CRCL DRUG DOSING (CG) 110.6 mL/min; POTASSIUM,K 4.1 mEq/L (3.5-5.1)
[2023-08-18 06:40] LABS: SLIDE REVIEW ABNORMAL SMEAR
[2023-08-18] MEDS: Doxycycline 100 MG in Sodium Chloride 0.9% 100 ML IV SCH (08:54)
[2023-08-18] MEDS: Docusate Sodium 100 MG Cap PO SCH (08:55)
[2023-08-18] MEDS: Tamsulosin 0.4 MG Cap.ER PO SCH (08:55)
[2023-08-18] MEDS: Tiotropium Bromide 4 GM Inhalation Spray (2.5mcg/1 dose; 10 doses) INH SCH (09:09)
[2023-08-18] MEDS: Formoterol/Mometasone 200-5 MCG 8.8 GM Inhaler IH SCH (09:09)
== END 2023-08-18 12:20 | disposition home or self-care (01) | DRG 189 ==
LOC: JD.ED 07:18 → JD.ICU 09:11 → JD.MS 08-17 10:26
PROVIDERS: ADMIT Internal Medicine; ATTEND Internal Medicine
PROC: 4A133R1 Monitoring of Arterial Saturation, Peripheral, Percutaneous Approach (ICD-10-PCS; principal; 2023-08-14)
PROC: 5A09457 Assistance with Respiratory Ventilation, 24-96 Consecutive Hours, Continuous Positive Airway Pressure (ICD-10-PCS; 2023-08-15)
DX: J96.21 Acute and chronic respiratory failure with hypoxia (principal); G92.9 Unspecified toxic encephalopathy; J44.1 Chronic obstructive pulmonary disease with (acute) exacerbation; J96.22 Acute and chronic respiratory failure with hypercapnia; Z66 Do not resuscitate; F41.9 Anxiety disorder, unspecified; F32.A Depression, unspecified; Z98.890 Other specified postprocedural states; J96.92 Respiratory failure, unspecified with hypercapnia; Z99.81 Dependence on supplemental oxygen; J44.9 Chronic obstructive pulmonary disease, unspecified; Z79.899 Other long term (current) drug therapy
CPT/HCPCS: 36415; 36600; 71045; 71045-26; 80048; 80053; 82803; 83735; 85025; 94640; 94660; 94667; 94668; 94760; 94761; 97116-GP; 97162-GP; 99285; A9270-GY; J1644; J2930; J3490; J7030; J7612-GY; J7620-GY

== ENCOUNTER 2023-11-26 09:55 | Inpatient (IN) | payer MEDICARE, OTHER ==
[2023-11-26] MEDS: Sodium Chloride 0.9% 10 ML Syringe FLUSH PRN (11:10)
[2023-11-26 11:16] LABS: BASOPHILS PERCENT AUTO 0.1 % (0.0-1.0); EOSINOPHILS PERCENT AUTO 0.3 % (0.0-6.0); HEMATOCRIT 47.6 % (42.0-52.0); IMMATURE GRAN ABSOLUTE AUTO 0.01 K/mm3 (0.00-0.05); IMMATURE GRAN PERCENT AUTO 0.1 % (0.0-0.4); LYMPHOCYTES ABSOLUTE AUTO 0.8 K/mm3 (1.0-4.8); LYMPHOCYTES PERCENT AUTO 10.5 % (24.0-44.0); MEAN CORPUSCULAR HGB CONC 29.2 g/dl (32.0-36.0); MEAN PLATELET VOLUME 10.2 fl (9.4-12.4); MONOCYTES ABSOLUTE AUTO 0.5 K/mm3 (0.0-0.8); MONOCYTES PERCENT AUTO 7.2 % (0.0-8.0); NEUTROPHILS ABSOLUTE AUTO 6.1 K/mm3 (1.8-7.7); NEUTROPHILS PERCENT AUTO 81.8 % (41.0-71.0); PLATELET COUNT,PLT 119 K/mm3 (150-400); RED BLOOD CELL COUNT 4.49 M/mm3 (4.52-5.90); WHITE BLOOD CELL COUNT,WBC 7.41 K/mm3 (3.9-11.3)
[2023-11-26 11:18] LABS: HEMOGLOBIN 13.9 gm/dl (14.0-18.0)
[2023-11-26 11:45] LABS: A/G RATIO 1.3 (1-2); ALBUMIN 3.5 g/dl (3.4-5.0); BILIRUBIN TOTAL 0.6 mg/dL (0.2-1.0); BUN/CREATININE RATIO 26.7 (14-18); CALCIUM 9.1 mg/dL (8.5-10.1); CREATININE 0.6 mg/dL (0.7-1.3); EST CRCL DRUG DOSING (CG) 107.31 mL/min; POTASSIUM,K 4.4 mEq/L (3.5-5.1); PROTEIN TOTAL,TP 6.2 g/dl (6.4-8.2)
[2023-11-26 11:49] LABS: LACTIC ACID 0.5 mmol/L (0.4-2.0)
[2023-11-26 12:14] LABS: ANION GAP -2.6 (5-15)
[2023-11-26 12:23] LABS: BASE EXCESS ARTERIAL 16.7 (-2-2.0); BICARBONATE,ARTERIAL 50.8 meq/L (22.0-26.0)
[2023-11-26 12:24] LABS: PCO2 ARTERIAL 132.3 mmHg (35.0-45.0)
[2023-11-26 12:42] LABS: CORONAVIRUS COVID-19 NAA NEGATIVE (NEGATIVE); INFLUENZA A NAA NEGATIVE (NEGATIVE); RESPIRATORY SYNCYTIAL VIR NAA NEGATIVE (NEGATIVE)
[2023-11-26] MEDS ORDERED: Nystatin Susp 100,000 Unit/ML 5 ML UD Cup PO PRN (17:25)
[2023-11-26] MEDS: Levalbuterol HCl 1.25 MG/3 ML Neb NEB SCH (17:55)
[2023-11-26] MEDS: Pantoprazole 40 MG Vial IVPUSH ONE (18:17)
[2023-11-26] MEDS: Formoterol/Mometasone 200-5 MCG 8.8 GM Inhaler IH SCH (21:03)
[2023-11-26] MEDS: Pantoprazole 40 MG Vial ONE (21:14)
[2023-11-27 06:22] LABS: A/G RATIO 1.3 (1-2); ALBUMIN 3.3 g/dl (3.4-5.0); BILIRUBIN TOTAL 0.7 mg/dL (0.2-1.0); CALCIUM 9.6 mg/dL (8.5-10.1); CREATININE 0.7 mg/dL (0.7-1.3); EST CRCL DRUG DOSING (CG) 91.72 mL/min; PROTEIN TOTAL,TP 5.8 g/dl (6.4-8.2)
[2023-11-27] MEDS: predniSONE 20 MG Tab PO SCH ×3 (06:29→09:49)
[2023-11-27 06:36] LABS: BASE EXCESS ARTERIAL 17.1 (-2-2.0); O2 SATURATION ARTERIAL 95.5 % (96.0-97.0)
[2023-11-27 06:37] LABS: BASOPHILS PERCENT AUTO 0.2 % (0.0-1.0); EOSINOPHILS ABSOLUTE AUTO 0.1 K/mm3 (0.0-0.4); EOSINOPHILS PERCENT AUTO 1.4 % (0.0-6.0); HEMATOCRIT 45.4 % (42.0-52.0); HEMOGLOBIN 13.2 gm/dl (14.0-18.0); IMMATURE GRAN ABSOLUTE AUTO 0.02 K/mm3 (0.00-0.05); IMMATURE GRAN PERCENT AUTO 0.2 % (0.0-0.4); LYMPHOCYTES ABSOLUTE AUTO 1.1 K/mm3 (1.0-4.8); LYMPHOCYTES PERCENT AUTO 12.9 % (24.0-44.0); MEAN CORPUSCULAR HEMOGLOBIN 30.5 pg (28.0-32.0); MEAN CORPUSCULAR HGB CONC 29.1 g/dl (32.0-36.0); MEAN CORPUSCULAR VOLUME 104.8 fl (83.0-99.0); MONOCYTES ABSOLUTE AUTO 0.9 K/mm3 (0.0-0.8); MONOCYTES PERCENT AUTO 9.9 % (0.0-8.0); NEUTROPHILS ABSOLUTE AUTO 6.5 K/mm3 (1.8-7.7); NEUTROPHILS PERCENT AUTO 75.4 % (41.0-71.0); PLATELET COUNT,PLT 125 K/mm3 (150-400); RED BLOOD CELL COUNT 4.33 M/mm3 (4.52-5.90); WHITE BLOOD CELL COUNT,WBC 8.62 K/mm3 (3.9-11.3)
[2023-11-27 06:39] LABS: PCO2 ARTERIAL 111.5 mmHg (35.0-45.0)
[2023-11-27 06:51] LABS: POTASSIUM,K 6.2 mEq/L (3.5-5.1)
[2023-11-27 06:52] LABS: ANION GAP 1.2 (5-15)
[2023-11-27] MEDS: Sodium Polystyrene Sulfonate 15 GM/60 ML Susp 60 ML Bot PO ONE (07:52)
[2023-11-27] MEDS: Tamsulosin 0.4 MG Cap.ER PO SCH (08:25)
[2023-11-27] MEDS: Enoxaparin 40 MG/0.4 ML Syringe SUBCUT SCH (08:25)
[2023-11-27 08:50] LABS: SLIDE REVIEW ABNORMAL SMEAR
[2023-11-27] MEDS: Tiotropium Bromide 4 GM Inhalation Spray (2.5mcg/1 dose; 10 doses) INH SCH (08:56)
[2023-11-27] MEDS: Furosemide 20 MG Tab PO SCH (11:38)
[2023-11-27] MEDS ORDERED: Furosemide 20 MG Tab PO SCH (12:15)
[2023-11-27 12:29] LABS: CALCIUM 9.3 mg/dL (8.5-10.1); CREATININE 0.5 mg/dL (0.7-1.3); EST CRCL DRUG DOSING (CG) 128.4 mL/min
[2023-11-27 12:45] LABS: ANION GAP 0.3 (5-15)
[2023-11-27 12:47] LABS: POTASSIUM,K 4.3 mEq/L (3.5-5.1)
[2023-11-27] MEDS: Ipratropium 0.02% 0.5 MG/2.5 ML Neb Soln NEB SCH (18:33)
[2023-11-28 05:16] LABS: BASE EXCESS ARTERIAL 18.5 (-2-2.0); BICARBONATE,ARTERIAL 48.9 meq/L (22.0-26.0); O2 SATURATION ARTERIAL 96.6 % (96.0-97.0)
[2023-11-28 06:24] LABS: A/G RATIO 1.3 (1-2); BILIRUBIN TOTAL 0.8 mg/dL (0.2-1.0); CALCIUM 9.1 mg/dL (8.5-10.1); CREATININE 0.5 mg/dL (0.7-1.3); EST CRCL DRUG DOSING (CG) 127.85 mL/min; MAGNESIUM 1.9 mg/dL (1.8-2.4); PROTEIN TOTAL,TP 5.4 g/dl (6.4-8.2)
[2023-11-28 06:32] LABS: BASOPHILS PERCENT AUTO 0.4 % (0.0-1.0); EOSINOPHILS ABSOLUTE AUTO 0.1 K/mm3 (0.0-0.4); HEMOGLOBIN 12.7 gm/dl (14.0-18.0); IMMATURE GRAN ABSOLUTE AUTO 0.02 K/mm3 (0.00-0.05); IMMATURE GRAN PERCENT AUTO 0.3 % (0.0-0.4); LYMPHOCYTES ABSOLUTE AUTO 1.1 K/mm3 (1.0-4.8); LYMPHOCYTES PERCENT AUTO 15.9 % (24.0-44.0); MEAN CORPUSCULAR HEMOGLOBIN 31.4 pg (28.0-32.0); MEAN CORPUSCULAR HGB CONC 30.2 g/dl (32.0-36.0); MEAN CORPUSCULAR VOLUME 103.7 fl (83.0-99.0); MEAN PLATELET VOLUME 10.6 fl (9.4-12.4); MONOCYTES ABSOLUTE AUTO 0.7 K/mm3 (0.0-0.8); NEUTROPHILS PERCENT AUTO 72.4 % (41.0-71.0); PLATELET COUNT,PLT 122 K/mm3 (150-400); RED BLOOD CELL COUNT 4.05 M/mm3 (4.52-5.90); WHITE BLOOD CELL COUNT,WBC 6.91 K/mm3 (3.9-11.3)
[2023-11-28] MEDS: Pantoprazole 40 MG Tab.CR PO SCH (08:11)
[2023-11-28] MEDS: guaiFENesin 600 MG Tab.ER PO ONE (11:42)
[2023-11-28] MEDS: Levalbuterol HCl 1.25 MG/3 ML Neb NEB SCH (13:59)
[2023-11-28] MEDS: Ipratropium 0.02% 0.5 MG/2.5 ML Neb Soln NEB SCH (17:37)
[2023-11-28] MEDS: guaiFENesin 600 MG Tab.ER PO SCH (20:44)
[2023-11-29 04:38] LABS: BASE EXCESS ARTERIAL 18.7 (-2-2.0); BICARBONATE,ARTERIAL 50.6 meq/L (22.0-26.0); O2 SATURATION ARTERIAL 83.4 % (96.0-97.0); PCO2 ARTERIAL 107.4 mmHg (35.0-45.0)
[2023-11-29 04:54] LABS: BASOPHILS PERCENT AUTO 0.3 % (0.0-1.0); EOSINOPHILS PERCENT AUTO 0.6 % (0.0-6.0); HEMATOCRIT 42.6 % (42.0-52.0); HEMOGLOBIN 12.9 gm/dl (14.0-18.0); IMMATURE GRAN ABSOLUTE AUTO 0.01 K/mm3 (0.00-0.05); IMMATURE GRAN PERCENT AUTO 0.1 % (0.0-0.4); LYMPHOCYTES ABSOLUTE AUTO 1.1 K/mm3 (1.0-4.8); LYMPHOCYTES PERCENT AUTO 15.5 % (24.0-44.0); MEAN CORPUSCULAR HEMOGLOBIN 31.1 pg (28.0-32.0); MEAN CORPUSCULAR HGB CONC 30.3 g/dl (32.0-36.0); MEAN CORPUSCULAR VOLUME 102.7 fl (83.0-99.0); MEAN PLATELET VOLUME 10.4 fl (9.4-12.4); MONOCYTES ABSOLUTE AUTO 0.8 K/mm3 (0.0-0.8); MONOCYTES PERCENT AUTO 10.8 % (0.0-8.0); NEUTROPHILS ABSOLUTE AUTO 5.1 K/mm3 (1.8-7.7); NEUTROPHILS PERCENT AUTO 72.7 % (41.0-71.0); PLATELET COUNT,PLT 110 K/mm3 (150-400); RED BLOOD CELL COUNT 4.15 M/mm3 (4.52-5.90); WHITE BLOOD CELL COUNT,WBC 7.03 K/mm3 (3.9-11.3)
[2023-11-29 05:32] LABS: A/G RATIO 1.3 (1-2); ALBUMIN 3.1 g/dl (3.4-5.0); BILIRUBIN TOTAL 0.7 mg/dL (0.2-1.0); CALCIUM 9.3 mg/dL (8.5-10.1); CREATININE 0.5 mg/dL (0.7-1.3); MAGNESIUM 1.8 mg/dL (1.8-2.4); POTASSIUM,K 3.8 mEq/L (3.5-5.1); PROTEIN TOTAL,TP 5.5 g/dl (6.4-8.2)
[2023-11-29 06:11] LABS: ANION GAP 3.8 (5-15); EST CRCL DRUG DOSING (CG) 127.48 mL/min
[2023-11-29] MEDS: Magnesium Sulfate/Water 2 GM in Premix Bag 1 BAG IV ONE (09:43)
== END 2023-11-29 15:20 | disposition home or self-care (01) | DRG 189 ==
LOC: JD.ED 09:55 → JD.ICU 14:27
PROVIDERS: ADMIT Pediatrics; ATTEND Internal Medicine
PROC: 5A09457 Assistance with Respiratory Ventilation, 24-96 Consecutive Hours, Continuous Positive Airway Pressure (ICD-10-PCS; principal; 2023-11-26)
PROC: 4A133R1 Monitoring of Arterial Saturation, Peripheral, Percutaneous Approach (ICD-10-PCS; 2023-11-26)
DX: J96.21 Acute and chronic respiratory failure with hypoxia (principal); G92.9 Unspecified toxic encephalopathy; J44.9 Chronic obstructive pulmonary disease, unspecified; J44.0 Chronic obstructive pulmonary disease with (acute) lower respiratory infection; Z68.1 Body mass index [BMI] 19.9 or less, adult; J44.1 Chronic obstructive pulmonary disease with (acute) exacerbation; J96.22 Acute and chronic respiratory failure with hypercapnia; J43.9 Emphysema, unspecified; F41.9 Anxiety disorder, unspecified; F32.A Depression, unspecified; Z66 Do not resuscitate; E88.A Wasting disease (syndrome) due to underlying condition; N40.0 Benign prostatic hyperplasia without lower urinary tract symptoms; E87.5 Hyperkalemia; Z79.51 Long term (current) use of inhaled steroids; Z79.899 Other long term (current) drug therapy; Z87.81 Personal history of (healed) traumatic fracture; Z98.890 Other specified postprocedural states; Z87.891 Personal history of nicotine dependence; Z99.81 Dependence on supplemental oxygen; Z87.09 Personal history of other diseases of the respiratory system
CPT/HCPCS: 0241U; 36415; 36600; 71250; 80048; 80053; 82803; 83605; 83735; 85025; 93005; 94640; 94660; 94667; 97110; 97161; 97530; 99285; 93010; A9270-GY; C9113; J1650; J3475; J3490; J7512; J7612-GY

== ENCOUNTER 2023-12-15 13:45 | Inpatient (IN) | payer MEDICARE, OTHER ==
[2023-12-15] MEDS: methylPREDNISolone Sodium Succinate 125 MG/2 ML SDV IVPUSH ONE (14:19)
[2023-12-15] MEDS: Albuterol/Ipratropium 3.0-0.5 MG/3 ML Neb Soln NEB PRN (14:56)
[2023-12-15 15:09] LABS: BASOPHILS PERCENT AUTO 0.1 % (0.0-1.0); HEMATOCRIT 47.1 % (42.0-52.0); HEMOGLOBIN 13.7 gm/dl (14.0-18.0); IMMATURE GRAN ABSOLUTE AUTO 0.03 K/mm3 (0.00-0.05); IMMATURE GRAN PERCENT AUTO 0.3 % (0.0-0.4); LYMPHOCYTES ABSOLUTE AUTO 0.9 K/mm3 (1.0-4.8); LYMPHOCYTES PERCENT AUTO 8.1 % (24.0-44.0); MEAN CORPUSCULAR HEMOGLOBIN 30.9 pg (28.0-32.0); MEAN CORPUSCULAR HGB CONC 29.1 g/dl (32.0-36.0); MEAN PLATELET VOLUME 10.6 fl (9.4-12.4); MONOCYTES ABSOLUTE AUTO 0.5 K/mm3 (0.0-0.8); MONOCYTES PERCENT AUTO 4.6 % (0.0-8.0); NEUTROPHILS ABSOLUTE AUTO 9.4 K/mm3 (1.8-7.7); NEUTROPHILS PERCENT AUTO 86.9 % (41.0-71.0); PLATELET COUNT,PLT 137 K/mm3 (150-400); RED BLOOD CELL COUNT 4.44 M/mm3 (4.52-5.90); WHITE BLOOD CELL COUNT,WBC 10.76 K/mm3 (3.9-11.3)
[2023-12-15 15:10] LABS: MEAN CORPUSCULAR VOLUME 106.1 fl (83.0-99.0)
[2023-12-15 15:15] LABS: BASE EXCESS VENOUS 20.1 (-4.0-2.0); O2 SATURATION VENOUS 71.5; PCO2 VENOUS 130.9 mmHg (41-51); PH,VENOUS 7.24 (7.30-7.40)
[2023-12-15] MEDS: methylPREDNISolone Sodium Succinate 125 MG/2 ML SDV IM ONE (15:25)
[2023-12-15 15:43] LABS: A/G RATIO 1.3 (1-2); ALBUMIN 3.8 g/dl (3.4-5.0); BILIRUBIN TOTAL 0.8 mg/dL (0.2-1.0); BUN/CREATININE RATIO 28.6 (14-18); CALCIUM 9.5 mg/dL (8.5-10.1); CREATININE 0.7 mg/dL (0.7-1.3); EST CRCL DRUG DOSING (CG) 98.55 mL/min; POTASSIUM,K 4.5 mEq/L (3.5-5.1); PROTEIN TOTAL,TP 6.7 g/dl (6.4-8.2)
[2023-12-15 15:56] LABS: ANION GAP 6.5 (5-15)
[2023-12-15] MEDS: Sodium Chloride 0.9% 500 ML IV ONE (16:20)
[2023-12-15] MEDS: Albuterol 0.042% 1.25 MG/3 ML Neb Soln NEB ONE (16:30)
[2023-12-15] MEDS ORDERED: oxyCODONE 5 MG Tab PO PRN (17:07)
[2023-12-15] MEDS ORDERED: Acetaminophen 325 MG Tab PO PRN (17:07)
[2023-12-15 17:08] LABS: BASE EXCESS ARTERIAL 18.6 (-2-2.0); BICARBONATE,ARTERIAL 52.7 meq/L (22.0-26.0); O2 SATURATION ARTERIAL 93.4 % (96.0-97.0); PCO2 ARTERIAL 129.3 mmHg (35.0-45.0)
[2023-12-15] MEDS ORDERED: Levalbuterol HCl 1.25 MG/3 ML Neb NEB SCH (18:00)
[2023-12-15] MEDS ORDERED: Albuterol 0.083% 2.5 MG/3 ML Neb Soln INH SCH (18:00)
[2023-12-15] MEDS ORDERED: Albuterol 0.083% 2.5 MG/3 ML Neb Soln NEB PRN (18:05)
[2023-12-15] MEDS: Azithromycin 500 MG in Sodium Chloride 0.9% 250 ML IV SCH (18:09)
[2023-12-15] MEDS: Heparin Sodium 5,000 Units/ML Vial SUBCUT SCH (18:09)
[2023-12-15] MEDS ORDERED: Non-Formulary Medication 1 Each (Budesonide/Formoterol Fumarate [Symbicort 160-4.5 Mcg Inh PO SCH (21:00)
[2023-12-15] MEDS: Levalbuterol HCl 1.25 MG/3 ML Neb NEB SCH (22:00)
[2023-12-15] MEDS: Formoterol/Mometasone 100-5 MCG 8.8 GM Inhaler IH SCH (22:20)
[2023-12-15] MEDS: methylPREDNISolone Sodium Succinate 125 MG/2 ML SDV IVPUSH SCH (22:28)
[2023-12-15] MEDS: Sodium Chloride 0.9% 1,000 ML IV SCH (23:45)
[2023-12-16 05:38] LABS: HEMATOCRIT 40.5 % (42.0-52.0); IMMATURE GRAN ABSOLUTE AUTO 0.01 K/mm3 (0.00-0.05); IMMATURE GRAN PERCENT AUTO 0.2 % (0.0-0.4); LYMPHOCYTES ABSOLUTE AUTO 0.3 K/mm3 (1.0-4.8); LYMPHOCYTES PERCENT AUTO 7.1 % (24.0-44.0); MEAN CORPUSCULAR HEMOGLOBIN 30.6 pg (28.0-32.0); MEAN CORPUSCULAR HGB CONC 29.6 g/dl (32.0-36.0); MEAN CORPUSCULAR VOLUME 103.3 fl (83.0-99.0); MEAN PLATELET VOLUME 10.8 fl (9.4-12.4); MONOCYTES PERCENT AUTO 0.9 % (0.0-8.0); NEUTROPHILS PERCENT AUTO 91.8 % (41.0-71.0); PLATELET COUNT,PLT 118 K/mm3 (150-400); RED BLOOD CELL COUNT 3.92 M/mm3 (4.52-5.90); WHITE BLOOD CELL COUNT,WBC 4.34 K/mm3 (3.9-11.3)
[2023-12-16 05:58] LABS: A/G RATIO 1.3 (1-2); ALBUMIN 3.1 g/dl (3.4-5.0); BILIRUBIN TOTAL 0.7 mg/dL (0.2-1.0); BUN/CREATININE RATIO 33.3 (14-18); CREATININE 0.6 mg/dL (0.7-1.3); EST CRCL DRUG DOSING (CG) 114.28 mL/min; PROTEIN TOTAL,TP 5.5 g/dl (6.4-8.2)
[2023-12-16 06:08] LABS: SLIDE REVIEW ABNORMAL SMEAR
[2023-12-16 06:25] LABS: BASE EXCESS ARTERIAL 17.4 (-2-2.0); BICARBONATE,ARTERIAL 47.5 meq/L (22.0-26.0); O2 SATURATION ARTERIAL 94.6 % (96.0-97.0)
[2023-12-16 06:26] LABS: PCO2 ARTERIAL 97.9 mmHg (35.0-45.0)
[2023-12-16] MEDS: Tamsulosin 0.4 MG Cap.ER PO SCH (08:23)
[2023-12-16] MEDS: Furosemide 20 MG Tab PO SCH (08:23)
[2023-12-16] MEDS: Tiotropium Bromide 4 GM Inhalation Spray (2.5mcg/1 dose; 10 doses) INH SCH (08:52)
[2023-12-17 05:48] LABS: HEMATOCRIT 38.8 % (42.0-52.0); HEMOGLOBIN 11.6 gm/dl (14.0-18.0); IMMATURE GRAN ABSOLUTE AUTO 0.04 K/mm3 (0.00-0.05); IMMATURE GRAN PERCENT AUTO 0.4 % (0.0-0.4); LYMPHOCYTES ABSOLUTE AUTO 0.3 K/mm3 (1.0-4.8); LYMPHOCYTES PERCENT AUTO 3.1 % (24.0-44.0); MEAN CORPUSCULAR HEMOGLOBIN 30.6 pg (28.0-32.0); MEAN CORPUSCULAR HGB CONC 29.9 g/dl (32.0-36.0); MEAN CORPUSCULAR VOLUME 102.4 fl (83.0-99.0); MEAN PLATELET VOLUME 10.9 fl (9.4-12.4); MONOCYTES ABSOLUTE AUTO 0.4 K/mm3 (0.0-0.8); MONOCYTES PERCENT AUTO 3.5 % (0.0-8.0); NEUTROPHILS ABSOLUTE AUTO 9.4 K/mm3 (1.8-7.7); PLATELET COUNT,PLT 111 K/mm3 (150-400); RED BLOOD CELL COUNT 3.79 M/mm3 (4.52-5.90); WHITE BLOOD CELL COUNT,WBC 10.12 K/mm3 (3.9-11.3)
[2023-12-17 06:06] LABS: ANION GAP 0.5 (5-15); BUN/CREATININE RATIO 33.3 (14-18); CALCIUM 8.5 mg/dL (8.5-10.1); CREATININE 0.6 mg/dL (0.7-1.3); EST CRCL DRUG DOSING (CG) 114.21 mL/min; POTASSIUM,K 4.5 mEq/L (3.5-5.1)
[2023-12-17 06:53] LABS: SLIDE REVIEW ABNORMAL SMEAR
[2023-12-17] MEDS: Hyaluronidase, Human Recombinant 150 Units/1 ML SDV SUBCUT ONE (19:44)
[2023-12-18 06:28] LABS: HEMATOCRIT 41.3 % (42.0-52.0); HEMOGLOBIN 12.5 gm/dl (14.0-18.0); IMMATURE GRAN ABSOLUTE AUTO 0.04 K/mm3 (0.00-0.05); IMMATURE GRAN PERCENT AUTO 0.4 % (0.0-0.4); LYMPHOCYTES ABSOLUTE AUTO 0.4 K/mm3 (1.0-4.8); LYMPHOCYTES PERCENT AUTO 3.9 % (24.0-44.0); MEAN CORPUSCULAR HEMOGLOBIN 30.9 pg (28.0-32.0); MEAN CORPUSCULAR HGB CONC 30.3 g/dl (32.0-36.0); MEAN CORPUSCULAR VOLUME 102.2 fl (83.0-99.0); MONOCYTES ABSOLUTE AUTO 0.4 K/mm3 (0.0-0.8); MONOCYTES PERCENT AUTO 3.9 % (0.0-8.0); NEUTROPHILS ABSOLUTE AUTO 8.5 K/mm3 (1.8-7.7); NEUTROPHILS PERCENT AUTO 91.8 % (41.0-71.0); PLATELET COUNT,PLT 118 K/mm3 (150-400); RED BLOOD CELL COUNT 4.04 M/mm3 (4.52-5.90)
[2023-12-18 06:47] LABS: BUN/CREATININE RATIO 33.3 (14-18); CALCIUM 8.7 mg/dL (8.5-10.1); CREATININE 0.6 mg/dL (0.7-1.3); EST CRCL DRUG DOSING (CG) 117.73 mL/min; POTASSIUM,K 4.4 mEq/L (3.5-5.1)
[2023-12-18 06:59] LABS: SLIDE REVIEW ABNORMAL SMEAR
[2023-12-18 07:00] LABS: ANION GAP 3.4 (5-15)
[2023-12-19 05:51] LABS: HEMATOCRIT 38.3 % (42.0-52.0); HEMOGLOBIN 11.7 gm/dl (14.0-18.0); IMMATURE GRAN ABSOLUTE AUTO 0.04 K/mm3 (0.00-0.05); IMMATURE GRAN PERCENT AUTO 0.5 % (0.0-0.4); LYMPHOCYTES ABSOLUTE AUTO 0.2 K/mm3 (1.0-4.8); LYMPHOCYTES PERCENT AUTO 2.2 % (24.0-44.0); MEAN CORPUSCULAR HEMOGLOBIN 30.9 pg (28.0-32.0); MEAN CORPUSCULAR HGB CONC 30.5 g/dl (32.0-36.0); MEAN CORPUSCULAR VOLUME 101.1 fl (83.0-99.0); MEAN PLATELET VOLUME 10.7 fl (9.4-12.4); MONOCYTES ABSOLUTE AUTO 0.3 K/mm3 (0.0-0.8); MONOCYTES PERCENT AUTO 4.1 % (0.0-8.0); NEUTROPHILS ABSOLUTE AUTO 7.2 K/mm3 (1.8-7.7); NEUTROPHILS PERCENT AUTO 93.2 % (41.0-71.0); PLATELET COUNT,PLT 98 K/mm3 (150-400); RED BLOOD CELL COUNT 3.79 M/mm3 (4.52-5.90); WHITE BLOOD CELL COUNT,WBC 7.74 K/mm3 (3.9-11.3)
[2023-12-19 06:43] LABS: SLIDE REVIEW ABNORMAL SMEAR
[2023-12-19 07:24] LABS: BUN/CREATININE RATIO 31.4 (14-18); CALCIUM 8.9 mg/dL (8.5-10.1); CREATININE 0.7 mg/dL (0.7-1.3); EST CRCL DRUG DOSING (CG) 101.18 mL/min; MAGNESIUM 1.9 mg/dL (1.8-2.4); POTASSIUM,K 4.3 mEq/L (3.5-5.1)
[2023-12-19 07:30] LABS: ANION GAP 4.3 (5-15)
[2023-12-20] MEDS ORDERED: Citalopram 20 MG Tab PO SCH (09:00)
== END 2023-12-19 18:37 | disposition home or self-care (01) | DRG 189 ==
LOC: JD.ED 13:45 → JD.ICU 17:04 → JD.MS 12-16 17:25
PROVIDERS: ADMIT Internal Medicine; ATTEND Pediatrics
PROC: 5A09457 Assistance with Respiratory Ventilation, 24-96 Consecutive Hours, Continuous Positive Airway Pressure (ICD-10-PCS; principal; 2023-12-15)
PROC: 4A133R1 Monitoring of Arterial Saturation, Peripheral, Percutaneous Approach (ICD-10-PCS; 2023-12-15)
DX: J96.22 Acute and chronic respiratory failure with hypercapnia (principal); J44.1 Chronic obstructive pulmonary disease with (acute) exacerbation; J96.21 Acute and chronic respiratory failure with hypoxia; Z66 Do not resuscitate; F41.9 Anxiety disorder, unspecified; F32.A Depression, unspecified; E87.6 Hypokalemia; Z99.81 Dependence on supplemental oxygen; Z79.51 Long term (current) use of inhaled steroids; Z79.899 Other long term (current) drug therapy; Z87.81 Personal history of (healed) traumatic fracture; Z98.890 Other specified postprocedural states; Z87.891 Personal history of nicotine dependence
CPT/HCPCS: 36415; 36600; 71045; 80053; 82803 ×2; 83880; 84484; 85025; 93005; 94640; 94660; 96361; 96374; 99285; J2930; J7030; 80048; 83735; 93010; 94762; 99223; 99233; 99284; A9270-GY; J0456; J1644; J3470; J3490; J7050; J7612-GY; J7620-GY

== ENCOUNTER 2024-01-02 14:14 | Emergency (ER) | payer MEDICARE, OTHER ==
[2024-01-02] MEDS ORDERED: Sodium Chloride 0.9% 10 ML Syringe FLUSH PRN (14:30)
[2024-01-02 15:02] LABS: BASOPHILS PERCENT AUTO 0.1 % (0.0-1.0); HEMATOCRIT 43.4 % (42.0-52.0); HEMOGLOBIN 12.7 gm/dl (14.0-18.0); IMMATURE GRAN ABSOLUTE AUTO 0.03 K/mm3 (0.00-0.05); IMMATURE GRAN PERCENT AUTO 0.3 % (0.0-0.4); LYMPHOCYTES ABSOLUTE AUTO 0.3 K/mm3 (1.0-4.8); LYMPHOCYTES PERCENT AUTO 2.8 % (24.0-44.0); MEAN CORPUSCULAR HEMOGLOBIN 30.3 pg (28.0-32.0); MEAN CORPUSCULAR HGB CONC 29.3 g/dl (32.0-36.0); MEAN CORPUSCULAR VOLUME 103.6 fl (83.0-99.0); MEAN PLATELET VOLUME 10.2 fl (9.4-12.4); MONOCYTES ABSOLUTE AUTO 0.4 K/mm3 (0.0-0.8); MONOCYTES PERCENT AUTO 3.9 % (0.0-8.0); NEUTROPHILS ABSOLUTE AUTO 8.7 K/mm3 (1.8-7.7); NEUTROPHILS PERCENT AUTO 92.9 % (41.0-71.0); PLATELET COUNT,PLT 112 K/mm3 (150-400); RED BLOOD CELL COUNT 4.19 M/mm3 (4.52-5.90); WHITE BLOOD CELL COUNT,WBC 9.31 K/mm3 (3.9-11.3)
[2024-01-02 15:13] LABS: BASE EXCESS ARTERIAL 21.4 (-2-2.0); BICARBONATE,ARTERIAL 53.3 meq/L (22.0-26.0); O2 SATURATION ARTERIAL 90.1 % (96.0-97.0)
[2024-01-02 15:15] LABS: PCO2 ARTERIAL 117.9 mmHg (35.0-45.0)
[2024-01-02 15:55] LABS: A/G RATIO 1.3 (1-2); ALBUMIN 3.4 g/dl (3.4-5.0); ANION GAP 0.7 (5-15); BILIRUBIN TOTAL 0.5 mg/dL (0.2-1.0); BUN/CREATININE RATIO 28.6 (14-18); CREATININE 0.7 mg/dL (0.7-1.3); EST CRCL DRUG DOSING (CG) 98.55 mL/min; POTASSIUM,K 4.7 mEq/L (3.5-5.1); PROTEIN TOTAL,TP 6.1 g/dl (6.4-8.2)
[2024-01-02 15:56] LABS: C-REACTIVE PROTEIN 0.18 mg/dL (<0.30)
[2024-01-02 22:15] LABS: BASE EXCESS ARTERIAL 21.1 (-2-2.0); BICARBONATE,ARTERIAL 51.7 meq/L (22.0-26.0)
[2024-01-02 22:16] LABS: PCO2 ARTERIAL 103.3 mmHg (35.0-45.0)
[2024-01-02] MEDS: Levalbuterol HCl 1.25 MG/3 ML Neb NEB SCH (22:22)
[2024-01-03 05:05] LABS: BASE EXCESS ARTERIAL 20.8 (-2-2.0); O2 SATURATION ARTERIAL 91.7 % (96.0-97.0)
[2024-01-03 05:06] LABS: BASOPHILS PERCENT AUTO 0.3 % (0.0-1.0); EOSINOPHILS PERCENT AUTO 0.1 % (0.0-6.0); HEMATOCRIT 40.4 % (42.0-52.0); HEMOGLOBIN 11.9 gm/dl (14.0-18.0); IMMATURE GRAN ABSOLUTE AUTO 0.02 K/mm3 (0.00-0.05); IMMATURE GRAN PERCENT AUTO 0.2 % (0.0-0.4); LYMPHOCYTES ABSOLUTE AUTO 0.8 K/mm3 (1.0-4.8); LYMPHOCYTES PERCENT AUTO 9.6 % (24.0-44.0); MEAN CORPUSCULAR HEMOGLOBIN 30.5 pg (28.0-32.0); MEAN CORPUSCULAR HGB CONC 29.5 g/dl (32.0-36.0); MEAN CORPUSCULAR VOLUME 103.6 fl (83.0-99.0); MEAN PLATELET VOLUME 9.8 fl (9.4-12.4); MONOCYTES ABSOLUTE AUTO 0.6 K/mm3 (0.0-0.8); MONOCYTES PERCENT AUTO 6.7 % (0.0-8.0); NEUTROPHILS ABSOLUTE AUTO 7.2 K/mm3 (1.8-7.7); NEUTROPHILS PERCENT AUTO 83.1 % (41.0-71.0); PLATELET COUNT,PLT 102 K/mm3 (150-400); WHITE BLOOD CELL COUNT,WBC 8.62 K/mm3 (3.9-11.3)
[2024-01-03 05:06] LABS: PCO2 ARTERIAL 96.5 mmHg (35.0-45.0)
[2024-01-03 05:29] LABS: A/G RATIO 1.3 (1-2); ALBUMIN 3.1 g/dl (3.4-5.0); BILIRUBIN TOTAL 0.7 mg/dL (0.2-1.0); CREATININE 0.6 mg/dL (0.7-1.3); EST CRCL DRUG DOSING (CG) 114.97 mL/min; PROTEIN TOTAL,TP 5.5 g/dl (6.4-8.2)
[2024-01-03 10:31] LABS: BASE EXCESS ARTERIAL 20.5 (-2-2.0); BICARBONATE,ARTERIAL 51.1 meq/L (22.0-26.0); O2 SATURATION ARTERIAL 91.1 % (96.0-97.0)
[2024-01-03 10:34] LABS: PCO2 ARTERIAL 100.3 mmHg (35.0-45.0)
== END 2024-01-03 10:38 | disposition home or self-care (01) ==
LOC: JD.ED 14:14
DX: J44.1 Chronic obstructive pulmonary disease with (acute) exacerbation (principal); Z79.899 Other long term (current) drug therapy
CPT/HCPCS: 36415; 36600; 71045; 80053; 82803; 84484; 85025; 86140; 93005; 94640; 94660; 94760; 99285; J7612